=== PATIENT | female | born 1945 | race Caucasian/White ===

== ENCOUNTER 2018-04-08 14:01 | Emergency (ER) | payer OTHER ==
[~2018-04-08] VITALS: Ht 172.7 cm; Wt 54.4 kg
[~2018-04-08 14:01] MED LIST: ALBU90OI61 INH; ALEN70 PO; ALPR.25 PO; AMLO10 PO; AMLO5 PO; AMOCLA875 PO; ASPI81CH PO; AZIT500 PO; Aspirin EC81 MG PO; CALC1.25T PO; CHLO25B PO; CHOL10002; CHOL10002 PO; Cephalexin500 MG PO; FERR325 PO; FLUSAL2505 INH; GLUC500 PO; GUAI600T33 PO; HYDACE5 PO; IRON150C PO; LEVFLO250 PO; LEVFLO500 PO; LISI5 PO; METF500 PO; Micro-K10 MEQ PO; NEOPOLHYDS OT; OMEP20ER PO; OXYACE5T PO; Prilosec Otc20 MG PO; THEO100ERA PO; TIOT18 IH; TIOT18 INH
[2018-04-08] MEDS ORDERED: METF500C PO (14:29)
[2018-04-08 14:48] LABS: BASOPHILS ABSOLUTE AUTO 0.06 K/mm3 (0.00-0.23); BASOPHILS PERCENT AUTO 1 % (0-2); EOSINOPHILS ABSOLUTE AUTO 0.34 K/mm3 (0.00-0.68); EOSINOPHILS PERCENT AUTO 3 % (0-6); Hematocrit 33.2 % (33.0-51.0); Hemoglobin 11.2 g/dL (11.5-16.0); IMMATURE GRAN ABSOLUTE AUTO 0.06 K/mm3 (0.00-0.10); IMMATURE GRAN PERCENT AUTO 1 % (0-1); LYMPHOCYTES ABSOLUTE AUTO 3.43 K/mm3 (0.84-5.20); LYMPHOCYTES PERCENT AUTO 31 % (21-46); MONOCYTES PERCENT AUTO 6 % (4-13); Mean Corpuscular HGB 30.4 pg (26.0-34.0); Mean Corpuscular HGB Conc 33.7 g/dL (31.5-36.5); Mean Corpuscular Volume 90 fL (80-100); Mean Platelet Volume 8.8 fL (9.1-12.4); NEUTROPHILS ABSOLUTE AUTO 6.46 K/mm3 (1.96-9.15); NEUTROPHILS PERCENT AUTO 59 % (41-73); Platelet Count 325 K/mm3 (150-400); RDW Coefficient Variation 14.2 % (11.7-14.2); RDW Standard Deviation 46.8 fL (35.1-46.3); Red Blood Cell Count 3.68 M/mm3 (3.80-5.20); White Blood Cell Count 11.05 K/mm3 (4.00-11.30)
[2018-04-08 15:38] LABS: Alanine Aminotransfer (ALT/SGP 26 U/L (12-78); Albumin, Blood 3.5 g/dL (3.4-5.0); Albumin/Globulin Ratio 0.7 (0.8-1.8); Alk Phos 85 U/L (50-136); Anion Gap 8 mmol/L (6-16); Aspartate Aminotrans (AST/SGOT 19 U/L (12-37); Bilirubin, Total 0.6 mg/dL (0.1-1.0); Blood Urea Nitrogen 11 mg/dL (8-24); CO2, Blood 23 mmol/L (21-32); Calcium, Blood 8.8 mg/dL (8.5-10.1); Chloride, Blood 101 mmol/L (98-108); Creatinine, Blood 0.79 mg/dL (0.40-1.00); Globulin, Blood 4.7 g/dL (2.2-4.0); Glomerular Filtration Rate >60 (60-); Glucose, Blood 117 mg/dL (70-99); Potassium, Blood 4.1 mmol/L (3.5-5.5); Sodium, Blood 132 mmol/L (136-145); Total Protein, Blood 8.2 g/dL (6.4-8.2); Troponin I <0.015 ng/mL (0.000-0.040)
== END 2018-04-08 18:58 | disposition home or self-care (01) ==
LOC: ER 14:01
PROVIDERS: Emergency Medicine
DX: R55 Syncope and collapse (principal); R07.9 Chest pain, unspecified; Z79.84 Long term (current) use of oral hypoglycemic drugs; Z79.899 Other long term (current) drug therapy; I10 Essential (primary) hypertension; J44.9 Chronic obstructive pulmonary disease, unspecified; F17.210 Nicotine dependence, cigarettes, uncomplicated
CPT/HCPCS: 36415; 71046; 80053; 83735; 83880; 84443; 84484; 85025; 93005; 93010; 99285-25; J7120

== ENCOUNTER 2019-01-11 08:03 | Day surgery (SDC) | payer OTHER ==
[~2019-01-11] VITALS: Ht 152.4 cm; Wt 48.1 kg
[~2019-01-11 08:03] MED LIST changes: +METF500C PO; +SUCR1 PO
--- NOTE | 2019-01-11 08:26 | NUR ---
Ambulatory in Day SurgeryPatient states colon prep results clear. History, Chart, Medications and Allergies reviewed before start of procedure.Lungs clear T/O to Auscultation. Patient confirms NPO status and agrees with scheduled surgery. Patient States Post-Procedure ride home has been arranged.
--- NOTE | 2019-01-11 09:13 | NUR ---
01/11/19 0913 Jenny De Leon PATIENT DETERMINED TO BE ASA APPROPRIATE FOR PROPOFOL SEDATION PRIOR TO START OF PROCEDURE BY DR. RANGEL. 3-LEAD EKG REVIEWED WITH PHYSICIAN PRIOR TO START OF PROCEDURE. PATIENT CONFIRMS NPO STATUS AND AGREES WITH SCHEDULED PROCEDURE. History, Chart, Medications and Allergies reviewed before start of procedure. MONITOR INTACT WITH CONTINUOUS PULSE OXIMETRY AND INTERMITTENT BP. O2 VIA N/C INTACT THROUGHOUT SEDATION/PROCEDURE VIA POM MASK AT 10 L TO START. Bite Block Placed IMMEDIATELY POST HURRICAINE SPRAY TO OROPHARYX PREPROCEDURE.
--- NOTE | 2019-01-11 09:40 | NUR ---
PT TO STEP. DENIES PAIN OR NAUSEA. ADVISED TO PASS AIR IF FEELING CRAMPY AND ABLE.
--- NOTE | 2019-01-11 10:05 | NUR ---
WRITTEN AND VERBAL D/C INSTUCTIONS GIVEN TO PT AND SON WITH STATED UNDERSTANDING. TOLERATING PO.
== END 2019-01-11 22:53 | disposition home or self-care (01) ==
LOC: ORSCMMR 08:03 → ORD 09:00 → ORSCMMR 09:00
PROVIDERS: Internal Medicine Gastroenterology
PROC: 0DBL8ZX Excision of Transverse Colon, Via Natural or Artificial Opening Endoscopic, Diagnostic (ICD-10-PCS; principal; 2019-01-11 09:00)
PROC: 0DBP8ZX Excision of Rectum, Via Natural or Artificial Opening Endoscopic, Diagnostic (ICD-10-PCS; principal; 2019-01-11 09:00)
PROC: 0DB68ZX Excision of Stomach, Via Natural or Artificial Opening Endoscopic, Diagnostic (ICD-10-PCS; principal; 2019-01-11 09:00)
PROC: 0DB98ZX Excision of Duodenum, Via Natural or Artificial Opening Endoscopic, Diagnostic (ICD-10-PCS; principal; 2019-01-11 09:00)
PROC: 0DB48ZX Excision of Esophagogastric Junction, Via Natural or Artificial Opening Endoscopic, Diagnostic (ICD-10-PCS; principal; 2019-01-11 09:00)
PROC: 0DBK8ZX Excision of Ascending Colon, Via Natural or Artificial Opening Endoscopic, Diagnostic (ICD-10-PCS; principal; 2019-01-11 09:00)
DX: R10.13 Epigastric pain (principal); K44.9 Diaphragmatic hernia without obstruction or gangrene; Z12.11 Encounter for screening for malignant neoplasm of colon; D12.2 Benign neoplasm of ascending colon; D12.3 Benign neoplasm of transverse colon; K62.1 Rectal polyp; E11.9 Type 2 diabetes mellitus without complications; I10 Essential (primary) hypertension; J44.9 Chronic obstructive pulmonary disease, unspecified; Z79.899 Other long term (current) drug therapy; F17.210 Nicotine dependence, cigarettes, uncomplicated
CPT/HCPCS: 82947; 88305; 88342; J2704; J7120

== ENCOUNTER 2019-03-18 00:34 | Day surgery (SDC) | payer OTHER ==
[~2019-03-18 00:34] MED LIST changes: +FLUT1DIS5 INH
[2019-03-18 10:33] LABS: Performing Lab VERACYTE; Test Name FNA
== END 2019-03-18 23:10 | disposition home or self-care (01) ==
LOC: US 00:34
PROVIDERS: Internal Medicine Hematology & Oncology
DX: E04.1 Nontoxic single thyroid nodule (principal); C90.00 Multiple myeloma not having achieved remission
CPT/HCPCS: 10005

== ENCOUNTER 2019-05-04 16:00 | Inpatient (IN) | payer OTHER ==
[~2019-05-04] VITALS: Ht 160 cm; Wt 49.3 kg
[2019-05-04 16:43] LABS: BASOPHILS ABSOLUTE AUTO 0.01 K/mm3 (0.00-0.23); BASOPHILS PERCENT AUTO 0 % (0-2); EOSINOPHILS ABSOLUTE AUTO 0.04 K/mm3 (0.00-0.68); EOSINOPHILS PERCENT AUTO 0 % (0-6); Hematocrit 31.6 % (33.0-51.0); Hemoglobin 10.9 g/dL (11.5-16.0); IMMATURE GRAN ABSOLUTE AUTO 0.05 K/mm3 (0.00-0.10); IMMATURE GRAN PERCENT AUTO 0 % (0-1); LYMPHOCYTES ABSOLUTE AUTO 2.65 K/mm3 (0.84-5.20); LYMPHOCYTES PERCENT AUTO 22 % (21-46); MONOCYTES ABSOLUTE AUTO 1.04 K/mm3 (0.16-1.47); MONOCYTES PERCENT AUTO 9 % (4-13); Mean Corpuscular HGB 30.4 pg (26.0-34.0); Mean Corpuscular HGB Conc 34.5 g/dL (31.5-36.5); Mean Platelet Volume 11.8 fL (9.1-12.4); NEUTROPHILS ABSOLUTE AUTO 8.31 K/mm3 (1.96-9.15); NEUTROPHILS PERCENT AUTO 69 % (41-73); Platelet Count 181 K/mm3 (150-400); RDW Coefficient Variation 15.3 % (11.7-14.2); RDW Standard Deviation 49.1 fL (35.1-46.3); Red Blood Cell Count 3.59 M/mm3 (3.80-5.20)
[2019-05-04 17:01] LABS: Alanine Aminotransfer (ALT/SGP 25 U/L (12-78); Albumin, Blood 3.2 g/dL (3.4-5.0); Albumin/Globulin Ratio 1.1 (0.8-1.8); Alk Phos 73 U/L (50-136); Anion Gap 9 mmol/L (6-16); Aspartate Aminotrans (AST/SGOT 9 U/L (12-37); Bilirubin, Total 0.2 mg/dL (0.1-1.0); Blood Urea Nitrogen 17 mg/dL (8-24); CO2, Blood 23 mmol/L (21-32); Calcium, Blood 8.3 mg/dL (8.5-10.1); Chloride, Blood 102 mmol/L (98-108); Creatinine, Blood 0.71 mg/dL (0.40-1.00); Globulin, Blood 2.8 g/dL (2.2-4.0); Glomerular Filtration Rate >60 (60-); Glucose, Blood 117 mg/dL (70-99); Potassium, Blood 2.9 mmol/L (3.5-5.5); Sodium, Blood 134 mmol/L (136-145)
[2019-05-04 17:14] LABS: Mean Corpuscular Volume 88 fL (80-100)
[2019-05-04 17:33] LABS: Source, Urine Clean Catch
[2019-05-04 17:39] LABS: Bilirubin, Urine Neg (Neg); Blood, Urine 1+ (Neg); Glucose Qualitative, Urine Neg (Neg); Ketones, Urine Neg (Neg); Leukocyte Esterase, Urine 3+ (Neg); Nitrite, Urine Neg (Neg); Protein, Urine 2+ (Neg); Specific Gravity, Urine 1.015 (1.003-1.022); Urobilinogen, Urine NORM (Normal)
[2019-05-04 17:58] LABS: Appearance, Urine Hazy (Clear); Color, Urine Yellow (P-Yellow)
[2019-05-04 18:02] LABS: Bacteria Mod /hpf; Red Blood Cells, Urine Not Seen /hpf (0-2); Squamous Epithelial Cells Few /hpf (Few); Trichomonas Few /hpf
[2019-05-04 18:03] LABS: Calcium Oxalate Crystals Many /hpf
[2019-05-04] MEDS ORDERED: CHOL10002 PO (19:24)
[2019-05-04] MEDS ORDERED: CALCIUM 500 MG1 EACH PO (19:26)
[2019-05-04] MEDS ORDERED: FERSU300 PO (19:27)
[2019-05-04] MEDS ORDERED: Revlimid25 MG PO (19:28)
[2019-05-04] MEDS ORDERED: DEXA4 PO (19:28)
[2019-05-04] MEDS ORDERED: ACYC200 PO (19:29)
[2019-05-04] MEDS ORDERED: METF500 PO (22:53)
[2019-05-04] MEDS ORDERED: ONDA4 (22:54)
[2019-05-04] MEDS ORDERED: ALPR.25 (22:55)
[2019-05-04] MEDS ORDERED: Velcade3.5 MG (22:58)
[2019-05-05 02:57] LABS: Campylobacter Sp Not Detected (NOT DETECT); Enteroaggregative E. coli-EAEC Not Detected (NOT DETECT); Enteropathogenic E. coli-EPEC Detected (NOT DETECT); Enterotoxigenic E. coli-ETEC Not Detected (NOT DETECT); Plesiomonas Shigelloides Not Detected (NOT DETECT); Salmonella Sp Not Detected (NOT DETECT); Vibrio Cholerae Not Detected (NOT DETECT); Vibrio Sp Not Detected (NOT DETECT); Yersinia Enterocolitica Not Detected (NOT DETECT)
[2019-05-05 02:58] LABS: Adenovirus F 40/41 Not Detected (NOT DETECT); Astrovirus Not Detected (NOT DETECT); Cryptosporidium Not Detected (NOT DETECT); Cyclospora Cayetanensis Not Detected (NOT DETECT); E. Coli O157 Not Detected (NOT DETECT); Entamoeba Histolytica Not Detected (NOT DETECT); Giardia Lamblia Not Detected (NOT DETECT); Norovirus GI/GII Not Detected (NOT DETECT); Rotavirus A Not Detected (NOT DETECT); Sapovirus Not Detected (NOT DETECT); Shiga Toxin-prod E. coli-STEC Not Detected (NOT DETECT); Shigella/Enteroin E. coli-EIEC Not Detected (NOT DETECT)
[2019-05-05 04:11] LABS: BASOPHILS ABSOLUTE AUTO 0.02 K/mm3 (0.00-0.23); BASOPHILS PERCENT AUTO 0 % (0-2); EOSINOPHILS ABSOLUTE AUTO 0.04 K/mm3 (0.00-0.68); EOSINOPHILS PERCENT AUTO 0 % (0-6); Hematocrit 32.8 % (33.0-51.0); Hemoglobin 11.3 g/dL (11.5-16.0); IMMATURE GRAN ABSOLUTE AUTO 0.04 K/mm3 (0.00-0.10); IMMATURE GRAN PERCENT AUTO 0 % (0-1); LYMPHOCYTES ABSOLUTE AUTO 2.63 K/mm3 (0.84-5.20); LYMPHOCYTES PERCENT AUTO 23 % (21-46); MONOCYTES ABSOLUTE AUTO 0.93 K/mm3 (0.16-1.47); MONOCYTES PERCENT AUTO 8 % (4-13); Mean Corpuscular HGB Conc 34.5 g/dL (31.5-36.5); Mean Corpuscular Volume 90 fL (80-100); Mean Platelet Volume 11.5 fL (9.1-12.4); NEUTROPHILS ABSOLUTE AUTO 7.87 K/mm3 (1.96-9.15); NEUTROPHILS PERCENT AUTO 68 % (41-73); Platelet Count 188 K/mm3 (150-400); RDW Coefficient Variation 15.6 % (11.7-14.2); Red Blood Cell Count 3.64 M/mm3 (3.80-5.20); White Blood Cell Count 11.53 K/mm3 (4.00-11.30)
[2019-05-05 04:38] LABS: Anion Gap 5 mmol/L (6-16); Blood Urea Nitrogen 11 mg/dL (8-24); Bun/Creatinine Ratio 18.5 (12.0-20.0); CO2, Blood 23 mmol/L (21-32); Calcium, Blood 7.7 mg/dL (8.5-10.1); Chloride, Blood 110 mmol/L (98-108); Glomerular Filtration Rate >60 (60-); Glucose, Blood 86 mg/dL (70-99); Potassium, Blood 4.2 mmol/L (3.5-5.5); Sodium, Blood 138 mmol/L (136-145)
[2019-05-05 04:39] LABS: Prealbumin, Blood 17.2 mg/dL (20.0-40.0)
--- NOTE | 2019-05-05 04:39 | NUR ---
SHIFT SUMMARY PT ER ADMIT THIS SHIFT FOR COLITIS C/O DIARRHEA X 2 WEEKS WITH ABD PAIN, LOSS OF APPETITE AND N/V. HYPOKALEMIA R/T DIARRHEA. PRIOR TO ADMISSION PT RECEIVED FLUIDS AND IV ABX, AND SINCE HER ADMISSION SHE HAS BEEN REPLACED WITH A TOTAL OF 60 MEQ OF IV POTASSIUM PER ORDERS AND CONTINIOUS FLUIDS AT 100 ML/HR. PT ALSO RECEIVED FLAGYL. SHE HAS HAD A COUPLE LOOSE STOOLS, ONE INCONTINENT. GI PANEL SENT WHICH WAS POSITIVE FOR E COLI. PT DENIES N/V, AND HAS DECLINED ANYTHING FOR PAIN. PT INDEPENDENT IN THE ROOM. VITALS ARE STABLE. STAT POTASSIUM THIS MORNING CAME BACK WITHIN NORMAL LIMITS. ADMISSION COMPLETE. MED REC INCOMPLETE. WILL NOTIFY DAYSHIFT RN FOR FOLLOW UP. WILL CONTINUE TO MONITOR AND REPORT TO ONCOMING RN.
--- NOTE | 2019-05-05 16:17 | NUR ---
[facility] intial note: Mrs. Lim appears quite frail and weak. She was lying in bed. Her son was at bedside. He said nothing to me and did not look up from his phone. Jennifer lemusves she will get better. She does not know if her cancer treatments are palliative or curative. She is non-zoroastrianism, but was gracious about me visiting. She was too frail for lengthy conversation. I offered encouragement and assurance of excellent care and attention. She denied needs or concerns. I will remain available.
--- NOTE | 2019-05-05 17:58 | NUR ---
SHIFT SUMMARY PT RESTING IN BED MOST THE DAY. NAPPING ON & OFF. PT RECIEVED SHOWER THIS SHIFT. NO CHANGES IN ASSESSMENT AT THIS TIME. VSS. WILL CONTINUE TO MONITOR UNTIL TURNOVER IS COMPLETE.
--- NOTE | 2019-05-06 03:55 | NUR ---
SHIFT SUMMARY PATIENT HAD NO ACUTE CHANGES OBSERVED THIS SHIFT. AXO X3 AND INDEPENDENT IN THE ROOM. PIV REMAINS INTACT. NS INFUSING AT 100 mL/HR. IV ABX INFUSED. DENIES PAIN, SOB, AND N/V. TAKES MEDICATION WHOLE WITH WATER. COOPERATIVE WITH CARE. CALL LIGHT IN REACH. BED IN LOWEST POSITION. WILL CONTINUE TO MONITOR UNTIL DAY SHIFT NURSE ASSUMES CARE.
[2019-05-06 05:17] LABS: BASOPHILS ABSOLUTE AUTO 0.02 K/mm3 (0.00-0.23); BASOPHILS PERCENT AUTO 0 % (0-2); EOSINOPHILS ABSOLUTE AUTO 0.09 K/mm3 (0.00-0.68); EOSINOPHILS PERCENT AUTO 1 % (0-6); Hematocrit 32.4 % (33.0-51.0); Hemoglobin 10.9 g/dL (11.5-16.0); IMMATURE GRAN ABSOLUTE AUTO 0.04 K/mm3 (0.00-0.10); IMMATURE GRAN PERCENT AUTO 0 % (0-1); LYMPHOCYTES ABSOLUTE AUTO 2.82 K/mm3 (0.84-5.20); LYMPHOCYTES PERCENT AUTO 29 % (21-46); MONOCYTES ABSOLUTE AUTO 0.86 K/mm3 (0.16-1.47); MONOCYTES PERCENT AUTO 9 % (4-13); Mean Corpuscular HGB 29.9 pg (26.0-34.0); Mean Corpuscular HGB Conc 33.6 g/dL (31.5-36.5); Mean Corpuscular Volume 89 fL (80-100); Mean Platelet Volume 10.5 fL (9.1-12.4); NEUTROPHILS ABSOLUTE AUTO 5.89 K/mm3 (1.96-9.15); NEUTROPHILS PERCENT AUTO 61 % (41-73); Platelet Count 188 K/mm3 (150-400); RDW Coefficient Variation 15.7 % (11.7-14.2); Red Blood Cell Count 3.64 M/mm3 (3.80-5.20); White Blood Cell Count 9.72 K/mm3 (4.00-11.30)
[2019-05-06 05:38] LABS: Alanine Aminotransfer (ALT/SGP 20 U/L (12-78); Albumin, Blood 2.9 g/dL (3.4-5.0); Albumin/Globulin Ratio 1.1 (0.8-1.8); Alk Phos 67 U/L (50-136); Anion Gap 7 mmol/L (6-16); Aspartate Aminotrans (AST/SGOT 10 U/L (12-37); Bilirubin, Total 0.3 mg/dL (0.1-1.0); Blood Urea Nitrogen 6 mg/dL (8-24); Bun/Creatinine Ratio 9.3 (12.0-20.0); CO2, Blood 25 mmol/L (21-32); Calcium, Blood 7.6 mg/dL (8.5-10.1); Chloride, Blood 105 mmol/L (98-108); Creatinine, Blood 0.64 mg/dL (0.40-1.00); Globulin, Blood 2.6 g/dL (2.2-4.0); Glomerular Filtration Rate >60 (60-); Glucose, Blood 83 mg/dL (70-99); Magnesium, Blood 1.7 mg/dL (1.6-2.4); Potassium, Blood 3.2 mmol/L (3.5-5.5); Sodium, Blood 137 mmol/L (136-145); Total Protein, Blood 5.5 g/dL (6.4-8.2)
--- NOTE | 2019-05-06 16:28 | NUR ---
Upon receiving an admit referral, I visited patient and found her lying in bed and alert. Patient openly shared about her douglas with cancer, her family unit complications and her spiritual background. Patient shared about how tough she is but also about some of her fears. I listened empathically, normalized her experience, reinforced helpful attitudes and practices and provided spiritual guidance and prayer. Patient responded well and and displayed evidence of restored hannah.
--- NOTE | 2019-05-06 18:09 | NUR ---
PATIENT HAS RESTED MOST OF THE SHIFT. PATIENT ABLE TO AMBULATE SAFELY TO THE RESTROOM AND USES CALL LIGHT APPROPRIATLEY. SHE HAS HAD NO COMPLAINTS OF PAIN, SOB, NV. FAMILY AT BEDSIDE THROUGH OUT SHIFT. NO ACUTE CHANGES.
--- NOTE | 2019-05-07 03:55 | NUR ---
SHIFT SUMMARY PATIENT HAD NO ACUTE CHANGES OBSERVED THIS SHIFT. RT IN FOR BREATHING TX AT SHIFT CHANGE. AXOX 3 AND INDEPENDENT. PIV REMAINS INTACT. NS INFUSING AT 100 mL/HR. TAKES MEDICATION WHOLE WITH WATER. VSS/AFEBRILE. DENIES PAIN, SOB, AND N/V. IV ABX INFUSED. COOPERATIVE WITH CARE. CALL LIGHT IN REACH. BED IN LOWEST POSITION. WILL CONTINUE TO MONITOR UNTIL DAY SHIFT NURSE ASSUMES CARE.
--- NOTE | 2019-05-07 15:05 | NUR ---
Pt up in chair, Review of her needs and symptoms. She denies headaches, She states after her treatment the rusing and ringinin gin ears is so bad she can barely hear. She denies sores in her mouth or nose no tounge soreness. She has significant dry eye and a gritty feeling of a film over her eyes. She has saline and visine that keeps it reduced. She has minimal dyspnea, no GERD some mild nausea. Food is very difficult, today less cramping and bloating. She denies having difficulty voiding. She denies falls states she is moderately active. she has mild general pain and fatigue comes and goes. moderate sleep. She states that she has to wear gloves and when she talkes her meds and was advised to be careful with contact due to the medications. She states she still has her ovaries so they make her take a test before filling her meds. Review if this was maybe a different test and she states it is a pregnacy test. Pt is tearfull because she was told she is toxic from the medications so she isolates and stays in bed and will not let her family touch her. She is accepting of her care plan but unsure of some of the details. Asked for eye drops from physician. will see if I can get her some information on her potential exposure and give her some comfort and clarity on her care.
--- NOTE | 2019-05-07 15:38 | NUR ---
updated mulu iglesias on pt understanding of treatment. She will give pt some education and will follow up with staff at cancer center. Goal is to reduce patients fear and isolation. will follow up will advance care planning
--- NOTE | 2019-05-07 17:00 | NUR ---
PATIENT IS A/OX4 AND UP INDEPENDENTLY IN ROOM. TOLERATING REGULAR DIET, ENCOURAGING PO INTAKE. 20G IV TO L FA WNL, NS @ 100ML/HR INFUSING. PATIENT RECEIVING ROCEPHIN AND FLAGYL. CONTINENT OF BOWEL AND BLADDER. SKIN INTACT. DENIES ANY PAIN OR NAUSEA THIS SHIFT. VSS, ON RA. CALM AND COOPERATIVE WITH CARE, CALLS APPROPRIATELY FOR ASSISTANCE.
--- NOTE | 2019-05-08 05:02 | NUR ---
SHIFT SUMMARY PT PLEASANT AND COOPERATIVE. SLEPT WELL THROUGH MUCH OF THE NIGHT. DENIED ANY ABD PAIN/DISCOMFORT OR NAUSEA. CONTINUES TO HAVE SOME LOOSE STOOL BUT PT STATES, "MUCH BETTER THAN IT WAS". NEW IV PLACED TO RFA DUE TO LFA IV LEAKING. MILD ABD DISTENTION THAT PT STATES IS NORMAL. ABD IS SOFT AND NON TENDER. PT TOLERATING FOOD WELL, EAGER TO COMPLETE MEALS AND IMPROVE WEIGHT. VITAL SIGNS STABLE. NO ACUTE CHANGES THIS SHIFT.
[2019-05-08 05:25] LABS: BASOPHILS ABSOLUTE AUTO 0.03 K/mm3 (0.00-0.23); BASOPHILS PERCENT AUTO 0 % (0-2); EOSINOPHILS ABSOLUTE AUTO 0.21 K/mm3 (0.00-0.68); EOSINOPHILS PERCENT AUTO 2 % (0-6); Hematocrit 32.9 % (33.0-51.0); Hemoglobin 11.1 g/dL (11.5-16.0); IMMATURE GRAN ABSOLUTE AUTO 0.06 K/mm3 (0.00-0.10); IMMATURE GRAN PERCENT AUTO 1 % (0-1); LYMPHOCYTES ABSOLUTE AUTO 2.41 K/mm3 (0.84-5.20); LYMPHOCYTES PERCENT AUTO 21 % (21-46); MONOCYTES ABSOLUTE AUTO 0.94 K/mm3 (0.16-1.47); MONOCYTES PERCENT AUTO 8 % (4-13); Mean Corpuscular HGB 30.3 pg (26.0-34.0); Mean Corpuscular HGB Conc 33.7 g/dL (31.5-36.5); Mean Corpuscular Volume 90 fL (80-100); Mean Platelet Volume 10.2 fL (9.1-12.4); NEUTROPHILS ABSOLUTE AUTO 7.97 K/mm3 (1.96-9.15); NEUTROPHILS PERCENT AUTO 69 % (41-73); Platelet Count 258 K/mm3 (150-400); RDW Coefficient Variation 15.6 % (11.7-14.2); RDW Standard Deviation 51.5 fL (35.1-46.3); Red Blood Cell Count 3.66 M/mm3 (3.80-5.20); White Blood Cell Count 11.62 K/mm3 (4.00-11.30)
[2019-05-08 06:04] LABS: Anion Gap 7 mmol/L (6-16); Blood Urea Nitrogen 7 mg/dL (8-24); Bun/Creatinine Ratio 12.1 (12.0-20.0); CO2, Blood 25 mmol/L (21-32); Chloride, Blood 104 mmol/L (98-108); Creatinine, Blood 0.58 mg/dL (0.40-1.00); Glomerular Filtration Rate >60 (60-); Glucose, Blood 86 mg/dL (70-99); Magnesium, Blood 1.7 mg/dL (1.6-2.4); Potassium, Blood 3.6 mmol/L (3.5-5.5); Sodium, Blood 136 mmol/L (136-145)
[2019-05-08] MEDS ORDERED: ALPR.25 PO (10:00)
[2019-05-08] MEDS ORDERED: Amoxicillin500 M1 PO (10:02)
[2019-05-08] MEDS ORDERED: METR500 PO (10:03)
[2019-05-08] MEDS ORDERED: ONDA4 PO (10:09)
--- NOTE | 2019-05-08 11:30 | NUR ---
DISCHARGE PT STATE FEELING IMPROVED, DIARRHEA HAS SLOWED, NO LONGER WATERY. DR HAWK IN TO SEE HER STATE SHE MAY GO HOME TODAY, PT STATE FEELS READY. DR PROVIDE D/C HOME ORDERS. SCRIPTS FAXED TO [facility]/REQUEST. IV D/C INTACT. D/C INSTRUCT REVIEWED w PT & FAMILY. PT DECLINES W/C ESCORT FROM HOSP PREFERS TO AMBULATE. PLEASANT/APPRECIATIVE AFFECT.
== END 2019-05-08 11:30 | disposition home or self-care (01) | DRG 392 ==
LOC: ER 16:00 → MEDS 19:17
PROVIDERS: Emergency Medicine; Hospitalist; Internal Medicine; Nurse Practitioner Acute Care; ADMIT Internal Medicine
DX: K52.9 Noninfective gastroenteritis and colitis, unspecified (principal); C90.00 Multiple myeloma not having achieved remission; E44.0 Moderate protein-calorie malnutrition; Z68.1 Body mass index [BMI] 19.9 or less, adult; E87.6 Hypokalemia; D64.81 Anemia due to antineoplastic chemotherapy; I10 Essential (primary) hypertension; E11.9 Type 2 diabetes mellitus without complications; J44.9 Chronic obstructive pulmonary disease, unspecified; F17.210 Nicotine dependence, cigarettes, uncomplicated; Z92.21 Personal history of antineoplastic chemotherapy; Z79.51 Long term (current) use of inhaled steroids; Z79.899 Other long term (current) drug therapy
CPT/HCPCS: 0097U; 36415; 74177; 80048; 80053; 81001; 82784; 82947; 83690; 83735; 84132; 84134; 84165; 85025; 86334; 87086; 93005; 93010; 94640; 94760; 96361; 96365-59; 96367; 96375; 97161; 97530; 99285-25; A9270; J0696; J0744; J1650; J2405; J3475; J3480; J7030; Q9967

== ENCOUNTER → 2019-07-01 | Outpatient (CLI) | payer OTHER ==
[~2019-07-01] MED LIST changes: +ACYC200 PO; +ALPR.25; +Amoxicillin500 M1 PO; +CALCIUM 500 MG1 EACH PO; +DEXA4 PO; +FERSU300 PO; +METR500 PO; +ONDA4; +ONDA4 PO; +Revlimid25 MG PO; +Velcade3.5 MG
== END ==
LOC: LAB 14:00 → LAB SHORT 14:00 → LAB FUT 06-30 07:35
DX: C90.00 Multiple myeloma not having achieved remission (principal)
CPT/HCPCS: 81025

== ENCOUNTER 2019-11-10 16:44 | Inpatient (IN) | payer OTHER ==
[~2019-11-10] VITALS: Ht 160 cm; Wt 41.9 kg
[~2019-11-10 16:44] MED LIST changes: -ALPR1 PO; -CALCIUM GUMMIE1 EACH PO; -LEVO750 PO; -PRED20 PO; -PREG50 PO
[2019-11-10 17:43] LABS: BASOPHILS ABSOLUTE AUTO 0.03 K/mm3 (0.00-0.23); BASOPHILS PERCENT AUTO 0 % (0-2); EOSINOPHILS ABSOLUTE AUTO 0.05 K/mm3 (0.00-0.68); EOSINOPHILS PERCENT AUTO 0 % (0-6); Hemoglobin 10.1 g/dL (11.5-16.0); IMMATURE GRAN ABSOLUTE AUTO 0.13 K/mm3 (0.00-0.10); IMMATURE GRAN PERCENT AUTO 1 % (0-1); LYMPHOCYTES ABSOLUTE AUTO 1.22 K/mm3 (0.84-5.20); LYMPHOCYTES PERCENT AUTO 8 % (21-46); MONOCYTES ABSOLUTE AUTO 1.31 K/mm3 (0.16-1.47); MONOCYTES PERCENT AUTO 9 % (4-13); Mean Corpuscular HGB 30.1 pg (26.0-34.0); Mean Corpuscular HGB Conc 33.7 g/dL (31.5-36.5); Mean Corpuscular Volume 89 fL (80-100); Mean Platelet Volume 10.3 fL (9.1-12.4); NEUTROPHILS ABSOLUTE AUTO 12.08 K/mm3 (1.96-9.15); NEUTROPHILS PERCENT AUTO 82 % (41-73); Platelet Count 214 K/mm3 (150-400); RDW Coefficient Variation 14.2 % (11.7-14.2); RDW Standard Deviation 46.1 fL (35.1-46.3); Red Blood Cell Count 3.36 M/mm3 (3.80-5.20); White Blood Cell Count 14.82 K/mm3 (4.00-11.30)
[2019-11-10 18:11] LABS: Influenza A Negative (NEGATIVE); Influenza B Negative (NEGATIVE)
[2019-11-10 18:36] LABS: Alanine Aminotransfer (ALT/SGP 58 U/L (12-78); Albumin, Blood 2.8 g/dL (3.4-5.0); Albumin/Globulin Ratio 0.7 (0.8-1.8); Alk Phos 103 U/L (50-136); Anion Gap 5 mmol/L (6-16); Aspartate Aminotrans (AST/SGOT 18 U/L (12-37); Bilirubin, Total 0.4 mg/dL (0.1-1.0); Blood Urea Nitrogen 13 mg/dL (8-24); Bun/Creatinine Ratio 23.9 (12.0-20.0); CO2, Blood 24 mmol/L (21-32); Chloride, Blood 102 mmol/L (98-108); Creatinine, Blood 0.55 mg/dL (0.40-1.00); Globulin, Blood 4.3 g/dL (2.2-4.0); Glomerular Filtration Rate >60 (60-); Glucose, Blood 101 mg/dL (70-99); Potassium, Blood 2.9 mmol/L (3.5-5.5); Sodium, Blood 131 mmol/L (136-145); Total Protein, Blood 7.1 g/dL (6.4-8.2)
[2019-11-10] MEDS ORDERED: PREG50 PO (21:14)
[2019-11-10 21:16] LABS: Source, Urine Clean Catch
[2019-11-10 21:20] LABS: Bilirubin, Urine Neg (Neg); Blood, Urine 4+ (Neg); Glucose Qualitative, Urine Neg (Neg); Ketones, Urine Neg (Neg); Leukocyte Esterase, Urine Neg (Neg); Nitrite, Urine Neg (Neg); Protein, Urine 4+ (Neg); Specific Gravity, Urine 1.015 (1.003-1.022); Urobilinogen, Urine NORM (Normal)
[2019-11-10 21:26] LABS: Appearance, Urine Clear (Clear); Color, Urine Yellow (P-Yellow)
[2019-11-10 21:28] LABS: Bacteria Rare /hpf; Squamous Epithelial Cells Few /hpf (Few); White Blood Cells, Urine Not Seen /hpf (0-5)
--- NOTE | 2019-11-11 02:52 | NUR ---
2310: PT ARRIVED TO FLOOR. PT ABLE TO AMBULATE FROM STRETCHER TO BED WITH SBA. PER PATIENT SHE USES A CANE AT HOME OR WHEN SHE GOES OUT. SHE LIVS WITH HER DAUGHTER. SHE SAID HER DAUGHTER IS TO BRING THE MED LIST TOMORROW. (I WILL CALL HER IN THE AM TO VERIFY) PT IS AOX4 AND DENIES PAIN A THIS TIME. PT HAS A TEMP AND WAS GIVEN TYLENOL PER EMAR. RECEIVED NS @ 125ML/HR. MEDS GIVEN PER EMAR. PT RESTING QUIETLY. BED LOW AND LOCKED/ALARMED. CALL MORENO WITHIN REACH
[2019-11-11 05:25] LABS: BASOPHILS ABSOLUTE AUTO 0.02 K/mm3 (0.00-0.23); BASOPHILS PERCENT AUTO 0 % (0-2); EOSINOPHILS ABSOLUTE AUTO 0.02 K/mm3 (0.00-0.68); EOSINOPHILS PERCENT AUTO 0 % (0-6); Hematocrit 28.7 % (33.0-51.0); Hemoglobin 9.5 g/dL (11.5-16.0); IMMATURE GRAN PERCENT AUTO 2 % (0-1); LYMPHOCYTES ABSOLUTE AUTO 0.56 K/mm3 (0.84-5.20); LYMPHOCYTES PERCENT AUTO 4 % (21-46); MONOCYTES ABSOLUTE AUTO 0.33 K/mm3 (0.16-1.47); MONOCYTES PERCENT AUTO 3 % (4-13); Mean Corpuscular HGB 29.5 pg (26.0-34.0); Mean Corpuscular HGB Conc 33.1 g/dL (31.5-36.5); Mean Corpuscular Volume 89 fL (80-100); Mean Platelet Volume 10.1 fL (9.1-12.4); NEUTROPHILS ABSOLUTE AUTO 12.08 K/mm3 (1.96-9.15); NEUTROPHILS PERCENT AUTO 91 % (41-73); Platelet Count 203 K/mm3 (150-400); RDW Coefficient Variation 14.1 % (11.7-14.2); RDW Standard Deviation 45.7 fL (35.1-46.3); Red Blood Cell Count 3.22 M/mm3 (3.80-5.20); White Blood Cell Count 13.21 K/mm3 (4.00-11.30)
[2019-11-11 05:44] LABS: Alanine Aminotransfer (ALT/SGP 48 U/L (12-78); Albumin, Blood 2.3 g/dL (3.4-5.0); Albumin/Globulin Ratio 0.5 (0.8-1.8); Alk Phos 93 U/L (50-136); Anion Gap 7 mmol/L (6-16); Aspartate Aminotrans (AST/SGOT 20 U/L (12-37); Bilirubin, Total 0.4 mg/dL (0.1-1.0); Blood Urea Nitrogen 18 mg/dL (8-24); Bun/Creatinine Ratio 25.4 (12.0-20.0); CO2, Blood 24 mmol/L (21-32); Calcium, Blood 7.6 mg/dL (8.5-10.1); Chloride, Blood 104 mmol/L (98-108); Creatinine, Blood 0.71 mg/dL (0.40-1.00); Globulin, Blood 4.3 g/dL (2.2-4.0); Glomerular Filtration Rate >60 (60-); Glucose, Blood 118 mg/dL (70-99); Potassium, Blood 3.6 mmol/L (3.5-5.5); Sodium, Blood 135 mmol/L (136-145); Total Protein, Blood 6.6 g/dL (6.4-8.2)
[2019-11-11 06:11] LABS: Adenovirus Not Detected (NOT DETECT); Coronavirus 229E Not Detected (NOT DETECT); Coronavirus HKU1 Not Detected (NOT DETECT); Coronavirus NL63 Not Detected (NOT DETECT); Coronavirus OC43 Detected (NOT DETECT)
[2019-11-11 06:12] LABS: Bordetella pertussis Not Detected (NOT DETECT); Chlamydophila pneumoniae Not Detected (NOT DETECT); Human Metapneumovirus Not Detected (NOT DETECT); Human Rhinovirus/Enterovirus Not Detected (NOT DETECT); Influenza A Not Detected (NOT DETECT); Influenza A/2009-H1 Not Detected (NOT DETECT); Influenza A/H1 Not Detected (NOT DETECT); Influenza A/H3 Not Detected (NOT DETECT); Influenza B Not Detected (NOT DETECT); Mycoplasma pneumoniae Not Detected (NOT DETECT); Parainfluenza Virus 1 Not Detected (NOT DETECT); Parainfluenza Virus 2 Not Detected (NOT DETECT); Parainfluenza Virus 3 Not Detected (NOT DETECT); Parainfluenza Virus 4 Not Detected (NOT DETECT); Respiratory Syncytial Virus Not Detected (NOT DETECT)
--- NOTE | 2019-11-11 07:44 | NUR ---
END OF SHIFT: PATIENT RECEVED LEVAQUIN IVPB PER ORDER, AND 20 MEQ K-RIDERS (X2) DURING THE NIGHT.HER LUNG SOUNDS ARE COARSE THRU OUT AND SOME CRACKLES OVER THE BASES. NON PREODUCTIVE COUGH. SHE HAS BEED GETTING CHEMO FOR MULT. MYELOMA HER LAST TREATMENT WAS 10/28PASSED THIS TO DAY RN. [id number] TO BREING MED LIST TODAY
--- NOTE | 2019-11-11 12:06 | NUR ---
PER DR. DWYER, PATIENT MAY REMOVE TELE FOR SHOWER.
--- NOTE | 2019-11-11 16:27 | NUR ---
Received call from bedside RN Sirda and discussed case. Pt would like to be DNR and would benefit from further conversaiton about completing a POLST. Pt resting in bed and is A&Ox4. Pt denies pain, anxiety, and dyspnea. Engaged in therapeutic discussion regarding code status and competing POLST. Educated on life sustaining measures including risk factors and implications. Pt states she does not want CPR and does not want to be intubated. Assisted Pt in completing POLST with Pt's wishes being DNR with Limited Treatment. Listened as Pt discusses her cancer and plans to stop treatment in the near future. Discussed hospice as an option when she is ready to stop treatments. Pt expresses appreciation of visit and has no other concerns. Palliative Care will obtain copy of POLST for medical records upon hospitalist signature.
--- NOTE | 2019-11-11 18:12 | NUR ---
Shift Summary A/Ox3, pleasant and cooperative with care. SBA to bathroom, continent. Denies pain, c/o slight dyspnea on exertion. Patient on RA, saturations >94%. SO at bedside for most of the day. Pt c/o hx of spasms in throat. Dr. Lane notified, speech eval ordered. No signs of aspiration. No other concerns.
[2019-11-11] MEDS ORDERED: CALCIUM GUMMIE1 EACH PO (18:15)
[2019-11-11] MEDS ORDERED: ALPR1 PO (18:18)
--- NOTE | 2019-11-11 18:22 | NUR ---
Shift Summary A/Ox3. Pleasant and cooperative lady, afebrile during my shift. No c/o pain. Pt had shower today, on RA, saturations >90%. Palliative care nurse Cain consulted, POLST in room to be signed by , DNR band in place. SBA to bathroom d/t lines. Med rec completed by chargeback specialist. No other concerns.
--- NOTE | 2019-11-12 06:18 | NUR ---
SHIFT SUMMARY NO ACUTE CHANGES TO REPORT THIS SHIFT. PT HAS RESTED COMFORTABLY T/O THE NIGHT. PT STILL COMPLAINS OF SOB. IV SOLUMEDROL CONTINUED PER ORDERS. LUNGS DIMINISHED T/O. PT RESP APPEAR EVEN AND UNLABORED AT REST. PT A/OX4 AND CALLS APPROPRIATELY. ASSESSMENT UNCHANGED. IVF INFUSING ORDERED. BED IN LOWEST POSITION, CALL LIGHT WITHIN REACH. WILL CONTINUE TO MONITOR AND REPORT TO ONCOMING RN.
--- NOTE | 2019-11-12 13:41 | NUR ---
Spiritual care visit conducted. Patient is lsitting up in bed and alert. Patient shares about her life, family and medical history. Patient talks about her family unit complications and her concerns about her cancer and how things will go for her down the road. I listen empathically and provide a calming presence and grief support. Patient responds well and shows signs of being comforted and encouraged. I will continue to remain available to patient and family.
--- NOTE | 2019-11-12 17:33 | NUR ---
PATIENT A/OX4, UP INDEPENDENTLY IN ROOM. VSS, ON RA TODAY. 20G IV TO R FA, NS @ 100ML/HR INFUSING. ADA DIET, ACHS BLOOD SUGARS. PATIENT DENIES ANY PAIN OR DISCOMFORT. SKIN INTACT. PATIENT HOPES TO DC HOME TOMORROW.
--- NOTE | 2019-11-13 04:44 | NUR ---
SUMMARY PT HAD NO ISSUES OR COMPLAINTS. PT IS EAGER TO GO HOME. PT FAMILY VISITED. PT HAS SLEPT SINCE FAMILY LEFT FOR THE NIGHT. PT CURRENTLY SLEEPING AND BREATHING EASY. CALL LIGHT IN REACH.
[2019-11-13] MEDS ORDERED: GUAI600T33 PO (11:41)
[2019-11-13] MEDS ORDERED: PRED20 PO (11:42)
[2019-11-13] MEDS ORDERED: LEVO750 PO (11:43)
--- NOTE | 2019-11-13 12:55 | NUR ---
PT DISCHARGED. PT DISCHARGED AT 1255. PT IN STABLE CONDTION WITH VSS. PT EDUCATED ON DC INSTRUCTIONS. MEDS CALLED TO [facility]. PT DENIES QUESTIONS AT THIS TIME. PT ESCORTED OUT BY AIDE. TO BE DRIVEN HOME BY SON.
== END 2019-11-13 12:55 | disposition home health service (06) | DRG 871 ==
LOC: ER 16:44 → MEDS 23:11
PROVIDERS: Physician Assistant; ADMIT Internal Medicine
DX: A41.9 Sepsis, unspecified organism (principal); J96.01 Acute respiratory failure with hypoxia; J18.9 Pneumonia, unspecified organism; J44.0 Chronic obstructive pulmonary disease with (acute) lower respiratory infection; E46 Unspecified protein-calorie malnutrition; C90.00 Multiple myeloma not having achieved remission; J91.8 Pleural effusion in other conditions classified elsewhere; Z68.1 Body mass index [BMI] 19.9 or less, adult; E11.9 Type 2 diabetes mellitus without complications; I10 Essential (primary) hypertension; E87.6 Hypokalemia; D63.8 Anemia in other chronic diseases classified elsewhere; E83.42 Hypomagnesemia; R26.89 Other abnormalities of gait and mobility; Z66 Do not resuscitate; F17.210 Nicotine dependence, cigarettes, uncomplicated; D89.9 Disorder involving the immune mechanism, unspecified; K25.9 Gastric ulcer, unspecified as acute or chronic, without hemorrhage or perforation
CPT/HCPCS: 0099U; 36415; 71046; 80053; 81001; 82947; 83605; 83735; 85025; 87040; 87804; 94640; 94760; 96365; 96375; 97110; 97116; 97161; 97165; 99285-25; A9270; A9270-GY; J0456; J0713; J1650; J1956; J2405; J2543; J2930; J3010; J3370; J3480; J7030; J7050; J7512

== ENCOUNTER → 2019-11-10 | Outpatient (CLI) | payer OTHER ==
[~2019-11-10] MED LIST changes: +ALPR1 PO; +CALCIUM GUMMIE1 EACH PO; +LEVO750 PO; +PRED20 PO; +PREG50 PO
[2019-11-10 16:17] LABS: BASOPHILS ABSOLUTE AUTO 0.03 K/mm3 (0.00-0.23); BASOPHILS PERCENT AUTO 0 % (0-2); EOSINOPHILS ABSOLUTE AUTO 0.08 K/mm3 (0.00-0.68); EOSINOPHILS PERCENT AUTO 1 % (0-6); Hematocrit 30.6 % (33.0-51.0); Hemoglobin 10.3 g/dL (11.5-16.0); IMMATURE GRAN PERCENT AUTO 1 % (0-1); LYMPHOCYTES ABSOLUTE AUTO 1.42 K/mm3 (0.84-5.20); LYMPHOCYTES PERCENT AUTO 10 % (21-46); MONOCYTES ABSOLUTE AUTO 1.54 K/mm3 (0.16-1.47); MONOCYTES PERCENT AUTO 10 % (4-13); Mean Corpuscular HGB 30.1 pg (26.0-34.0); Mean Corpuscular HGB Conc 33.7 g/dL (31.5-36.5); Mean Corpuscular Volume 90 fL (80-100); Mean Platelet Volume 10.3 fL (9.1-12.4); NEUTROPHILS ABSOLUTE AUTO 11.79 K/mm3 (1.96-9.15); NEUTROPHILS PERCENT AUTO 79 % (41-73); Platelet Count 205 K/mm3 (150-400); RDW Coefficient Variation 14.2 % (11.7-14.2); RDW Standard Deviation 45.9 fL (35.1-46.3); Red Blood Cell Count 3.42 M/mm3 (3.80-5.20); White Blood Cell Count 14.96 K/mm3 (4.00-11.30)
[2019-11-10 16:50] LABS: Alanine Aminotransfer (ALT/SGP 62 U/L (12-78); Albumin/Globulin Ratio 0.7 (0.8-1.8); Alk Phos 106 U/L (50-136); Anion Gap 5 mmol/L (6-16); Aspartate Aminotrans (AST/SGOT 21 U/L (12-37); Bilirubin, Total 0.3 mg/dL (0.1-1.0); Blood Urea Nitrogen 15 mg/dL (8-24); Bun/Creatinine Ratio 26.1 (12.0-20.0); CO2, Blood 27 mmol/L (21-32); Calcium, Blood 8.3 mg/dL (8.5-10.1); Chloride, Blood 99 mmol/L (98-108); Creatinine, Blood 0.58 mg/dL (0.40-1.00); Globulin, Blood 4.5 g/dL (2.2-4.0); Glomerular Filtration Rate >60 (60-); Glucose, Blood 107 mg/dL (70-99); Potassium, Blood 3.1 mmol/L (3.5-5.5); Sodium, Blood 131 mmol/L (136-145); Total Protein, Blood 7.5 g/dL (6.4-8.2)
== END | disposition home or self-care (01) ==
LOC: LAB SHORT 15:50 → LAB 15:50
PROVIDERS: Registered Nurse Oncology
DX: C90.00 Multiple myeloma not having achieved remission (principal); R07.0 Pain in throat
CPT/HCPCS: 80053; 85025; 87081; 87430

== ENCOUNTER → 2020-01-05 | Outpatient (CLI) | payer OTHER ==
[~2020-01-05] MED LIST changes: -ACYC200 PO; +ACYC400 PO; +ALPR1 PO; +CALCIUM GUMMIE1 EACH PO; +Duoneb 2.5-0.5 M3 ML NEB; +FURO40 PO; +Florastor250 MG PO; +LEVO750 PO; +POTA10T PO; +PRED20 PO; +PREG50 PO; +VITAMIN D3125 MCG PO
== END | disposition home or self-care (01) ==
LOC: PLD 08:43 → LAB SHORT 08:43
DX: L72.0 Epidermal cyst (principal)
CPT/HCPCS: 88304

== ENCOUNTER 2020-01-06 19:57 | Inpatient (IN) | payer OTHER ==
[~2020-01-06] VITALS: Ht 157.5 cm; Wt 42.2 kg
[~2020-01-06 19:57] MED LIST changes: -ACYC400 PO; -ALPR1 PO; -AMLO10 PO; -CALCIUM GUMMIE1 EACH PO; -Duoneb 2.5-0.5 M3 ML NEB; -FERSU300 PO; -FLUT1DIS5 INH; -FURO40 PO; -Florastor250 MG PO; -POTA10T PO; -PREG50 PO; -SUCR1 PO; -TIOT18 INH; -VITAMIN D3125 MCG PO
[2020-01-06] MEDS ORDERED: FLUT1DIS5 INH (20:28)
[2020-01-06] MEDS ORDERED: TIOT18 INH (20:28)
[2020-01-06] MEDS ORDERED: AMLO10 PO (20:29)
[2020-01-06] MEDS ORDERED: ALBU90OI61 INH (20:29)
[2020-01-06] MEDS ORDERED: SUCR1 PO (20:30)
[2020-01-06 20:31] LABS: Hematocrit 31.3 % (33.0-51.0); Hemoglobin 9.8 g/dL (11.5-16.0); Mean Corpuscular HGB 31.5 pg (26.0-34.0); Mean Corpuscular HGB Conc 31.3 g/dL (31.5-36.5); Mean Corpuscular Volume 101 fL (80-100); NRBC ABSOLUTE 0.08 K/mm3 (0.00-0.02); NRBC Auto 0.4 /100 WBC (0.0-0.2); Platelet Count 255 K/mm3 (150-400); RDW Coefficient Variation 15.4 % (11.7-14.2); RDW Standard Deviation 56.9 fL (35.1-46.3); Red Blood Cell Count 3.11 M/mm3 (3.80-5.20); White Blood Cell Count 18.04 K/mm3 (4.00-11.30)
[2020-01-06] MEDS ORDERED: VITAMIN D3125 MCG PO (20:31)
[2020-01-06] MEDS ORDERED: FERSU300 PO (20:32)
[2020-01-06] MEDS ORDERED: ACYC400 PO (20:32)
[2020-01-06] MEDS ORDERED: METF500 PO (20:33)
[2020-01-06] MEDS ORDERED: PREG50 PO (20:34)
[2020-01-06] MEDS ORDERED: ALPR1 PO (20:35)
[2020-01-06] MEDS ORDERED: CALCIUM GUMMIE1 EACH PO (20:36)
[2020-01-06] MEDS ORDERED: FURO40 PO (20:37)
[2020-01-06] MEDS ORDERED: POTA10T PO (20:37)
[2020-01-06] MEDS ORDERED: Duoneb 2.5-0.5 M3 ML NEB (20:39)
[2020-01-06 20:50] LABS: Alanine Aminotransfer (ALT/SGP 136 U/L (12-78); Albumin, Blood 2.6 g/dL (3.4-5.0); Albumin/Globulin Ratio 0.6 (0.8-1.8); Alk Phos 87 U/L (50-136); Anion Gap 5 mmol/L (6-16); Aspartate Aminotrans (AST/SGOT 78 U/L (12-37); Bilirubin, Total 0.2 mg/dL (0.1-1.0); Blood Urea Nitrogen 19 mg/dL (8-24); Bun/Creatinine Ratio 21.1 (12.0-20.0); CO2, Blood 21 mmol/L (21-32); Calcium, Blood 7.9 mg/dL (8.5-10.1); Chloride, Blood 107 mmol/L (98-108); Globulin, Blood 4.1 g/dL (2.2-4.0); Glomerular Filtration Rate >60 (60-); Glucose, Blood 127 mg/dL (70-99); Potassium, Blood 4.5 mmol/L (3.5-5.5); Sodium, Blood 133 mmol/L (136-145); Total Protein, Blood 6.7 g/dL (6.4-8.2); Troponin I <0.015 ng/mL (0.000-0.040)
[2020-01-06 20:51] LABS: BAND PERCENT MAN 2 % (0-8); BASOPHILS PERCENT MAN 0 % (0-2); EOSINOPHILS ABSOLUTE MAN 0.18 K/mm3 (0.00-0.68); EOSINOPHILS PERCENT MAN 1 % (0-6); LYMPHOCYTES ABSOLUTE MAN 1.44 K/mm3 (0.84-5.20); LYMPHOCYTES PERCENT MAN 8 % (21-46); METAMYELOCYTE ABSOLUTE MAN 0.54 K/mm3 (0.00-0.00); METAMYELOCYTE PERCENT MAN 3 % (0-0); MONOCYTES ABSOLUTE MAN 1.44 K/mm3 (0.16-1.47); MONOCYTES PERCENT MAN 8 % (4-13); MYELOCYTE ABSOLUTE MAN 0.36 K/mm3 (0.00-0.00); MYELOCYTE PERCENT MAN 2 % (0-0); NEUTROPHILS ABSOLUTE MAN 14.07 K/mm3 (1.96-9.15); SEG NEUTROPHILS PERCENT MAN 76 % (41-73); TOTAL CELLS COUNTED 100
[2020-01-07 04:16] LABS: Hematocrit 28.6 % (33.0-51.0); Hemoglobin 8.8 g/dL (11.5-16.0); Mean Corpuscular HGB 30.3 pg (26.0-34.0); Mean Corpuscular HGB Conc 30.8 g/dL (31.5-36.5); Mean Corpuscular Volume 99 fL (80-100); Mean Platelet Volume 10.3 fL (9.1-12.4); NRBC ABSOLUTE 0.05 K/mm3 (0.00-0.02); NRBC Auto 0.4 /100 WBC (0.0-0.2); Platelet Count 237 K/mm3 (150-400); RDW Coefficient Variation 15.1 % (11.7-14.2); White Blood Cell Count 12.76 K/mm3 (4.00-11.30)
[2020-01-07 04:41] LABS: Anion Gap 6 mmol/L (6-16); Blood Urea Nitrogen 20 mg/dL (8-24); Bun/Creatinine Ratio 21.8 (12.0-20.0); CO2, Blood 22 mmol/L (21-32); Calcium, Blood 7.8 mg/dL (8.5-10.1); Chloride, Blood 106 mmol/L (98-108); Creatinine, Blood 0.92 mg/dL (0.40-1.00); Glomerular Filtration Rate >60 (60-); Glucose, Blood 85 mg/dL (70-99); Potassium, Blood 4.3 mmol/L (3.5-5.5); Sodium, Blood 134 mmol/L (136-145)
[2020-01-07 12:34] LABS: Percent Saturation 19.6 % (15.0-50.0)
[2020-01-07 13:30] LABS: Adenovirus Not Detected (NOT DETECT); Bordetella pertussis Not Detected (NOT DETECT); Chlamydophila pneumoniae Not Detected (NOT DETECT); Coronavirus 229E Not Detected (NOT DETECT); Coronavirus HKU1 Not Detected (NOT DETECT); Coronavirus NL63 Not Detected (NOT DETECT); Coronavirus OC43 Not Detected (NOT DETECT); Human Metapneumovirus Not Detected (NOT DETECT); Human Rhinovirus/Enterovirus Not Detected (NOT DETECT); Influenza A/2009-H1 Not Detected (NOT DETECT); Influenza A/H1 Not Detected (NOT DETECT); Influenza A/H3 Not Detected (NOT DETECT); Influenza B Not Detected (NOT DETECT); Mycoplasma pneumoniae Not Detected (NOT DETECT); Parainfluenza Virus 1 Not Detected (NOT DETECT); Parainfluenza Virus 2 Not Detected (NOT DETECT); Parainfluenza Virus 3 Not Detected (NOT DETECT); Parainfluenza Virus 4 Not Detected (NOT DETECT); Respiratory Syncytial Virus Not Detected (NOT DETECT)
[2020-01-08 04:09] LABS: BASOPHILS ABSOLUTE AUTO 0.04 K/mm3 (0.00-0.23); BASOPHILS PERCENT AUTO 0 % (0-2); EOSINOPHILS PERCENT AUTO 4 % (0-6); Hematocrit 28.2 % (33.0-51.0); Hemoglobin 9.2 g/dL (11.5-16.0); IMMATURE GRAN ABSOLUTE AUTO 0.49 K/mm3 (0.00-0.10); IMMATURE GRAN PERCENT AUTO 4 % (0-1); LYMPHOCYTES ABSOLUTE AUTO 2.23 K/mm3 (0.84-5.20); LYMPHOCYTES PERCENT AUTO 16 % (21-46); MONOCYTES ABSOLUTE AUTO 1.42 K/mm3 (0.16-1.47); MONOCYTES PERCENT AUTO 10 % (4-13); Mean Corpuscular HGB 31.5 pg (26.0-34.0); Mean Corpuscular HGB Conc 32.6 g/dL (31.5-36.5); Mean Corpuscular Volume 97 fL (80-100); Mean Platelet Volume 10.5 fL (9.1-12.4); NEUTROPHILS PERCENT AUTO 67 % (41-73); NRBC ABSOLUTE 0.07 K/mm3 (0.00-0.02); NRBC Auto 0.5 /100 WBC (0.0-0.2); Platelet Count 220 K/mm3 (150-400); RDW Coefficient Variation 14.8 % (11.7-14.2); RDW Standard Deviation 51.8 fL (35.1-46.3); Red Blood Cell Count 2.92 M/mm3 (3.80-5.20); White Blood Cell Count 14.18 K/mm3 (4.00-11.30)
[2020-01-08 04:38] LABS: Alanine Aminotransfer (ALT/SGP 83 U/L (12-78); Albumin, Blood 2.3 g/dL (3.4-5.0); Albumin/Globulin Ratio 0.7 (0.8-1.8); Alk Phos 75 U/L (50-136); Anion Gap 8 mmol/L (6-16); Aspartate Aminotrans (AST/SGOT 24 U/L (12-37); Bilirubin, Total 0.4 mg/dL (0.1-1.0); Blood Urea Nitrogen 28 mg/dL (8-24); Bun/Creatinine Ratio 30.9 (12.0-20.0); CO2, Blood 22 mmol/L (21-32); Calcium, Blood 7.6 mg/dL (8.5-10.1); Chloride, Blood 103 mmol/L (98-108); Creatinine, Blood 0.91 mg/dL (0.40-1.00); Globulin, Blood 3.4 g/dL (2.2-4.0); Glomerular Filtration Rate >60 (60-); Glucose, Blood 87 mg/dL (70-99); Potassium, Blood 3.9 mmol/L (3.5-5.5); Sodium, Blood 133 mmol/L (136-145); Total Protein, Blood 5.7 g/dL (6.4-8.2)
[2020-01-08] MEDS ORDERED: Florastor250 MG PO (10:42)
[2020-01-08] MEDS ORDERED: LEVO750 PO (10:42)
== END 2020-01-08 12:17 | disposition home or self-care (01) | DRG 291 ==
LOC: ER 19:57 → PCU 22:21
PROVIDERS: Emergency Medicine; Family Medicine; ADMIT Internal Medicine
PROC: 5A09357 Assistance with Respiratory Ventilation, Less than 24 Consecutive Hours, Continuous Positive Airway Pressure (ICD-10-PCS; principal; 2020-01-06)
PROC: 8E0ZXY6 Isolation (ICD-10-PCS; 2020-01-06)
DX: I11.0 Hypertensive heart disease with heart failure (principal); J96.21 Acute and chronic respiratory failure with hypoxia; Z68.1 Body mass index [BMI] 19.9 or less, adult; C90.00 Multiple myeloma not having achieved remission; E87.1 Hypo-osmolality and hyponatremia; J44.1 Chronic obstructive pulmonary disease with (acute) exacerbation; R65.10 Systemic inflammatory response syndrome (SIRS) of non-infectious origin without acute organ dysfunction; E46 Unspecified protein-calorie malnutrition; E11.9 Type 2 diabetes mellitus without complications; I50.33 Acute on chronic diastolic (congestive) heart failure; Z79.84 Long term (current) use of oral hypoglycemic drugs; F17.210 Nicotine dependence, cigarettes, uncomplicated; Z66 Do not resuscitate; D64.9 Anemia, unspecified
CPT/HCPCS: 0099U; 36415; 71045; 80048; 80053; 82607; 82728; 82746; 82947; 83540; 83550; 83605; 83880; 84145; 84484; 85025; 85027; 87040; 93005; 93010; 93308; 94640; 94660; 94762; 96374; 97110; 97161; 99285-25; A9270-GY; J1650; J1940; J1956; J7050; U0002

== ENCOUNTER 2020-06-01 21:13 | Emergency (ER) | payer OTHER ==
[~2020-06-01] VITALS: Ht 157.5 cm; Wt 35.8 kg
[~2020-06-01 21:13] MED LIST changes: +ACYC400 PO; +ALPR1 PO; +AMLO10 PO; +CALCIUM GUMMIE1 EACH PO; +Duoneb 2.5-0.5 M3 ML NEB; +FERSU300 PO; +FLUT1DIS5 INH; +FURO40 PO; +Florastor250 MG PO; +POTA10T PO; +PREG50 PO; +SUCR1 PO; +TIOT18 INH; +VITAMIN D3125 MCG PO
[2020-06-01 22:29] LABS: BASOPHILS ABSOLUTE AUTO 0.02 K/mm3 (0.00-0.23); BASOPHILS PERCENT AUTO 0 % (0-2); EOSINOPHILS ABSOLUTE AUTO 0.05 K/mm3 (0.00-0.68); EOSINOPHILS PERCENT AUTO 0 % (0-6); Hematocrit 30.1 % (33.0-51.0); Hemoglobin 10.1 g/dL (11.5-16.0); IMMATURE GRAN ABSOLUTE AUTO 0.11 K/mm3 (0.00-0.10); IMMATURE GRAN PERCENT AUTO 1 % (0-1); LYMPHOCYTES ABSOLUTE AUTO 0.89 K/mm3 (0.84-5.20); LYMPHOCYTES PERCENT AUTO 5 % (21-46); MONOCYTES ABSOLUTE AUTO 0.55 K/mm3 (0.16-1.47); MONOCYTES PERCENT AUTO 3 % (4-13); Mean Corpuscular HGB 31.8 pg (26.0-34.0); Mean Corpuscular HGB Conc 33.6 g/dL (31.5-36.5); Mean Corpuscular Volume 95 fL (80-100); Mean Platelet Volume 10.8 fL (9.1-12.4); NEUTROPHILS PERCENT AUTO 92 % (41-73); Platelet Count 167 K/mm3 (150-400); RDW Coefficient Variation 12.6 % (11.7-14.2); Red Blood Cell Count 3.18 M/mm3 (3.80-5.20); White Blood Cell Count 19.42 K/mm3 (4.00-11.30)
[2020-06-01 22:42] LABS: Albumin, Blood 2.8 g/dL (3.4-5.0); Albumin/Globulin Ratio 0.8 (0.8-1.8); Bilirubin, Total 0.3 mg/dL (0.1-1.0); Calcium, Blood 7.8 mg/dL (8.5-10.1); Creatinine, Blood 1.71 mg/dL (0.40-1.00); Globulin, Blood 3.6 g/dL (2.2-4.0); Total Protein, Blood 6.4 g/dL (6.4-8.2)
[2020-06-01] MEDS ORDERED: PREG50 (23:17)
[2020-06-01] MEDS ORDERED: PANT40 PO (23:18)
[2020-06-01] MEDS ORDERED: ONDA4 PO (23:18)
[2020-06-02 00:15] LABS: Source, Urine Clean Catch
[2020-06-02 00:20] LABS: Bilirubin, Urine Neg (Neg); Blood, Urine 2+ (Neg); Glucose Qualitative, Urine Neg (Neg); Ketones, Urine Neg (Neg); Leukocyte Esterase, Urine 2+ (Neg); Nitrite, Urine Pos (Neg); Protein, Urine 3+ (Neg); Specific Gravity, Urine 1.015 (1.003-1.022); Urobilinogen, Urine NORM (Normal)
[2020-06-02 00:24] LABS: Appearance, Urine Hazy (Clear); Color, Urine Yellow (P-Yellow)
[2020-06-02 00:29] LABS: Bacteria Many /hpf; Red Blood Cells, Urine Not Seen /hpf (0-2); Squamous Epithelial Cells Few /hpf (Few); White Blood Cells, Urine TNTC /hpf (0-5)
[2020-06-02] MEDS ORDERED: CEPH500 PO (00:52)
== END 2020-06-02 01:09 | disposition home or self-care (01) ==
LOC: ER 21:13
PROVIDERS: Student in an Organized Health Care Education/Training Program
DX: N39.0 Urinary tract infection, site not specified (principal); E86.0 Dehydration; N28.9 Disorder of kidney and ureter, unspecified; C90.00 Multiple myeloma not having achieved remission; J44.9 Chronic obstructive pulmonary disease, unspecified; E11.9 Type 2 diabetes mellitus without complications; I11.0 Hypertensive heart disease with heart failure; I50.9 Heart failure, unspecified; F17.210 Nicotine dependence, cigarettes, uncomplicated; Z88.8 Allergy status to other drugs, medicaments and biological substances; Z79.84 Long term (current) use of oral hypoglycemic drugs; Z79.899 Other long term (current) drug therapy
CPT/HCPCS: 80053; 81001; 85025; 87077; 87086; 87186; 93005; 93010; 96360; 99284-25; A9270; A9270-GY; J7030

== ENCOUNTER 2020-08-04 16:20 | Inpatient (IN) | payer OTHER ==
[~2020-08-04] VITALS: Ht 160 cm; Wt 46.0 kg
[~2020-08-04 16:20] MED LIST changes: +CEPH500 PO; +PANT40 PO; +PREG50
[2020-08-04] MEDS ORDERED: FURO40 PO (16:59)
[2020-08-04 17:33] LABS: Hematocrit 20.6 % (33.0-51.0); Hemoglobin 6.2 g/dL (11.5-16.0); Mean Corpuscular HGB 27.9 pg (26.0-34.0); Mean Corpuscular HGB Conc 30.1 g/dL (31.5-36.5); Mean Corpuscular Volume 93 fL (80-100); NRBC ABSOLUTE 0.11 K/mm3 (0.00-0.02); NRBC Auto 0.6 /100 WBC (0.0-0.2); Platelet Count 186 K/mm3 (150-400); RDW Coefficient Variation 18.9 % (11.7-14.2); Red Blood Cell Count 2.22 M/mm3 (3.80-5.20)
[2020-08-04 17:50] LABS: Troponin I 0.032 ng/mL (0.000-0.040)
[2020-08-04 17:52] LABS: Bun/Creatinine Ratio 14.3 (12.0-20.0); Calcium, Blood 7.2 mg/dL (8.5-10.1); Creatinine, Blood 5.51 mg/dL (0.40-1.00); Potassium, Blood 4.5 mmol/L (3.5-5.5)
[2020-08-04 18:13] LABS: BAND PERCENT MAN 4 % (0-8); BASOPHILS PERCENT MAN 0 % (0-2); EOSINOPHILS PERCENT MAN 0 % (0-6); LYMPHOCYTES % ATYPICAL MANUAL 1 % (0-0); LYMPHOCYTES ABSOLUTE MAN 1.49 K/mm3 (0.84-5.20); LYMPHOCYTES PERCENT MAN 7 % (21-46); METAMYELOCYTE ABSOLUTE MAN 0.56 K/mm3 (0.00-0.00); METAMYELOCYTE PERCENT MAN 3 % (0-0); MONOCYTES ABSOLUTE MAN 0.18 K/mm3 (0.16-1.47); MONOCYTES PERCENT MAN 1 % (4-13); MYELOCYTE ABSOLUTE MAN 0.18 K/mm3 (0.00-0.00); MYELOCYTE PERCENT MAN 1 % (0-0); NEUTROPHILS ABSOLUTE MAN 16.26 K/mm3 (1.96-9.15); SEG NEUTROPHILS PERCENT MAN 83 % (41-73); TOTAL CELLS COUNTED 100
[2020-08-04 18:39] LABS: Base Excess Venous -25.2 mmol/L; Bicarbonate Venous 7.3 mmol/L (24.0-30.0); PCO2 Venous 18.9 mmHg (38-42); PO2 Venous 182 mmHg (38-42); pH Blood Venous 7.05 (7.34-7.37)
[2020-08-04 18:57] LABS: Creatine Kinase MB 15.5 ng/mL (0.0-3.6); Creatine Kinase MB Index 9.9 (0.0-4.0)
[2020-08-04 19:02] LABS: Magnesium, Blood 1.6 mg/dL (1.6-2.4)
[2020-08-04 19:08] LABS: International Normalized Ratio 1.16; Prothrombin Time Results 12.3 Sec (9.7-11.5)
[2020-08-04 19:22] LABS: Phosphorus, Blood 8.6 mg/dL (2.5-4.9)
[2020-08-04] MEDS ORDERED: OXYB5 PO (20:12)
[2020-08-04] MEDS ORDERED: IPRAT-ALBUT 0.5-3 ML INH (20:13)
[2020-08-04 21:05] LABS: Source, Urine Catheter
[2020-08-04 21:13] LABS: Appearance, Urine Cloudy (Clear); Bilirubin, Urine Neg (Neg); Blood, Urine 5+ (Neg); Color, Urine Yellow (P-Yellow); Glucose Qualitative, Urine Neg (Neg); Ketones, Urine Neg (Neg); Leukocyte Esterase, Urine 1+ (Neg); Nitrite, Urine Neg (Neg); Protein, Urine 3+ (Neg); Specific Gravity, Urine 1.015 (1.003-1.022); Urobilinogen, Urine NORM (Normal)
[2020-08-04 21:30] LABS: Amorphous Heavy (0-Heavy); Bacteria Few /hpf; Mucus Light (0-Heavy); Red Blood Cells, Urine TNTC /hpf (0-2); Renal Epithelial Rare /hpf (0-Rare); Squamous Epithelial Cells Rare /hpf (Few); Transitional Epithelial Cells Rare /hpf (0-Rare)
[2020-08-04 23:34] LABS: Albumin, Blood 2.9 g/dL (3.4-5.0); Albumin/Globulin Ratio 0.7 (0.8-1.8); Bilirubin, Total 0.3 mg/dL (0.1-1.0); Bun/Creatinine Ratio 14.9 (12.0-20.0); Creatinine, Blood 5.31 mg/dL (0.40-1.00); Globulin, Blood 4.3 g/dL (2.2-4.0); Potassium, Blood 3.8 mmol/L (3.5-5.5); Total Protein, Blood 7.2 g/dL (6.4-8.2)
[2020-08-04 23:36] LABS: Creatine Kinase MB 13.4 ng/mL (0.0-3.6); Creatine Kinase MB Index 9.9 (0.0-4.0)
[2020-08-05 05:25] LABS: Hematocrit 22.2 % (33.0-51.0); Hemoglobin 7.1 g/dL (11.5-16.0)
[2020-08-05] MEDS ORDERED: Keflex250 MG PO (06:10)
[2020-08-05 06:16] LABS: Alanine Aminotransfer (ALT/SGP 23 U/L (12-78); Albumin, Blood 2.9 g/dL (3.4-5.0); Albumin/Globulin Ratio 0.7 (0.8-1.8); Alk Phos 99 U/L (50-136); Anion Gap 15 mmol/L (6-16); Aspartate Aminotrans (AST/SGOT 32 U/L (12-37); Bilirubin, Direct 0.1 mg/dL (0.0-0.3); Bilirubin, Indirect 0.2 mg/dL (0.1-0.7); Bilirubin, Total 0.3 mg/dL (0.1-1.0); Blood Urea Nitrogen 77 mg/dL (8-24); Bun/Creatinine Ratio 14.8 (12.0-20.0); CO2, Blood 12 mmol/L (21-32); CPK Creatine Kinase 123 U/L (26-193); Chloride, Blood 116 mmol/L (98-108); Globulin, Blood 4.1 g/dL (2.2-4.0); Glomerular Filtration Rate 9 (60-); Glucose, Blood 93 mg/dL (70-99); Magnesium, Blood 1.6 mg/dL (1.6-2.4); Potassium, Blood 3.3 mmol/L (3.5-5.5); Sodium, Blood 143 mmol/L (136-145); Uric Acid, Blood 7.9 mg/dL (2.6-6.0)
[2020-08-05 06:25] LABS: Phosphorus, Blood 8.3 mg/dL (2.5-4.9)
--- NOTE | 2020-08-05 07:32 | NUR ---
ADMIT NOTE/SHIFT SUMMARY PATIENT ADMITTED EARLIER THIS SHIFT FROM THE ER. PATIENT SLID OVER VIA SLIDER SHEET. PATIENT APPEARED TO BE ABLE TO MOVE SELF ABOUT IN BED. PATIENT PLEASENT AND COOPERATIVE THROUGHOUT THE NIGHT. PATIENT VERY SOFT SPOKEN. PATIENT SETTLED IN AND ORIENTED TO THE ROOM, UNIT, AND CALL LIGHT. PATIENT APPEARED TO SLEEP WELL THROUGHOUT THE REST OF THE NIGHT. IV FLUIDS RUNNING PER ORDERS. VITAL SIGNS CHARTED. REPORT GIVEN TO ONCOMING RN.
--- NOTE | 2020-08-05 18:46 | NUR ---
SHIFT NOTE PT HAS BEEN RESTING WELL IN BED T/O THE DAY. PT IS SLEEPY, BUT DOES ANSWER QUESTIONS APPROPRIATELY. JAMES DRAINING TO GRAVITY. NA BICARB INFUSING AT 75ML/HR. PT DNEIES PAIN. REPOSISITIONED OFTEN FOR COMFORT. 24 HOUR URINE WILL COMPLETE AT 2350 TONOC.
[2020-08-06 04:23] LABS: Hemoglobin 6.9 g/dL (11.5-16.0)
[2020-08-06 04:40] LABS: Albumin, Blood 2.4 g/dL (3.4-5.0); Anion Gap 13 mmol/L (6-16); Blood Urea Nitrogen 69 mg/dL (8-24); Bun/Creatinine Ratio 14.1 (12.0-20.0); CO2, Blood 15 mmol/L (21-32); Calcium, Blood 6.2 mg/dL (8.5-10.1); Chloride, Blood 111 mmol/L (98-108); Creatinine, Blood 4.91 mg/dL (0.40-1.00); Glomerular Filtration Rate 9 (60-); Glucose, Blood 91 mg/dL (70-99); Magnesium, Blood 1.4 mg/dL (1.6-2.4); Phosphorus, Blood 6.4 mg/dL (2.5-4.9); Potassium, Blood 2.5 mmol/L (3.5-5.5); Sodium, Blood 139 mmol/L (136-145)
--- NOTE | 2020-08-06 06:40 | NUR ---
SHIFT SUMMARY PATIENT PLEASENT AND COOPERATIVE THROUGHOUT THE NIGHT. PATIENT APPEARED TO BE ABLE TO MOVE SELF ABOUT IN BED AND WAS ASSISTED NEEDED. PATIENT VERY SOFT SPOKEN. IV FLUIDS RUNNING PER ORDERS. DR BLANCO NOTIFIED OF PATIENT'S POTASSIUM LEVEL THIS AM. ORDERS RECEIVED. PATIENT CURRENTLY RESTING IN BED AND DENIES ANY NEEDS THIS MORNING. WILL CONTINUE TO MONITOR PATIENT AND REPORT TO ONCOMING RN.
--- NOTE | 2020-08-06 07:35 | NUR ---
ASSUMED CARE: PT RESTING QUIETLY AT THIS TIME. 1L NC IN PLACE. CALL FROM DR BACK TO DC POTASSIUM HE ORDERED DUE TO POTASSIUM ALREADY BEING ORDERED BY HOSPITALIST AND TO CONTINUE HIS ORDER FOR MAGNESIUM WITH STAT POTASSIUM LAB TO BE DONE 1 HOUR AFTER REPLETE IS COMPLETED. PT HAS NO ACUTE NEEDS OR CONCERNS AT THIS TIME.
--- NOTE | 2020-08-06 11:21 | NUR ---
CONTACTED DR MATA TO TOUCH BASE ON PT. SHE STATES THAT PLAN IS ACCORDING TO DR BACK. DRS ARE AWARE OF PT'S H AND H BUT IS CONSISTENT WITH PT'S HISTORY LAST FEW DAYS. ELECTROLYTES ARE BEING REPLETED. PLAN FOR DIALYSIS IS PER DR BACK AND DR BACK IS WATCHING PT'S FUNCTION FOR THE NEXT FEW DAYS. FAMILY CALLED AND SAID THEY WILL BE IN TO SEE PT LATER AND DR MATA AWARE AND WANTS TO BE NOTIFIED WHEN THEY GET HERE. MADE DR MATA AWARE OF POLST AND CODE STATUS INCONSISTENCY AND DR MATA STATES SHE WILL REVIEW.
--- NOTE | 2020-08-06 18:05 | NUR ---
SHIFT SUMMARY: PT HAS BEEN RECIEVING K RIDERS AND MAG RIDERS THROUGHOUT SHIFT. RESTING IN BED, TOLD PHYSICAL THERAPIST SHE WAS DIZZY WITH ACTIVITY. HAS BEEN HELPFUL WITH BE MOBILITY BUT TIRED. DR MATA AWARE OF DIARRHEA STOOL AND ORDERED LOMOTIL, DOES NOT WISH FOR GI PANEL AT THIS TIME. FURTHER PLANS FOR PERMACATH PER DR BACK.
[2020-08-07 04:54] LABS: Hematocrit 22.3 % (33.0-51.0); Hemoglobin 7.4 g/dL (11.5-16.0)
[2020-08-07 05:21] LABS: Albumin, Blood 2.3 g/dL (3.4-5.0); Anion Gap 12 mmol/L (6-16); Blood Urea Nitrogen 60 mg/dL (8-24); Bun/Creatinine Ratio 13.2 (12.0-20.0); CO2, Blood 18 mmol/L (21-32); Calcium, Blood 6.1 mg/dL (8.5-10.1); Chloride, Blood 106 mmol/L (98-108); Creatinine, Blood 4.53 mg/dL (0.40-1.00); Glomerular Filtration Rate 10 (60-); Glucose, Blood 121 mg/dL (70-99); Magnesium, Blood 1.6 mg/dL (1.6-2.4); Potassium, Blood 3.2 mmol/L (3.5-5.5); Sodium, Blood 136 mmol/L (136-145)
--- NOTE | 2020-08-07 07:44 | NUR ---
SHIFT SUMMARY PT STATED BEING COMFORTABLE T/O THE NIGHT, STATED HAVING SOME NAUSEA IN AM. VITALS STABLE WITH BP 120-140 SYSTOLIC, HR 60-70'S, AND O2 SATS IN THE 90'S ON 1LPM NC. PT WAS PLEASENT AND COOPERATIVE WITH CARE, ABLE TO TURN AND SELF POSITION IN BED. PT HAD SEVERAL BOWEL MOVEMENTS, AROUND 0200 PT HAD A BM AND WHEN CLEANING THE PT THIS NURSE NOTICED WHAT APPEARED TO BE A PROLAPSED RECTUM PROTRUDING ABOUT 3CM, AFTER THE NEXT BM THE PROLAPSE WAS NO LONGER VISABLE, THIS PATTERN CONTINUED FOR THE NEXT TWO BM'S, CURRENTLY NOT VISABLE. PT AWAKE WATCHING TV, WILL CONTINUE TO MONITOR UNTIL SHIFT CHANGE.
--- NOTE | 2020-08-07 08:00 | NUR ---
pt laying in bed, somewhat confused, alert, asking to be changed, follows commands, lungs are course t/o, with exp wheezing t/o, currently on 2 liters 02 via n/c, no cough noted, hrr, tele in place running sr per monitor, see strip, no edema noted, iv sites are clear and patent, btx4, abd flat soft nontender, incont of urine, bal cath draining clear yellow urine, skin frail, scattered bruisings, rectal prolaps noted by night rnkeli, general weakness, joce, call light in reach.
--- NOTE | 2020-08-07 18:27 | NUR ---
PT DAUGHTER IN LAW IN TO SEE HER, DR. BABIN PA IN TO SEE HER WELL, SPOKE TO HER ABOUT A PROCEDURE IN THE AM TO PLACE DRAIN TUBE IN KIDNEY. WILL BE NPO AFTER MIDNIGHT, CALL LIGHT IN REACH.
[2020-08-08 04:28] LABS: Hematocrit 22.7 % (33.0-51.0); Hemoglobin 7.4 g/dL (11.5-16.0)
[2020-08-08 04:50] LABS: Albumin, Blood 2.3 g/dL (3.4-5.0); Anion Gap 10 mmol/L (6-16); Blood Urea Nitrogen 55 mg/dL (8-24); Bun/Creatinine Ratio 12.3 (12.0-20.0); CO2, Blood 23 mmol/L (21-32); Calcium, Blood 6.2 mg/dL (8.5-10.1); Chloride, Blood 104 mmol/L (98-108); Creatinine, Blood 4.46 mg/dL (0.40-1.00); Glomerular Filtration Rate 10 (60-); Glucose, Blood 98 mg/dL (70-99); Magnesium, Blood 1.6 mg/dL (1.6-2.4); Phosphorus, Blood 4.8 mg/dL (2.5-4.9); Potassium, Blood 3.3 mmol/L (3.5-5.5); Sodium, Blood 137 mmol/L (136-145)
--- NOTE | 2020-08-08 06:51 | NUR ---
SHIFT SUMMARY PT WAS PLEASENT AND COOPERATIVE WITH CARE, WITH STABLE VITALS. BP 120-130'S SYSTOLIC, HR IN THE 60'S. PT WAS ON 1LPM VIA NC WITH O2 SATS IN THE 90'S, PT DENIED ANY SOB BUT DID HAVE AN OCCASIONAL NON PRODUCTIVE COUGH. PT STATED HAVING RIGHT FLANK PAIN AT 4 OF 10 THAT SHE STATED SHE "COULD LIVE WITH". PT HAD SEVERAL LOOSE STOOLS T/O THE NIGHT AND STATED SHE WANTED IMODIUM. ORDERED IMODIUM WAS GIVEN. PT HAS BEEN NPO SINCE MIDNIGHT, WILL CONTINUE TO MONITOR UNTIL SHIFT CHANGE.
[2020-08-08 13:13] LABS: ANA DIRECT Negative (Negative); ANTIMYELOPEROXIDASE (MPO) ABS <9.0 U/mL (0.0-9.0); ANTIPROTEINASE 3 (PR-3) ABS <3.5 U/mL (0.0-3.5); ATYPICAL PANCA <1:20 titer (Neg:<1:20); CYTOPLASMIC (C-ANCA) <1:20 titer (Neg:<1:20); PERINUCLEAR (P-ANCA) <1:20 titer (Neg:<1:20)
--- NOTE | 2020-08-08 13:25 | NUR ---
PT WAS TAKEN TO PHOTOFINISHING LABORATORY WORKER AT AROUND 1200, PT CAME BACK IN THE ROOM AFTER 45 MINS, PROCEDURE WAS UNSUCCESSFUL PER ABBE RN WILL RE-ATTEMPT AGAIN AT 2;30P FOR NEPHROSTOMY PLACEMENT. PT'S VITALS STABLE. ACCESS SITE ON RIGHT SIDE FLANK DRESSING CDI. PT WITH NO COMPLAINS AT THIS TIME, PT REMAINS NPO, PT CURRENTLY RESTING CALL LIGHTS IN REACH, WILL MONITOR
[2020-08-08 14:07] LABS: ALBUMIN 3.1 g/dL (2.9-4.4); ALPHA-1-GLOBULIN 0.2 g/dL (0.0-0.4); ALPHA-2-GLOBULIN 0.7 g/dL (0.4-1.0); BETA GLOBULIN 0.9 g/dL (0.7-1.3); GAMMA GLOBULIN 1.6 g/dL (0.4-1.8); GLOBULIN, TOTAL 3.4 g/dL (2.2-3.9); IMMUNOGLOBULIN A, QN, SERUM 20 mg/dL (64-422); IMMUNOGLOBULIN G, QN, SERUM 1848 mg/dL (586-1602); IMMUNOGLOBULIN M, QN, SERUM 7 mg/dL (26-217); M-SPIKE 1.5 g/dL (Not Observed); PROTEIN, TOTAL, SERUM 6.5 g/dL (6.0-8.5)
--- NOTE | 2020-08-08 17:37 | NUR ---
PT SUMMARY: SECOND ATTEMPT OF NEPHROSTOMY PLACEMENT WAS SUCCESSFUL, RIGHT NEPHROSTOMY TUBE IN PLACE WITH DRESSING CDI, DRAINING PATENT VIA GRAVITY, IRRIGATED WITH 10CC NS X1, SEROUSANGUINEOUS DRAINAGE. PT C/O MILD PAIN POST PROCEDURE PT WAS REPOSTIONED IN BED AND FELT MUCH BETTER. VITALS HRR SINUS PAC'S 70-80'S, BP SYSTOLIC 130-150'S, SATS ABOVE 90% ON 2L OF O2, AFEBRILE. PT CURRENTLY EATING DINNER AT THIS TIME NABICARB AT 75MLS/HR RUNNING. PT ABLE TO MAKE NEEDS KNOWN CALL LIGHTS IN REACH WILL MONITOR UNTIL END OF SHIFT
--- NOTE | 2020-08-08 20:45 | NUR ---
IRRIGATED NEPHROSTOMY IRRIGATED NEPRHOSTOMY TUBING WITH 10ML. PT TOLERATED WELL.
[2020-08-09 03:48] LABS: Hematocrit 23.9 % (33.0-51.0); Hemoglobin 7.7 g/dL (11.5-16.0)
[2020-08-09 04:04] LABS: Albumin, Blood 2.4 g/dL (3.4-5.0); Anion Gap 8 mmol/L (6-16); Blood Urea Nitrogen 52 mg/dL (8-24); Bun/Creatinine Ratio 11.9 (12.0-20.0); CO2, Blood 26 mmol/L (21-32); Calcium, Blood 6.7 mg/dL (8.5-10.1); Chloride, Blood 102 mmol/L (98-108); Creatinine, Blood 4.37 mg/dL (0.40-1.00); Glomerular Filtration Rate 10 (60-); Glucose, Blood 125 mg/dL (70-99); Magnesium, Blood 1.4 mg/dL (1.6-2.4); Phosphorus, Blood 5.4 mg/dL (2.5-4.9); Potassium, Blood 3.6 mmol/L (3.5-5.5); Sodium, Blood 136 mmol/L (136-145)
--- NOTE | 2020-08-09 06:43 | NUR ---
SHIFT SUMMARY PT SLEPT T/O SHIFT. PT NAUSEATED. MEDICATIONS GIVEN PER EMAR. NO IMPROVEMENT. PHYSICIAN NOTIFIED. MEDICATIONS ORDERED AND GIVEN PER PHYSICIAN/EMAR. PT ALERT AND ORIENTED. BP STABLE. HR STABLE. PT REPORTS NO CP OR PRESSURE. PT'S IV LEAKING. 3 ATTEMPS TO INSERT NEW IV. CHARGE NURSE NOTIFIED AND REQUESTING POWERGLIDE TO BE INSERTED. PHYSICIAN NOTIFIED OF MAGNESIUM OF 1.4. PHYSICIAN ORDERED 1 GM OF MAG/SULFATE. NEPHROSTOMY DRAIN SITE WNL. DRESSING C/D/I. DRAINAGE COLOR CHANGED FROM SEROUS TO CLEAR/YELLOW T/O SHIFT. WILL CONTINUE TO MONITOR UNTIL REPORT GIVEN TO YUE MUSE.
[2020-08-09 10:11] LABS: ANTIGLOMERULAR BM AB 2 units (0-20)
--- NOTE | 2020-08-09 17:06 | NUR ---
PT STATUS CHANGED TO MEDICAL WITH NO TELE, PT TRANSFERRED TO ROOM 302, REPORT GIVEN TO HETAL MUSE. VITALS HAS BEEN STABLE FOR THE SHIFT, RIGHT NEPHROSTOMY DRAINING PATENT VIA GRAVITY DRAINED 200MLS OUT FOR THE SHIFT IRRIGATED X1 WITH 10CC NS, DRAINAGE SLIGHT PINK IN COLOR. PT PLAN TO DISCHARGE IN A DAY OR TWO PT TO CONTINUE ON PT/OT. PT WAS UP IN THE CHAIR TODAY FOR LUNCH, 1PA FOR TRANSFERS. MILD PAIN ON RIGHT FLANK RESOLVED WITH REPOSITIONING, PT CAN MOVE INDEPENDENTLY IN BED. NS RUNNING AT 50MLS/HR, POWERGLIDE PLACEDIN TAL. PT ACCOMPANIED VIA WHEELCHAIR BY PCT FOR TRANSFER.
--- NOTE | 2020-08-09 18:20 | NUR ---
RECEIVED PT FROM U 2 AND REPORT FROM AMADEO. PT IV SITE WNL AND RUNNING, AMBULATES WITH MAX ASSIST, RESTING IN BED AND COOPERATIVE WITH CARE.
--- NOTE | 2020-08-10 04:43 | NUR ---
LYFT DRIVER SUMMARY ALERT AND ORIENTED 2-3. APPEARED TO SLEEP T/O SHIFT. JAMES PATENT TO GRAVITY DRAIN, NEPHROSTOMY TUBE PRESENT TO R. FLANK PT REFUSES FLUSH THIS SHIFT. DENIES PAIN AND SOB. NO ACUTE CHANGES AT THIS TIME. BED IN LOWEST POSITION WITH CALL LIGHT IN REACH. WILL CONTINUE TO MONITOR AND REPORT TO ONCOMING RN.
[2020-08-10 09:06] LABS: Albumin, Blood 2.2 g/dL (3.4-5.0); Anion Gap 8 mmol/L (6-16); Blood Urea Nitrogen 45 mg/dL (8-24); Bun/Creatinine Ratio 10.6 (12.0-20.0); CO2, Blood 25 mmol/L (21-32); Calcium, Blood 6.8 mg/dL (8.5-10.1); Chloride, Blood 104 mmol/L (98-108); Creatinine, Blood 4.26 mg/dL (0.40-1.00); Glomerular Filtration Rate 11 (60-); Glucose, Blood 83 mg/dL (70-99); Magnesium, Blood 1.7 mg/dL (1.6-2.4); Phosphorus, Blood 6.2 mg/dL (2.5-4.9); Potassium, Blood 3.7 mmol/L (3.5-5.5); Sodium, Blood 137 mmol/L (136-145)
[2020-08-10 13:12] LABS: M-SPIKE, % Comment: % (Not Observed); PROTEIN,TOTAL,URINE 87.6 mg/dL (Not Estab.)
--- NOTE | 2020-08-10 19:11 | NUR ---
PT ALERT AND ORIENTED X4, MAKES NO COMPLAINTS OF PAIN OR DISCOMFORT, ATE ALL THREE MEALS, WAS MED COMPLIANT, TOLERATED 10ML NEPHROSTOMY TUBE FLUSH, TUBE AND CATH WNL. PT WAITING FOR DC TO [facility]. STAFF WILL CONT. TO MONITOR FOR CHANGES.
[2020-08-11 04:30] LABS: Hematocrit 22.7 % (33.0-51.0); Hemoglobin 7.2 g/dL (11.5-16.0)
--- NOTE | 2020-08-11 04:32 | NUR ---
EXCELLENCE CONSULTANT SUMMARY ALERT AND ORIENTED. APPEARED TO SLEEP T/O NIGHT. DENIES PAIN OR SOB. CURRENTLY ON 2L VIA NC. NEPHROSTOMY FLUSHED THIS SHIFT. JAMES TO GRAVITY DRAIN. NO ACUTE CHANGES AT THIS TIME. BED IN LOWEST POSITION WITH CALL LIGHT IN REACH.
[2020-08-11 04:57] LABS: Albumin, Blood 2.1 g/dL (3.4-5.0); Anion Gap 9 mmol/L (6-16); Blood Urea Nitrogen 43 mg/dL (8-24); Bun/Creatinine Ratio 10.4 (12.0-20.0); CO2, Blood 22 mmol/L (21-32); Calcium, Blood 6.9 mg/dL (8.5-10.1); Chloride, Blood 106 mmol/L (98-108); Creatinine, Blood 4.13 mg/dL (0.40-1.00); Glomerular Filtration Rate 11 (60-); Glucose, Blood 77 mg/dL (70-99); Magnesium, Blood 1.6 mg/dL (1.6-2.4); Phosphorus, Blood 6.2 mg/dL (2.5-4.9); Potassium, Blood 3.9 mmol/L (3.5-5.5); Sodium, Blood 137 mmol/L (136-145)
--- NOTE | 2020-08-11 14:50 | NUR ---
DISCHARGE REPORT CALLED TO AYANNA MUSE AT [facility]. QUESTIONS/CONCERNS ANSWERED. W/C [facility]ER ARRIVED TO TRANSPORT PT.
== END 2020-08-11 15:04 | DRG 698 ==
LOC: ER 16:20 → PCU 16:26 → MEDS 08-09 16:45
PROVIDERS: Emergency Medicine; Internal Medicine Nephrology; Physician Assistant; ADMIT Internal Medicine
PROC: 30233N1 Transfusion of Nonautologous Red Blood Cells into Peripheral Vein, Percutaneous Approach (ICD-10-PCS; 2020-08-04)
PROC: 0T903ZZ Drainage of Right Kidney, Percutaneous Approach (ICD-10-PCS; principal; 2020-08-08)
DX: T83.518A Infection and inflammatory reaction due to other urinary catheter, initial encounter (principal); J96.01 Acute respiratory failure with hypoxia; I50.33 Acute on chronic diastolic (congestive) heart failure; R65.21 Severe sepsis with septic shock; A41.51 Sepsis due to Escherichia coli [E. coli]; N17.9 Acute kidney failure, unspecified; I13.0 Hypertensive heart and chronic kidney disease with heart failure and stage 1 through stage 4 chronic kidney disease, or unspecified chronic kidney disease; E87.2 Acidosis; E46 Unspecified protein-calorie malnutrition; N13.6 Pyonephrosis; C90.00 Multiple myeloma not having achieved remission; N25.81 Secondary hyperparathyroidism of renal origin; Z68.1 Body mass index [BMI] 19.9 or less, adult; J44.9 Chronic obstructive pulmonary disease, unspecified; E11.22 Type 2 diabetes mellitus with diabetic chronic kidney disease; N18.9 Chronic kidney disease, unspecified; N13.9 Obstructive and reflux uropathy, unspecified; D63.1 Anemia in chronic kidney disease; E83.39 Other disorders of phosphorus metabolism; E83.42 Hypomagnesemia; F17.210 Nicotine dependence, cigarettes, uncomplicated
CPT/HCPCS: 36415; 36430; 50432; 51702; 71045; 73502; 74150; 76770; 80048; 80053; 80069; 81001; 81050; 82248; 82550; 82553; 82784; 82803; 83516; 83520; 83605; 83735; 84100; 84132; 84156; 84165; 84166; 84484; 84550; 85014; 85018; 85025; 85610; 85730; 86038; 86256; 86334; 86335; 86850; 86900; 86901; 86923; 87040; 87077; 87086; 87186; 93005; 93010; 94640; 94760; 96365; 96366; 96367; 96375; 96376; 97110; 97116; 97162; 97530; 99152; 99153; 99285-25; A9270; A9270-GY; C1729; C1751; C1769; C1894; J0456; J0696; J0881; J2250; J2405; J3010; J3475; J3480; J7030; J7040; J7050; J7070; P9016; Q0163; Q9967; U0004

== ENCOUNTER 2020-11-07 17:03 | Emergency (ER) | payer OTHER ==
[~2020-11-07] VITALS: Ht 160 cm; Wt 52.2 kg
[~2020-11-07 17:03] MED LIST changes: -CALCIUM GUMMIE1 EACH PO; +CALCIUM PHOSPHATE PO; +Diflucan100 MG PO; +IPRAT-ALBUT 0.5-3 ML INH; +Keflex250 MG PO; +MEGE40T PO; +OXYB5 PO; +SODBIC650 PO; -VITAMIN D3125 MCG PO; +VITAMIN D5000 UNIT PO
[2020-11-07 17:39] LABS: BASOPHILS ABSOLUTE AUTO 0.06 K/mm3 (0.00-0.23); BASOPHILS PERCENT AUTO 0 % (0-2); EOSINOPHILS ABSOLUTE AUTO 0.08 K/mm3 (0.00-0.68); EOSINOPHILS PERCENT AUTO 0 % (0-6); Hemoglobin 10.5 g/dL (11.5-16.0); IMMATURE GRAN ABSOLUTE AUTO 0.15 K/mm3 (0.00-0.10); IMMATURE GRAN PERCENT AUTO 1 % (0-1); LYMPHOCYTES ABSOLUTE AUTO 1.62 K/mm3 (0.84-5.20); LYMPHOCYTES PERCENT AUTO 9 % (21-46); MONOCYTES PERCENT AUTO 5 % (4-13); Mean Corpuscular HGB 29.6 pg (26.0-34.0); Mean Corpuscular HGB Conc 33.9 g/dL (31.5-36.5); Mean Corpuscular Volume 87 fL (80-100); Mean Platelet Volume 9.3 fL (9.1-12.4); NEUTROPHILS ABSOLUTE AUTO 16.01 K/mm3 (1.96-9.15); NEUTROPHILS PERCENT AUTO 85 % (41-73); Platelet Count 309 K/mm3 (150-400); RDW Coefficient Variation 17.6 % (11.7-14.2); RDW Standard Deviation 56.8 fL (35.1-46.3); Red Blood Cell Count 3.55 M/mm3 (3.80-5.20); White Blood Cell Count 18.92 K/mm3 (4.00-11.30)
[2020-11-07 17:59] LABS: Albumin, Blood 2.7 g/dL (3.4-5.0); Albumin/Globulin Ratio 0.6 (0.8-1.8); Bilirubin, Total 0.4 mg/dL (0.1-1.0); Bun/Creatinine Ratio 10.9 (12.0-20.0); Calcium, Blood 8.1 mg/dL (8.5-10.1); Creatinine, Blood 1.29 mg/dL (0.40-1.00); Globulin, Blood 4.9 g/dL (2.2-4.0); Potassium, Blood 3.7 mmol/L (3.5-5.5); Total Protein, Blood 7.6 g/dL (6.4-8.2)
[2020-11-07 19:27] LABS: Source, Urine Clean Catch
[2020-11-07 19:29] LABS: Appearance, Urine Hazy (Clear); Bilirubin, Urine Neg (Neg); Blood, Urine 5+ (Neg); Color, Urine Yellow (P-Yellow); Glucose Qualitative, Urine Neg (Neg); Ketones, Urine Neg (Neg); Leukocyte Esterase, Urine 3+ (Neg); Nitrite, Urine Neg (Neg); Protein, Urine 3+ (Neg); Specific Gravity, Urine 1.015 (1.003-1.022); Urobilinogen, Urine NORM (Normal)
[2020-11-07 19:34] LABS: Bacteria Mod /hpf; Red Blood Cells, Urine TNTC /hpf (0-2); Squamous Epithelial Cells Few /hpf (Few); White Blood Cells, Urine TNTC /hpf (0-5)
[2020-11-07] MEDS ORDERED: CEPH500 PO (20:56)
[2020-11-07] MEDS ORDERED: ONDA4ODT MM (20:56)
[2021-03-23] MEDS ORDERED: METO25ER PO (15:32)
[2021-03-23] MEDS ORDERED: Sanctura20 MG PO (15:33)
[2021-03-23] MEDS ORDERED: CALCIUM ACETAT667 M1 PO (15:35)
[2021-03-23] MEDS ORDERED: BUME2 PO (15:40)
[2021-03-23] MEDS ORDERED: IPRAT-ALBUT 0.5-3 ML INH (15:43)
[2021-03-23] MEDS ORDERED: CEFP200 PO (20:52)
[2021-03-23] MEDS ORDERED: AZIT250 PO (20:53)
[2021-03-24] MEDS ORDERED: Prednisone10 MG PO (14:30)
[2021-03-24] MEDS ORDERED: ENTRESTO 24 MG1 EACH PO (14:31)
[2021-03-24] MEDS ORDERED: METO50 PO (14:32)
== END 2020-11-07 21:15 | disposition home or self-care (01) ==
LOC: ER 17:03
PROVIDERS: Physician Assistant
DX: N39.0 Urinary tract infection, site not specified (principal); K52.9 Noninfective gastroenteritis and colitis, unspecified; I13.0 Hypertensive heart and chronic kidney disease with heart failure and stage 1 through stage 4 chronic kidney disease, or unspecified chronic kidney disease; N18.6 End stage renal disease; I50.9 Heart failure, unspecified; J44.9 Chronic obstructive pulmonary disease, unspecified; Z88.8 Allergy status to other drugs, medicaments and biological substances; Z79.899 Other long term (current) drug therapy
CPT/HCPCS: 74176; 80053; 81001; 83690; 85025; 87086; 93005; 93010; 96365; 96375; 99284-25; J0696; J2270; J2405

== ENCOUNTER 2020-11-14 14:43 | Day surgery (SDC) | payer OTHER ==
[~2020-11-14] VITALS: Ht 160 cm; Wt 40.9 kg
[~2020-11-14 14:43] MED LIST changes: +ONDA4ODT MM
--- NOTE | 2020-11-14 16:00 | NUR ---
PT MEDICATED WITH FENTANYL 50 MCG IVP FOR 8/10 RIGHT FLANK PAIN. REPORTS DECREASED PAIN AT 4/10. VSS. PT AWAITING PROCEDURE. CALL LIGHT IN REACH.
--- NOTE | 2020-11-14 19:08 | NUR ---
PATIENT AND [id number] VERBALIZED UNDERSTANDING OF DISCHARGE INSTRUCTIONS AND PRECAUTIONS. NEP TUBE TO DRAINAGE BAG SECURED IN PLACE TO RIGHT LEG WITH STRAP. DRESSING DRY AND INTACT. PATIENT DENIES ANY PAIN OR DISCOMFORT. DENIES NAUSEA. PATIENT TRANSFERRED TO WAITING CAR VIA WHEEL CHAIR. NO FURTHER QUESTIONS FROM PATIENT OR FAMILY.
[2021-03-23] MEDS ORDERED: METO25ER PO (15:32)
[2021-03-23] MEDS ORDERED: Sanctura20 MG PO (15:33)
[2021-03-23] MEDS ORDERED: CALCIUM ACETAT667 M1 PO (15:35)
[2021-03-23] MEDS ORDERED: BUME2 PO (15:40)
[2021-03-23] MEDS ORDERED: IPRAT-ALBUT 0.5-3 ML INH (15:43)
[2021-03-23] MEDS ORDERED: CEFP200 PO (20:52)
[2021-03-23] MEDS ORDERED: AZIT250 PO (20:53)
[2021-03-24] MEDS ORDERED: Prednisone10 MG PO (14:30)
[2021-03-24] MEDS ORDERED: ENTRESTO 24 MG1 EACH PO (14:31)
[2021-03-24] MEDS ORDERED: METO50 PO (14:32)
== END 2020-11-14 19:00 | disposition home or self-care (01) ==
LOC: MHTC 14:43
DX: N13.30 Unspecified hydronephrosis (principal); Q62.39 Other obstructive defects of renal pelvis and ureter; I12.0 Hypertensive chronic kidney disease with stage 5 chronic kidney disease or end stage renal disease; E11.22 Type 2 diabetes mellitus with diabetic chronic kidney disease; N18.6 End stage renal disease; J44.9 Chronic obstructive pulmonary disease, unspecified; D63.1 Anemia in chronic kidney disease; Z99.2 Dependence on renal dialysis; Z88.8 Allergy status to other drugs, medicaments and biological substances; Z93.6 Other artificial openings of urinary tract status; Z01.812 Encounter for preprocedural laboratory examination; Z20.822 Contact with and (suspected) exposure to COVID-19
CPT/HCPCS: 0241U; 50432; 76937; 99152; C1729; C1769; C1887; C1894; J2405; J3010; J7040; Q9967

== ENCOUNTER 2020-11-27 22:20 | Observation (INO) | payer OTHER ==
[~2020-11-27] VITALS: Ht 160 cm; Wt 44.6 kg
[2020-11-27 22:52] LABS: BASOPHILS ABSOLUTE AUTO 0.05 K/mm3 (0.00-0.23); BASOPHILS PERCENT AUTO 0 % (0-2); EOSINOPHILS ABSOLUTE AUTO 0.31 K/mm3 (0.00-0.68); EOSINOPHILS PERCENT AUTO 2 % (0-6); Hematocrit 29.4 % (33.0-51.0); Hemoglobin 9.2 g/dL (11.5-16.0); IMMATURE GRAN ABSOLUTE AUTO 0.11 K/mm3 (0.00-0.10); IMMATURE GRAN PERCENT AUTO 1 % (0-1); LYMPHOCYTES ABSOLUTE AUTO 3.43 K/mm3 (0.84-5.20); LYMPHOCYTES PERCENT AUTO 22 % (21-46); MONOCYTES ABSOLUTE AUTO 1.07 K/mm3 (0.16-1.47); MONOCYTES PERCENT AUTO 7 % (4-13); Mean Corpuscular HGB 30.4 pg (26.0-34.0); Mean Corpuscular HGB Conc 31.3 g/dL (31.5-36.5); Mean Corpuscular Volume 97 fL (80-100); Mean Platelet Volume 9.3 fL (9.1-12.4); NEUTROPHILS PERCENT AUTO 68 % (41-73); Platelet Count 264 K/mm3 (150-400); RDW Coefficient Variation 17.3 % (11.7-14.2); RDW Standard Deviation 61.6 fL (35.1-46.3); Red Blood Cell Count 3.03 M/mm3 (3.80-5.20); White Blood Cell Count 15.77 K/mm3 (4.00-11.30)
[2020-11-27 23:06] LABS: Bun/Creatinine Ratio 15.7 (12.0-20.0); Calcium, Blood 7.6 mg/dL (8.5-10.1); Creatinine, Blood 2.36 mg/dL (0.40-1.00); Potassium, Blood 5.2 mmol/L (3.5-5.5); Troponin I 0.144 ng/mL (0.000-0.040)
[2020-11-28 01:08] LABS: International Normalized Ratio 0.97; Prothrombin Time Results 10.4 Sec (9.7-11.5)
[2020-11-28 11:09] LABS: BASOPHILS ABSOLUTE AUTO 0.06 K/mm3 (0.00-0.23); BASOPHILS PERCENT AUTO 0 % (0-2); EOSINOPHILS ABSOLUTE AUTO 0.21 K/mm3 (0.00-0.68); EOSINOPHILS PERCENT AUTO 1 % (0-6); Hematocrit 30.8 % (33.0-51.0); Hemoglobin 9.9 g/dL (11.5-16.0); IMMATURE GRAN ABSOLUTE AUTO 0.13 K/mm3 (0.00-0.10); IMMATURE GRAN PERCENT AUTO 1 % (0-1); LYMPHOCYTES ABSOLUTE AUTO 2.03 K/mm3 (0.84-5.20); LYMPHOCYTES PERCENT AUTO 12 % (21-46); MONOCYTES ABSOLUTE AUTO 1.03 K/mm3 (0.16-1.47); MONOCYTES PERCENT AUTO 6 % (4-13); Mean Corpuscular HGB 30.9 pg (26.0-34.0); Mean Corpuscular HGB Conc 32.1 g/dL (31.5-36.5); Mean Corpuscular Volume 96 fL (80-100); Mean Platelet Volume 9.5 fL (9.1-12.4); NEUTROPHILS PERCENT AUTO 79 % (41-73); Platelet Count 250 K/mm3 (150-400); RDW Standard Deviation 59.9 fL (35.1-46.3); White Blood Cell Count 16.46 K/mm3 (4.00-11.30)
[2020-11-28 11:32] LABS: Albumin, Blood 2.5 g/dL (3.4-5.0); Albumin/Globulin Ratio 0.5 (0.8-1.8); Bilirubin, Total 0.7 mg/dL (0.1-1.0); Bun/Creatinine Ratio 15.5 (12.0-20.0); Calcium, Blood 7.8 mg/dL (8.5-10.1); Creatinine, Blood 2.33 mg/dL (0.40-1.00); Globulin, Blood 4.6 g/dL (2.2-4.0); Potassium, Blood 5.1 mmol/L (3.5-5.5); Total Protein, Blood 7.1 g/dL (6.4-8.2)
--- NOTE | 2020-11-28 14:04 | NUR ---
PT ARRIVED TO UNIT @ 1250 FROM ED. PT WAS ORIENED TO ROOM AND CALL SYSTEM. HEPARIN DRIP RUNNING @ TIME OF ARRIVAL AT 13 UNITS/HR. ADMISSION COMPLETED. PT IS CURRENTLY RESTING IN BED AND APPEARS TO BE IN NO DISRESS. ON RA AND HAS NO COMPLAINTS OF CP OR PRESSURE.
--- NOTE | 2020-11-28 14:09 | NUR ---
PT CBG ASSESSED AT TOA TO UNIT. CBG WAS 66. PT WAS GIVEN A CONTAINER OF ORANGE JUICE TO DRINK. PT CONSUMED THE OJ, CBG WAS REASSESSED 15 MINUTES LATER AND CBG WAS 85. PT SHOWED NO S/SX OF HYPOGLYCEMIA. DR CARDENAS INFORMED. WILL RECHECK CBG @ 1420 (ONE HOUR AFTER LAST) PER PROTOCOL TO ENSURE IT HAS NOT DROPPED AGAIN.
--- NOTE | 2020-11-28 15:52 | NUR ---
AFTERNOON VITALS WERE COMPLETED. PT BP WAS 172/96. CALLED DR CARDENAS DUE TO ME GIVING PRN HYDRALAZINE @ 1316. SHE STATED TO GO AHEAD AND GIVE 10MG IV HYDRALAZINE ONE TIME NOW. MEDICATION WAS ADMINISTERED. REASSESSED PT BP APPROX 15 MINUTES AFTER AND BP WAS 143/77 AND PULSE OF 91. PT HAD NO COMPLAINTS OF CP, PRESSURE, OR SOB DURING THIS TIME.
[2020-11-28 18:50] LABS: Creatinine, Blood 2.62 mg/dL (0.40-1.00)
--- NOTE | 2020-11-28 19:04 | NUR ---
SHIFT SUMMARY PT ARRIVED TO FLOOR FROM ED TODAY. PT A&Ox4, CALM AND COOPERATIVE WITH CARE. BP HAS BEEN UNSTABLE T/O SHIFT, IV HYDRALAZINE GIVEN X2. BP STABLE AFTER ADMINISTRATION, LAST BP 143/77. PT DID NOT COMPLAIN OF ANY CHEST PAIN/PRESSURE OR SOB T/O SHIFT. CBG WAS LOW AT ONE POINT TODAY, PT WAS TREATED PER HYPOGLYCEMIC PROTOCOL AND CBG HAS REMAINED STABLE SINCE. PROVIDER AWARE OF BP AND CBG. PT IS TO HAVE STRESS TEST TOMORROW DUE TO CONTINUED ELEVATING TROPONIN LEVELS. PT ALSO TO GET DIALYSIS TONIGHT PER WONG. PT IS INCONT OF STOOL AND URINE, NEPHROSTOMY TO R FLANK PATENT AND DRAINING. HEPARIN DRIP CONTINUES @ 15 UNITS/HR/KG, RATE OF 13.5 ML/HR. PT IS CURRENTLY LYING IN BED WITH CALL LIGHT WITHIN REACH. APPEARS TO BE IN NO DISTRESS.
--- NOTE | 2020-11-28 20:35 | NUR ---
HD 1:1 NON-ROUTINE HOURS DIALYSIS ORDERED BY DR BACK FOR PATIENT ADMITTED TO MED FLOOR VIA ER WITH C/O SOB AND CP. PT REPORTED MISSING ROUTINE OUTPATIENT DIALYSIS APPT YESTERDAY ( FRIDAY )
[2020-11-29 06:03] LABS: Albumin, Blood 2.2 g/dL (3.4-5.0); Albumin/Globulin Ratio 0.5 (0.8-1.8); BASOPHILS ABSOLUTE AUTO 0.02 K/mm3 (0.00-0.23); BASOPHILS PERCENT AUTO 0 % (0-2); Bilirubin, Total 0.3 mg/dL (0.1-1.0); Bun/Creatinine Ratio 12.9 (12.0-20.0); Calcium, Blood 7.8 mg/dL (8.5-10.1); Creatinine, Blood 1.86 mg/dL (0.40-1.00); EOSINOPHILS ABSOLUTE AUTO 0.01 K/mm3 (0.00-0.68); EOSINOPHILS PERCENT AUTO 0 % (0-6); Globulin, Blood 4.2 g/dL (2.2-4.0); Hematocrit 28.2 % (33.0-51.0); Hemoglobin 9.4 g/dL (11.5-16.0); IMMATURE GRAN ABSOLUTE AUTO 0.11 K/mm3 (0.00-0.10); IMMATURE GRAN PERCENT AUTO 1 % (0-1); LYMPHOCYTES ABSOLUTE AUTO 0.75 K/mm3 (0.84-5.20); LYMPHOCYTES PERCENT AUTO 7 % (21-46); MONOCYTES ABSOLUTE AUTO 0.13 K/mm3 (0.16-1.47); MONOCYTES PERCENT AUTO 1 % (4-13); Magnesium, Blood 1.8 mg/dL (1.6-2.4); Mean Corpuscular HGB 30.6 pg (26.0-34.0); Mean Corpuscular HGB Conc 33.3 g/dL (31.5-36.5); Mean Corpuscular Volume 92 fL (80-100); Mean Platelet Volume 9.7 fL (9.1-12.4); NEUTROPHILS ABSOLUTE AUTO 9.34 K/mm3 (1.96-9.15); NEUTROPHILS PERCENT AUTO 90 % (41-73); Platelet Count 274 K/mm3 (150-400); Potassium, Blood 4.8 mmol/L (3.5-5.5); RDW Coefficient Variation 16.8 % (11.7-14.2); RDW Standard Deviation 56.9 fL (35.1-46.3); Red Blood Cell Count 3.07 M/mm3 (3.80-5.20); Total Protein, Blood 6.4 g/dL (6.4-8.2); Troponin I 0.085 ng/mL (0.000-0.040); White Blood Cell Count 10.36 K/mm3 (4.00-11.30)
--- NOTE | 2020-11-29 07:26 | NUR ---
PROOF CLERK SUMMARY Patient slept through most of the night, although she did not feel well rested when she woke up. No complaints of pain or discomfort. Dialysis removed 1.8 liters of fluid yesterday evening after dinner afterwhich patient said she was feeling much better. Heparin gtt continued overnight at 15u/kg/hr, and patient tolerated it well.
--- NOTE | 2020-11-29 11:47 | NUR ---
Echocardiogram performed by Mckenzie Esparza under my supervision.
--- NOTE | 2020-11-29 18:14 | NUR ---
SHIFT SUMMARY PT IS A&O AND ABLE TO MAKE NEEDS KNOWN. PT USES CALL LIGHT AND IS SBA TO BATHROOM. PT HAS A RIGHT FLANK NEPHROSTOMY & RIGHT CHEST PERMCATH. IV IS IN RIGHT AC. PT HAD DIALYSIS THIS MORNING AND ECHOCARDIOGRAM. PT TOOK A SHOWER IN THE AFTERNOON AND DID HER OWN ADL. PT DENIES P/N/V. SHE IS CURENTLY IN ROOM FINISHING DINNER, CALL LIGHT W/IN REACH. CONSULT FOR [facility] WAS CALLED IN THIS AFTERNOON FOR THIS PATIENT, LEFT MESSAGE WITH ANSWERING SERVICE.
--- NOTE | 2020-11-30 04:13 | NUR ---
SHIFT SUMMARY A/O, ABLE TO MAKE NEEDS KNOWN. COOPERATIVE WITH CARE. CALLS AND ANSWERS QUESTIONS APPROPRIATELY. NO C/O PAIN/DISCOMFORT. R NEPHROSTOMY PATENT AND DRAINING TO GRAVITY WITH DRSG C/D/I. APPEARED TO REST MUCH OF THE NIGHT. NO ACUTE CHANGES NOTED OVERNIGHT. VSS/AFEBRILE; NOTED TO BE HYPERTENSIVE, BUT APPEARS ON TREND WITH PREVIOUS PRESSURES. BED REMAINED IN LOWEST POSITION. CALL LIGHT AND BELONGINGS WITHIN REACH. CONTINUE WITH CURRENT PLAN OF CARE. REPORT TO ONCOMING RN.
[2020-11-30 05:26] LABS: Hematocrit 28.5 % (33.0-51.0); Hemoglobin 9.6 g/dL (11.5-16.0)
[2020-11-30 05:54] LABS: Albumin, Blood 2.4 g/dL (3.4-5.0); Anion Gap 7 mmol/L (6-16); Blood Urea Nitrogen 28 mg/dL (8-24); Bun/Creatinine Ratio 12.7 (12.0-20.0); CO2, Blood 25 mmol/L (21-32); Calcium, Blood 7.6 mg/dL (8.5-10.1); Chloride, Blood 99 mmol/L (98-108); Creatinine, Blood 2.21 mg/dL (0.40-1.00); Glomerular Filtration Rate 23 (60-); Glucose, Blood 78 mg/dL (70-99); Magnesium, Blood 1.9 mg/dL (1.6-2.4); Phosphorus, Blood 5.1 mg/dL (2.5-4.9); Potassium, Blood 4.1 mmol/L (3.5-5.5); Sodium, Blood 131 mmol/L (136-145)
--- NOTE | 2020-11-30 17:19 | NUR ---
SHIFT SUMMARY PT IS A&O AND ABLE TO MAKE NEEDS KNOWN. SHE HAD DAILYSIS IN THE [facility] AND A CARDIOLGY CONSULT THIS AFTERNOON. PT IS SCHEDULED TO HAVE A NON-STRESS TEST TOMORROW AND HAS BEEN INSTRUSTRUCTED TO HAVE NO CAFFEEINE AFTER 1800 AND NPO AT 0400 ON 12/01. WORKED WTIH PATIENT THIS AFTERNOON AND CLEANED NEPHROSTOMY BAG. HER IV IS LEAKING SLIGHTLY, SPOKE WITH CHARGE NURSE AND DECIDED TO KEEP IT IN IT IS STILL USUABLE. PT DENIES P/N/V DURING SHIFT. CURENLTY IN ROOM WAITING FOR DINNER TRAYS. CALL LIGHT W/IN REACH.
--- NOTE | 2020-12-01 03:44 | NUR ---
SHIFT SUMMARY A/O, ABLE TO MAKE NEEDS KNOWN. COOPERATIVE WITH CARE. CALLS AND ANSWERS QUESTIONS APPROPRIATELY. NO C/O PAIN/DISCOMFORT. APPEARED TO REST MUCH OF THE NIGHT. INDEPENDENT WITH NEPHROSTOMY. HAS HAD NO CAFFIENE AFTER 1800 AND WILL BE NPO EXCEPT FOR MEDS AND ICE CHIPS AFTER 0400. VSS/AFEBRILE. REMAINS HYPERTENSIVE, HOWEVER APPEARS TO BE ON TREND WITH PREVIOUS PRESSURES. NO ACUTE ACUTE CHANGES NOTED OVERNIGHT. BED REMAINS IN LOWEST POSITION. CALL LIGHT AND BELONGINGS WITHIN REACH. CONTINUE WITH CURRENT PLAN OF CARE. REPORT TO ONCOMING RN.
--- NOTE | 2020-12-01 17:47 | NUR ---
Shift Summary A/Ox3, pleasant and cooperative. Able to make needs known. Denies pain, nausea, vomiting, diarrhea. Tele: ST 103. Nitro patch to RICKEY. Nephrostomy to R flank intact and draining yellow clear urine with some foul/sour odor. 1P SBA to bathroom. Updated Candace (daughter) when she visited. Stress test completed today, patient scheduled for angiogram tomorrow and will need to be NPO @ midnight. No interventions to L arm d/t fistula placement that is scheduled for 12/08. Patient anxious to go home. No acute changes, WCTM.
--- NOTE | 2020-12-02 04:05 | NUR ---
SHIFT SUMMARY A&O, COOPERATIVE W/CARE, 0315 HAD 7 BEAT RUN OF V TACH (STRIP IN CHART) PT WAS ASYMPTOMATIC, VSS, NO OTHER CHANGES, NO C/O ANY KIND, NPO @ MID FOR ANGIO TODAY, INDEP W/NEPH, SLEPT T/O THE NIGHT & SLEEPING AT THIS TIME, CALL LIGHT IN REACH, WILL CONT TO MONITOR UNTIL REPORT GIVEN TO DAY RN.
[2020-12-02 05:31] LABS: Hematocrit 28.3 % (33.0-51.0); Hemoglobin 9.5 g/dL (11.5-16.0)
[2020-12-02 05:57] LABS: Albumin, Blood 2.3 g/dL (3.4-5.0); Anion Gap 12 mmol/L (6-16); Blood Urea Nitrogen 55 mg/dL (8-24); Bun/Creatinine Ratio 22.6 (12.0-20.0); CO2, Blood 19 mmol/L (21-32); Calcium, Blood 7.5 mg/dL (8.5-10.1); Chloride, Blood 101 mmol/L (98-108); Creatinine, Blood 2.43 mg/dL (0.40-1.00); Glomerular Filtration Rate 21 (60-); Glucose, Blood 81 mg/dL (70-99); Magnesium, Blood 1.9 mg/dL (1.6-2.4); Phosphorus, Blood 5.9 mg/dL (2.5-4.9); Potassium, Blood 4.2 mmol/L (3.5-5.5); Sodium, Blood 132 mmol/L (136-145)
[2020-12-02] MEDS ORDERED: ONDA4ODT MM (10:30)
[2020-12-02] MEDS ORDERED: Aspirin EC81 MG PO (10:31)
[2020-12-02] MEDS ORDERED: NITR.4SL SL (10:31)
--- NOTE | 2020-12-02 11:13 | NUR ---
Discharge Summary A/Ox4, Cardiology decided patient will not be having angiogram today, instead, prescribed metoprolol. Also, patient will be needing dialysis today at [facility]. Called [facility] and spoke to Andrezj @ [phone]. Scheduled time for dialysis is 1355. Dr. Burnett informed and discharge orders placed. Patient had breakfast and a shower. During shower, patient bumped R hand on shower chair and sustained a skin tear to R post. hand d/t the fragility of her skin. Cleansed & steri-strips placed. Discharge to home. Reviewed discharge paperwork with patient, questions answered. Meds faxed and side effects reviewed with patient. Personal belongings sent home. IV removed, WNL. Escorted by this RN via w/c.
[2021-03-23] MEDS ORDERED: METO25ER PO (15:32)
[2021-03-23] MEDS ORDERED: Sanctura20 MG PO (15:33)
[2021-03-23] MEDS ORDERED: CALCIUM ACETAT667 M1 PO (15:35)
[2021-03-23] MEDS ORDERED: BUME2 PO (15:40)
[2021-03-23] MEDS ORDERED: IPRAT-ALBUT 0.5-3 ML INH (15:43)
[2021-03-23] MEDS ORDERED: CEFP200 PO (20:52)
[2021-03-23] MEDS ORDERED: AZIT250 PO (20:53)
[2021-03-24] MEDS ORDERED: Prednisone10 MG PO (14:30)
[2021-03-24] MEDS ORDERED: ENTRESTO 24 MG1 EACH PO (14:31)
[2021-03-24] MEDS ORDERED: METO50 PO (14:32)
== END 2020-12-02 10:34 | disposition home or self-care (01) ==
LOC: ER 22:20 → ERHOLD 22:21 → MEDS 22:21 → ERHOLD 22:21 → MEDS 11-28 12:47
PROVIDERS: Internal Medicine; Internal Medicine Nephrology; Student in an Organized Health Care Education/Training Program; ADMIT Internal Medicine
DX: I16.1 Hypertensive emergency (principal); R77.8 Other specified abnormalities of plasma proteins; J44.9 Chronic obstructive pulmonary disease, unspecified; I21.4 Non-ST elevation (NSTEMI) myocardial infarction; I13.2 Hypertensive heart and chronic kidney disease with heart failure and with stage 5 chronic kidney disease, or end stage renal disease; E11.22 Type 2 diabetes mellitus with diabetic chronic kidney disease; I50.33 Acute on chronic diastolic (congestive) heart failure; N17.9 Acute kidney failure, unspecified; N18.6 End stage renal disease; E87.5 Hyperkalemia; E87.2 Acidosis; R60.0 Localized edema; D63.1 Anemia in chronic kidney disease; C90.00 Multiple myeloma not having achieved remission; E46 Unspecified protein-calorie malnutrition; K52.9 Noninfective gastroenteritis and colitis, unspecified; J90 Pleural effusion, not elsewhere classified; I08.0 Rheumatic disorders of both mitral and aortic valves; I47.2 Ventricular tachycardia; F17.210 Nicotine dependence, cigarettes, uncomplicated; Z66 Do not resuscitate; Z88.8 Allergy status to other drugs, medicaments and biological substances; Z79.4 Long term (current) use of insulin; Z99.2 Dependence on renal dialysis
CPT/HCPCS: 36415; 71045; 78452; 80048; 80053; 80069; 82565; 82947; 83735; 84132; 84484; 85014; 85018; 85025; 85610; 85730; 93005; 93010; 93017; 93306; 96365; 96366; 96375; 96376; 99285-25; A9270; A9500; G0257; G0378; J0360; J0706; J0881; J1644; J2785; J2930

== ENCOUNTER 2020-12-23 17:19 | Inpatient (IN) | payer OTHER ==
[~2020-12-23] VITALS: Ht 160 cm; Wt 42.2 kg
[~2020-12-23 17:19] MED LIST changes: +BUME2 PO; +Lopressor 25 mg25 MG PO; +NITR.4SL SL
[2020-12-23 18:14] LABS: BASOPHILS ABSOLUTE AUTO 0.04 K/mm3 (0.00-0.23); BASOPHILS PERCENT AUTO 0 % (0-2); EOSINOPHILS ABSOLUTE AUTO 0.22 K/mm3 (0.00-0.68); EOSINOPHILS PERCENT AUTO 2 % (0-6); Hematocrit 28.6 % (33.0-51.0); Hemoglobin 9.5 g/dL (11.5-16.0); IMMATURE GRAN ABSOLUTE AUTO 0.11 K/mm3 (0.00-0.10); IMMATURE GRAN PERCENT AUTO 1 % (0-1); LYMPHOCYTES ABSOLUTE AUTO 2.71 K/mm3 (0.84-5.20); LYMPHOCYTES PERCENT AUTO 19 % (21-46); MONOCYTES ABSOLUTE AUTO 0.85 K/mm3 (0.16-1.47); MONOCYTES PERCENT AUTO 6 % (4-13); Mean Corpuscular HGB 31.3 pg (26.0-34.0); Mean Corpuscular HGB Conc 33.2 g/dL (31.5-36.5); Mean Corpuscular Volume 94 fL (80-100); Mean Platelet Volume 9.3 fL (9.1-12.4); NEUTROPHILS ABSOLUTE AUTO 10.31 K/mm3 (1.96-9.15); NEUTROPHILS PERCENT AUTO 72 % (41-73); Platelet Count 357 K/mm3 (150-400); RDW Coefficient Variation 14.3 % (11.7-14.2); RDW Standard Deviation 49.6 fL (35.1-46.3); Red Blood Cell Count 3.04 M/mm3 (3.80-5.20); White Blood Cell Count 14.24 K/mm3 (4.00-11.30)
[2020-12-23 18:39] LABS: Albumin, Blood 3.1 g/dL (3.4-5.0); Albumin/Globulin Ratio 0.7 (0.8-1.8); Bilirubin, Total 0.4 mg/dL (0.1-1.0); Bun/Creatinine Ratio 12.6 (12.0-20.0); Calcium, Blood 8.1 mg/dL (8.5-10.1); Creatinine, Blood 1.11 mg/dL (0.40-1.00); Globulin, Blood 4.7 g/dL (2.2-4.0); Magnesium, Blood 1.6 mg/dL (1.6-2.4); Total Protein, Blood 7.8 g/dL (6.4-8.2); Troponin I 0.058 ng/mL (0.000-0.040)
[2020-12-23] MEDS ORDERED: CALCIUM ACETAT667 M1 PO (20:45)
[2020-12-23 20:50] LABS: Source, Urine Clean Catch
[2020-12-23 20:52] LABS: Appearance, Urine Hazy (Clear); Bilirubin, Urine Neg (Neg); Blood, Urine 5+ (Neg); Color, Urine Yellow (P-Yellow); Glucose Qualitative, Urine 2+ (Neg); Ketones, Urine Neg (Neg); Leukocyte Esterase, Urine 3+ (Neg); Nitrite, Urine Neg (Neg); Protein, Urine 3+ (Neg); Urobilinogen, Urine NORM (Normal)
[2020-12-23 21:01] LABS: Bacteria Many /hpf; Red Blood Cells, Urine 25-50 /hpf (0-2); Squamous Epithelial Cells Mod /hpf (Few); White Blood Cells, Urine 25-50 /hpf (0-5)
--- NOTE | 2020-12-23 23:42 | NUR ---
ASSUMPTION OF CARE RECEIVED REPORT FROM YOMAIRA RN. PATIENT ARRIVED TO UNIT AT 2215 VIA GURNEY. 3 PERSON TRANSFER TO BED. PATIENT A/O, REQUESTING FOOD, ANSWERING QUESTIONS APPROPRIATELY. VITALS STABLE, HEART RATE AFIB, LOW 100'S. O2 100% ON 1L 02 VIA LA. CALL PLACED TO DR. BACK, RECEIVED NEW ORDERS AND WILL TREAT PRESCRIBED. ORIENTED PATIENT TO ROOM AND CALL LIGHT. WHITE GLOVE TO LEFT HAND STATING FOR NEUROPATHY. DIALYSIS PORT TO RIGHT SUBCLAVIAN, AND DIALYSIS FISTULA TO LEFT UPPER EXTREMITY CURRENTLY IN HEALING PHASE WITH DRESSING CDI. NEPHROSTOMY TUBE TO RIGHT FLANK, DRAINING SCANT RED DRAINAGE.
[2020-12-23 23:46] LABS: Magnesium, Blood 1.7 mg/dL (1.6-2.4); Potassium, Blood 3.5 mmol/L (3.5-5.5)
[2020-12-24 02:04] LABS: BASOPHILS ABSOLUTE AUTO 0.03 K/mm3 (0.00-0.23); BASOPHILS PERCENT AUTO 0 % (0-2); EOSINOPHILS ABSOLUTE AUTO 0.23 K/mm3 (0.00-0.68); EOSINOPHILS PERCENT AUTO 2 % (0-6); Hemoglobin 8.6 g/dL (11.5-16.0); IMMATURE GRAN ABSOLUTE AUTO 0.05 K/mm3 (0.00-0.10); IMMATURE GRAN PERCENT AUTO 0 % (0-1); LYMPHOCYTES ABSOLUTE AUTO 2.35 K/mm3 (0.84-5.20); LYMPHOCYTES PERCENT AUTO 21 % (21-46); MONOCYTES ABSOLUTE AUTO 0.82 K/mm3 (0.16-1.47); MONOCYTES PERCENT AUTO 7 % (4-13); Mean Corpuscular HGB 31.9 pg (26.0-34.0); Mean Corpuscular HGB Conc 33.1 g/dL (31.5-36.5); Mean Corpuscular Volume 96 fL (80-100); Mean Platelet Volume 9.2 fL (9.1-12.4); NEUTROPHILS ABSOLUTE AUTO 7.93 K/mm3 (1.96-9.15); NEUTROPHILS PERCENT AUTO 70 % (41-73); Platelet Count 287 K/mm3 (150-400); RDW Coefficient Variation 14.5 % (11.7-14.2); RDW Standard Deviation 50.5 fL (35.1-46.3); White Blood Cell Count 11.41 K/mm3 (4.00-11.30)
[2020-12-24 02:24] LABS: Albumin, Blood 2.4 g/dL (3.4-5.0); Albumin/Globulin Ratio 0.6 (0.8-1.8); Bilirubin, Total 0.4 mg/dL (0.1-1.0); Bun/Creatinine Ratio 11.5 (12.0-20.0); Calcium, Blood 7.5 mg/dL (8.5-10.1); Creatinine, Blood 1.74 mg/dL (0.40-1.00); Phosphorus, Blood 2.8 mg/dL (2.5-4.9); Potassium, Blood 3.7 mmol/L (3.5-5.5); Total Protein, Blood 6.4 g/dL (6.4-8.2); Troponin I 0.108 ng/mL (0.000-0.040)
[2020-12-24 02:53] LABS: Influenza A, PCR NEGATIVE (NEGATIVE); Influenza B, PCR NEGATIVE (NEGATIVE); Resp Syncytial Virus, PCR NEGATIVE (NEGATIVE); SARS-Cov-2 (COVID-19) PCR, MMC NEGATIVE (NEGATIVE)
[2020-12-24 03:21] LABS: Source, Urine Catheter
[2020-12-24 03:24] LABS: Appearance, Urine Hazy (Clear); Bilirubin, Urine Neg (Neg); Blood, Urine 5+ (Neg); Color, Urine Yellow (P-Yellow); Glucose Qualitative, Urine Neg (Neg); Ketones, Urine 1+ (Neg); Leukocyte Esterase, Urine 3+ (Neg); Nitrite, Urine Neg (Neg); Protein, Urine 4+ (Neg); Specific Gravity, Urine 1.015 (1.003-1.022); Urobilinogen, Urine NORM (Normal)
[2020-12-24 03:29] LABS: Bacteria Many /hpf; Red Blood Cells, Urine 25-50 /hpf (0-2); Squamous Epithelial Cells Not Seen /hpf (Few); White Blood Cells, Urine 25-50 /hpf (0-5)
[2020-12-24 03:35] LABS: Magnesium, Blood 1.9 mg/dL (1.6-2.4)
--- NOTE | 2020-12-24 04:00 | NUR ---
REASSESSMENT NO ACUTE CHANGES FROM PREVIOUS ASSESSMENT. PATIENT AWOKE TO EAT A SNACK, REPOSITIONING SELF FROM SIDE TO SIDE FOR COMFORT. VITALS REMAIN STABLE, LABS REVIEWED, NEPHROSTOMY DRAINING S/S FLUID. CALL LIGHT IN REACH.
--- NOTE | 2020-12-24 06:07 | NUR ---
PHIL REVIEWED PHIL ORDER WITH KRISHNA FROM PHARMACY. KRISHNA STATED PHARMACY ADJUSTS THIS MEDICATION PER HOSPITAL PROTOCOL. DOSE ORDERED FOR 0600 THIS MORNING IS ACURATE PER LAB RESULTS. WILL TREAT PRESCRIBED.
--- NOTE | 2020-12-24 06:19 | NUR ---
SHIFT SUMMARY NO ACUTE EVENTS SINCE ADMISSION. PATIENT RESTED COMFORTABLY WITH NO REPORTS OF DISTRESS. REPOSITIONED SELF FROM SIDE TO SIDE. VITALS STABLE WITH 1L 02 VIA NC AND SATS ABOVE 95%. BOTH PERIPHERAL IVS REMAIN SALINE LOCKED. DIALYSIS PORT TO RIGHT SUBCLAVIAN REMAINS SECURED, SECURED DRESSING REMAINS TO LEFT UPPER ARM PROTECTING HEALING FISTULA. NEPHROSTOMY TO RIGHT FLANK SUTURED WITH DRESSING SURROUNDING SITE, C/D/I. DRAINING S/S FLUID. DISCUSSED WITH PATIENT HER USUAL URINATION PATTERN, SHE STATED SHE VOIDS 1-2 PER DAY, SOMETIMES NOT AT ALL ON DIALYSIS DAYS. DEPENDS IN PLACE FOR REPORTS OF INCONTINENCE. WILL CONTINUE TO MONITOR. CALL LIGHT IS IN REACH.
--- NOTE | 2020-12-24 07:21 | NUR ---
ASSUMED CARE: PT RESTING QUIETLY IN BED AT THIS TIME. NSR AT TIMES, AFIB ON OCCASION. SALINE LOCKED, 1L O2 VIA NC. NO ACUTE NEEDS OR CONCERNS AT THIS TIME.
--- NOTE | 2020-12-24 07:26 | NUR ---
PT CALLED STAFF INTO ROOM AND ASKED TO USE BEDPAN. REPORTS THAT SHE HAS BEEN FALLING FREQUENTLY AT HOME AND THAT SHE FEELS HER LEGS HAVE BEEN VERY WEAK LATELY. WILL DISCUSS FURTHER WITH DR DURING ROUNDS.
--- NOTE | 2020-12-24 08:41 | NUR ---
DIALYSIS NURSE CAME INTO UNIT AND IS MADE AWARE OF DR BACK'S WISHES FOR BLOOD CULTURE TO BE DRAWN FROM DIALYSIS PORT.
--- NOTE | 2020-12-24 12:41 | NUR ---
TRANSFER NOTE- PT ARRIVED ON MEDICAL FLOOR ALERT AND CONVERSING WITH STAFF NO S&S OF DISTRESS NOTED AT THE TIME OF TRANSFER. PT INSISTENT UPON TRANSFERING HERSELF TO THE NEW BED, SHE SCOOTED UNDER HER OWN POWER FROM ONE BED TO THE OTHER. PT CURRENTLY ON 1L VIA [place] AT THIS TIME.
--- NOTE | 2020-12-24 12:49 | NUR ---
REPORT GIVEN TO ALMAZ CRUZ. PT TRANSFERRED VIA BED BY RN AND SUPERVISOR COMMISSARY PRODUCTION. PT TRANSFERRED HERSELF FROM BED TO BED. ANTHONY AWARE THAT WE ARE WAITING FOR PT/OT EVAL FOR PT. NO FURTHER NEEDS OR CONCERNS AT THIS TIME.
--- NOTE | 2020-12-24 14:30 | NUR ---
PT IN DIALYSIS RECIEVEING TREATMENT, RECIEVED A CALL FROM MICHELLE MUSE, PT C/O SOB. REVIEWED PT MEDICATIONS NO BREATHING Tx ORDERED. PT HR PREVIOUSLY RUNNING 90'S TO ONE TEENS NOW READING 40'S ON VITALS. WENT TO EVALUATE THE PT WHO CONTINUED TO C/O SOB AND REQUEST AN INHAILER. CALLED DR ALMONTE AND RECIEVED AN ORDER FOR TELE AND EKG. PERFORMED EKG, PT ALREADY ON TELE, PLACED ON TELE AFTER TRANSFER TO MEDICAL FLOOR. CALLED WITH THE RESULT OF THE EKG PT HR NOW 80'S ON VITALS MACHINE, SATS 95% BUT HAVE BEEN 99-100. RECIEVED ORDER FOR BREATHING Tx Q4 PRN. CALLED RT KANWAL FOR A TREATMENT. PT RELAXED AT THIS TIME NO S&S OF EXTREME DISTRESS, BP ELEVATED, O2 SATS GREATER THAN 90% HR GREATER THAN 80 ON TELE. FLEXO FOLDER GLUER OPERATOR WILL CTM PT VITALS AND CALL WITH ANY CONCERNS, RT WILL PROVIDE PT WITH TREAMENT.
--- NOTE | 2020-12-24 18:39 | NUR ---
SHIFT SUMMARY- PT DENIES ANY SOB AT THIS TIME. O2 IN PLACESTILL ON 1L VIA NC. RT PROVIDED 1 BREATHING Tx ORDERED PRN Q4 NEEDED. PT IS AWARE. PT STATED SHE USES NEB Tx AT HOME, WELL A RESCUE INHALER. BP ELEVATED WHEN THE PT RETURNED FROM DIALYSIS, GAVE TIME TO SETTLE RECHECK WAS CLOSE TO PT BASELINE. PT ON TELE RUNNING NSR. PT IN BED CURRENTLY, WITH NO S&S OF DISTRESS NOTE. WILL CTM AND PASS ON TO NIGHT RN IN BEDSIDE REPORT.
[2020-12-25 04:59] LABS: Hemoglobin 8.4 g/dL (11.5-16.0)
[2020-12-25 05:30] LABS: Albumin, Blood 2.3 g/dL (3.4-5.0); Anion Gap 7 mmol/L (6-16); Blood Urea Nitrogen 19 mg/dL (8-24); Bun/Creatinine Ratio 10.7 (12.0-20.0); CO2, Blood 28 mmol/L (21-32); Calcium, Blood 7.5 mg/dL (8.5-10.1); Chloride, Blood 99 mmol/L (98-108); Creatinine, Blood 1.78 mg/dL (0.40-1.00); Glomerular Filtration Rate 30 (60-); Glucose, Blood 81 mg/dL (70-99); Magnesium, Blood 1.8 mg/dL (1.6-2.4); Phosphorus, Blood 3.2 mg/dL (2.5-4.9); Potassium, Blood 3.8 mmol/L (3.5-5.5); Sodium, Blood 134 mmol/L (136-145)
--- NOTE | 2020-12-25 05:38 | NUR ---
SHIFT SUMMARY PATIENT ALERT AND ORIENTED. WAS MEDICATED PER EMAR FOR PAIN. NO COMPLAINTS OF SHORTNESS OF BREATH. PATIENT SLEPT WELL OVERNIGHT WITH MINIMAL NEEDS. IVS PATENT AND FLUSHED. BED IN LOWEST POSITION WITH WHEELS LOCKED. CALL LIGHT WITHIN REACH. REPORT GIVEN TO ONCOMING RN.
--- NOTE | 2020-12-25 17:35 | NUR ---
SHIFT SUMMARY SHARIFA'S LUNGS SOUND VERY COARSE THIS SHIFT, GOT PRN RT TREATMENTS. HOME O2 EVAL SHOWED NO OXYGEN NECESSARY. UP IN CHAIR WITH SBA. COMPLAINS OF DYSURIA, DR ALMONTE ORDERED SANCTURA. CLARIFIER EVAL ORDERED, AWAITING THEIR INPUT. SPUTUM CULTURE SENT OFF. PT NOW ON RA. CONTINENT IN BATHROOM, CALLED APPROPRIATELY. CALL LIGHT IN REACH, [facility]
[2020-12-26 04:57] LABS: Hematocrit 24.8 % (33.0-51.0); Hemoglobin 8.1 g/dL (11.5-16.0)
--- NOTE | 2020-12-26 05:01 | NUR ---
SHIFT SUMMARY ASSUMED CARE OF PT AT 1900. PT IS A/OX4. HEART SOUNDS REGULAR, LUNG SOUNDS DIMINISHED IN BASES. PT HAS WET HACKING COUGH. PT WAS UNABLE TO PRODUCE ANOTHER SPUTUM SAMPLE. PT WAS CONTINENT OF URINE. PT WAS ABLE TO EMPTY OWN NEPHROTOMY BAG. PT IS A 1P SBA TO BATHROOM. NO ACUTE EVENTS. PT HOPES TO GO HOME TODAY. CALL LIGHT IN REACH, BED IN LOWEST POSITION.
[2020-12-26 05:17] LABS: Albumin, Blood 2.5 g/dL (3.4-5.0); Anion Gap 9 mmol/L (6-16); Blood Urea Nitrogen 28 mg/dL (8-24); Bun/Creatinine Ratio 11.2 (12.0-20.0); CO2, Blood 24 mmol/L (21-32); Calcium, Blood 7.9 mg/dL (8.5-10.1); Chloride, Blood 94 mmol/L (98-108); Creatinine, Blood 2.49 mg/dL (0.40-1.00); Glomerular Filtration Rate 20 (60-); Glucose, Blood 148 mg/dL (70-99); Magnesium, Blood 1.8 mg/dL (1.6-2.4); Phosphorus, Blood 4.4 mg/dL (2.5-4.9); Potassium, Blood 3.9 mmol/L (3.5-5.5); Sodium, Blood 127 mmol/L (136-145)
--- NOTE | 2020-12-26 17:35 | NUR ---
SUMMARY PT SITTING UP IN BED TALKING ON THE PHONE, PT HAS BEEN PLEASANT AND COOPERATIVE WITH CARE T/O THE DAY, PT WAS VERY SHORT OF BREATH FIRST THING THIS MORNING, PT RECIEVED IV STEROIDS AND A BREATHING TREATMENT, FOLLOWED BY DIALYSIS, PT BREATHING MUCH BETTER POST DIALYSIS, PT HAS BEEN ABLE TO TAKE OFF HER O2 AND GET UP TO THE BATHROOM INDEPENDENTLY, PT REPORTS FEELING BETTER, VSS, WILL CONT TO MONITOR
[2020-12-26] MEDS ORDERED: POTA10T PO (23:45)
[2020-12-26] MEDS ORDERED: FURO40 PO (23:46)
[2020-12-26] MEDS ORDERED: SUCR1 PO (23:47)
[2020-12-26] MEDS ORDERED: [UNRECOGNIZED DRUG - OTHER] IV (23:49)
[2020-12-27 05:29] LABS: Hematocrit 24.5 % (33.0-51.0); Hemoglobin 7.9 g/dL (11.5-16.0)
[2020-12-27 06:02] LABS: Albumin, Blood 2.6 g/dL (3.4-5.0); Anion Gap 10 mmol/L (6-16); Blood Urea Nitrogen 32 mg/dL (8-24); Bun/Creatinine Ratio 14.5 (12.0-20.0); CO2, Blood 23 mmol/L (21-32); Calcium, Blood 8.2 mg/dL (8.5-10.1); Chloride, Blood 93 mmol/L (98-108); Creatinine, Blood 2.21 mg/dL (0.40-1.00); Glomerular Filtration Rate 23 (60-); Glucose, Blood 391 mg/dL (70-99); Magnesium, Blood 1.8 mg/dL (1.6-2.4); Phosphorus, Blood 3.7 mg/dL (2.5-4.9); Sodium, Blood 126 mmol/L (136-145)
--- NOTE | 2020-12-27 08:40 | NUR ---
FITTER MACHINIST SUMMARY PATIENT A&OX4, NO COMPLAINTS OF PAIN OR DISCOMFORT. OOB WITH SBA TO BATHROOM. LEFT ARM FISTULA SITE CLEAN DRY AND INTACT WITH POSITIVE BRUIT AND THRILL. PATIENT STILL ON IV STEROIDS, BUT LOOKING FORWARD TO GOING HOME SOON
[2020-12-27] MEDS ORDERED: ELIQUIS2.5 MG PO (12:48)
[2020-12-27] MEDS ORDERED: IPRAT-ALBUT 0.5-3 ML INH (12:50)
[2020-12-27] MEDS ORDERED: Sanctura20 MG PO (12:50)
[2020-12-27] MEDS ORDERED: VISBIOME 112.51 EACH PO (12:51)
[2020-12-27] MEDS ORDERED: AMOCLA875 PO (12:51)
[2020-12-27] MEDS ORDERED: PRED20 PO (12:52)
--- NOTE | 2020-12-27 14:16 | NUR ---
Brief visit this afternoon. Pt just finished with RT home O2 evaluation. RT reports Pt was able to maintane O2 saturations. Pt eagar to D/C home and is not receptive to my visit. Pt focuses on geting ready to leave including going into bathroom to put clothes on. Pt reports no concerns at this time. Palliative Care will remain available.
[2020-12-27] MEDS ORDERED: LEVFLO500 PO (14:26)
--- NOTE | 2020-12-27 14:40 | NUR ---
SUMMARY PT DISCHARGED TO HOME WITH HER SISTER, PT VERBALIZED UNDERSTANDING OF DISCHARGE INSTRUCTIONS REGARDING MEDS AND FOLLOW UP, PT TAKEN DOWN SAFELY VIA WHEELCHAIR
== END 2020-12-27 14:30 | disposition home health service (06) | DRG 871 ==
LOC: ER 17:19 → ICUW 21:11 → MEDS 12-24 12:35
PROVIDERS: Emergency Medicine; Internal Medicine Nephrology; Nurse Practitioner Acute Care; Physician Assistant; ADMIT Internal Medicine
DX: A41.51 Sepsis due to Escherichia coli [E. coli] (principal); J18.9 Pneumonia, unspecified organism; J96.01 Acute respiratory failure with hypoxia; N18.6 End stage renal disease; C90.00 Multiple myeloma not having achieved remission; E87.1 Hypo-osmolality and hyponatremia; I48.92 Unspecified atrial flutter; J44.0 Chronic obstructive pulmonary disease with (acute) lower respiratory infection; J44.1 Chronic obstructive pulmonary disease with (acute) exacerbation; N13.30 Unspecified hydronephrosis; N39.0 Urinary tract infection, site not specified; Z68.1 Body mass index [BMI] 19.9 or less, adult; I13.2 Hypertensive heart and chronic kidney disease with heart failure and with stage 5 chronic kidney disease, or end stage renal disease; N25.81 Secondary hyperparathyroidism of renal origin; N13.8 Other obstructive and reflux uropathy; A41.9 Sepsis, unspecified organism; B96.1 Klebsiella pneumoniae [K. pneumoniae] as the cause of diseases classified elsewhere; Z20.822 Contact with and (suspected) exposure to COVID-19; D50.9 Iron deficiency anemia, unspecified; D63.1 Anemia in chronic kidney disease; R79.89 Other specified abnormal findings of blood chemistry; I50.9 Heart failure, unspecified; F17.210 Nicotine dependence, cigarettes, uncomplicated; E11.22 Type 2 diabetes mellitus with diabetic chronic kidney disease; E88.09 Other disorders of plasma-protein metabolism, not elsewhere classified; I27.20 Pulmonary hypertension, unspecified; K27.9 Peptic ulcer, site unspecified, unspecified as acute or chronic, without hemorrhage or perforation; Z88.8 Allergy status to other drugs, medicaments and biological substances; Z79.82 Long term (current) use of aspirin; Z79.899 Other long term (current) drug therapy
CPT/HCPCS: 0241U; 36415; 71046; 80053; 80069; 81001; 82947; 83605; 83735; 83880; 84100; 84132; 84145; 84484; 85014; 85018; 85025; 87040; 87077; 87086; 87186; 92610; 93005; 93010; 94640; 94760; 94761; 96365; 96367; 97116; 97162; 97165; 97530; 97535; 99285-25; A9270; A9270-GY; J0456; J0696; J0881; J2930; J3370; J7050; J7512

== ENCOUNTER 2021-01-10 20:51 | Observation (INO) | payer OTHER ==
[~2021-01-10] VITALS: Ht 160 cm; Wt 52.7 kg
[~2021-01-10 20:51] MED LIST changes: +CALCIUM ACETAT667 M1 PO; +ELIQUIS2.5 MG PO; +Sanctura20 MG PO; +VISBIOME 112.51 EACH PO; +[UNRECOGNIZED DRUG - OTHER] IV
[2021-01-10] MEDS ORDERED: ALPRAZOLAM0.5 M1 PO (21:11)
[2021-01-10] MEDS ORDERED: MEGE40T PO (21:12)
[2021-01-10] MEDS ORDERED: FLUTICASONE-SA1 EAC9 INH (21:13)
[2021-01-10] MEDS ORDERED: TIOT18 INH (21:13)
[2021-01-10 21:47] LABS: BASOPHILS ABSOLUTE AUTO 0.03 K/mm3 (0.00-0.23); BASOPHILS PERCENT AUTO 0 % (0-2); EOSINOPHILS ABSOLUTE AUTO 0.23 K/mm3 (0.00-0.68); EOSINOPHILS PERCENT AUTO 2 % (0-6); Hematocrit 24.8 % (33.0-51.0); Hemoglobin 8.2 g/dL (11.5-16.0); IMMATURE GRAN PERCENT AUTO 1 % (0-1); LYMPHOCYTES ABSOLUTE AUTO 1.87 K/mm3 (0.84-5.20); LYMPHOCYTES PERCENT AUTO 12 % (21-46); MONOCYTES ABSOLUTE AUTO 0.93 K/mm3 (0.16-1.47); MONOCYTES PERCENT AUTO 6 % (4-13); Mean Corpuscular HGB 32.2 pg (26.0-34.0); Mean Corpuscular HGB Conc 33.1 g/dL (31.5-36.5); Mean Corpuscular Volume 97 fL (80-100); Mean Platelet Volume 9.9 fL (9.1-12.4); NEUTROPHILS ABSOLUTE AUTO 12.27 K/mm3 (1.96-9.15); NEUTROPHILS PERCENT AUTO 80 % (41-73); Platelet Count 235 K/mm3 (150-400); RDW Standard Deviation 53.9 fL (35.1-46.3); Red Blood Cell Count 2.55 M/mm3 (3.80-5.20); White Blood Cell Count 15.43 K/mm3 (4.00-11.30)
[2021-01-10 21:58] LABS: PCO2 Arterial 34.1 mmHg (35-45); PO2 Arterial 59.3 mmHg (80-100); pH Blood Arterial 7.47 (7.35-7.45)
[2021-01-10 22:02] LABS: Albumin, Blood 2.9 g/dL (3.4-5.0); Albumin/Globulin Ratio 0.8 (0.8-1.8); Bilirubin, Total 0.3 mg/dL (0.1-1.0); Bun/Creatinine Ratio 16.6 (12.0-20.0); Calcium, Blood 7.5 mg/dL (8.5-10.1); Creatinine, Blood 1.93 mg/dL (0.40-1.00); Globulin, Blood 3.7 g/dL (2.2-4.0); Potassium, Blood 4.9 mmol/L (3.5-5.5); Total Protein, Blood 6.6 g/dL (6.4-8.2); Troponin I 0.057 ng/mL (0.000-0.040)
[2021-01-10 22:09] LABS: Magnesium, Blood 1.5 mg/dL (1.6-2.4); Phosphorus, Blood 4.7 mg/dL (2.5-4.9)
--- NOTE | 2021-01-11 04:18 | NUR ---
ADMIT NOTE REPORT FROM ER NURSE ALEX, COVERING FOR PRIMARY RN BREAK. PT BROUGHT TO ROOM ON GURNEY AND SLID HERSELF TO HOSPITAL BED. CALL LIGHT WITHIN REACH. PT ORIENTED TO ROOM/UNIT. PERSONAL POSSESSIONS WITH PT.
--- NOTE | 2021-01-11 04:35 | NUR ---
SHIFT SUMMARY ADMITTED FOR ACUTE ON CHRONIC RESPIRATORY FAILURE WITH HYPOXEMIA. FULL CODE. PLAN IS FOR DIALYSIS THIS AM. PT CURRENTLY ON BEDREST BUT INDEPENDENT WITH CANE AT HOME. OXYGEN CHANGED TO 3 LITERS PT WAS RESTING IN HIGH 90S. NO CONCERNS AT THIS TIME.
--- NOTE | 2021-01-11 04:41 | NUR ---
CTA/STUDENT NURSE I HAVE ASSESSED THIS PT. I HAVE READ THE AUTOMOTIVE PARTS MANAGER'S DOCUMENTATION AND I AGREE WITH HER ASSESSMENT. SHIFT SUMMARY LOCATED UNDER AUTOMOTIVE PARTS MANAGER NOTES.
[2021-01-11 06:17] LABS: Calcium, Blood 7.8 mg/dL (8.5-10.1); Creatinine, Blood 2.12 mg/dL (0.40-1.00); Potassium, Blood 4.3 mmol/L (3.5-5.5)
[2021-01-11] MEDS ORDERED: ONDA4ODT MM (11:53)
--- NOTE | 2021-01-11 12:00 | NUR ---
O2 TITRATED PATIENT TITRATED TO HOME DOSE OF 2 LITERS AND SATING AT 96-97 PERCENT
[2021-01-11] MEDS ORDERED: AZIT500 PO (13:38)
[2021-01-11] MEDS ORDERED: BANATROL PLUS1 EAC1 PO (13:39)
[2021-01-11] MEDS ORDERED: CEFP200 PO (13:39)
[2021-01-11 14:05] LABS: BASOPHILS ABSOLUTE AUTO 0.01 K/mm3 (0.00-0.23); BASOPHILS PERCENT AUTO 0 % (0-2); EOSINOPHILS PERCENT AUTO 0 % (0-6); Hematocrit 28.2 % (33.0-51.0); Hemoglobin 9.4 g/dL (11.5-16.0); IMMATURE GRAN ABSOLUTE AUTO 0.06 K/mm3 (0.00-0.10); IMMATURE GRAN PERCENT AUTO 1 % (0-1); LYMPHOCYTES ABSOLUTE AUTO 0.39 K/mm3 (0.84-5.20); LYMPHOCYTES PERCENT AUTO 4 % (21-46); MONOCYTES ABSOLUTE AUTO 0.09 K/mm3 (0.16-1.47); MONOCYTES PERCENT AUTO 1 % (4-13); Mean Corpuscular HGB 31.6 pg (26.0-34.0); Mean Corpuscular HGB Conc 33.3 g/dL (31.5-36.5); Mean Corpuscular Volume 95 fL (80-100); Mean Platelet Volume 9.6 fL (9.1-12.4); NEUTROPHILS ABSOLUTE AUTO 8.78 K/mm3 (1.96-9.15); NEUTROPHILS PERCENT AUTO 94 % (41-73); Platelet Count 227 K/mm3 (150-400); RDW Coefficient Variation 14.6 % (11.7-14.2); RDW Standard Deviation 50.7 fL (35.1-46.3); Red Blood Cell Count 2.97 M/mm3 (3.80-5.20); White Blood Cell Count 9.33 K/mm3 (4.00-11.30)
--- NOTE | 2021-01-11 16:01 | NUR ---
DISCHARGE PATIENT EDUCATED ON DISCHARGE INSTRUCTIONS AND NEW MEDICATION. PATIENT AND DAUGHTER DENY NEED FOR FURTHER INSTRUCTION AT THIS TIME. IV REMOVED AND INTACT. NO OTHER ACUTE CHANGES IN ASSESSMENT PRIOR TO DISCHARGE. PATIENT WHEELED OUT BY AIDE AND DRIVEN HOME BY DAUGHTER.
--- NOTE | 2021-01-11 16:34 | NUR ---
VIDEO GAME PROGRAMMER REVIEW THIS RN ASSESSED THE PT AND AGREES WITH CURRENT DOCUMENTATION FROM VIDEO GAME PROGRAMMER.
[2021-01-12] MEDS ORDERED: PANTOPRAZOLE SO40 M2 PO (15:24)
[2021-01-12] MEDS ORDERED: BUMETANIDE2 M2 PO (15:25)
== END 2021-01-11 15:44 | disposition home or self-care (01) ==
LOC: ER 20:51 → MEDS 20:52 → ERHOLD 20:52 → MEDS 01-11 02:46 → ENPENDDIS 01-11 10:50 → MEDS 01-11 15:44
PROVIDERS: Emergency Medicine; Family Medicine; ADMIT Internal Medicine
DX: J96.21 Acute and chronic respiratory failure with hypoxia (principal); J44.1 Chronic obstructive pulmonary disease with (acute) exacerbation; D72.829 Elevated white blood cell count, unspecified; I48.91 Unspecified atrial fibrillation; C90.00 Multiple myeloma not having achieved remission; I13.2 Hypertensive heart and chronic kidney disease with heart failure and with stage 5 chronic kidney disease, or end stage renal disease; E11.22 Type 2 diabetes mellitus with diabetic chronic kidney disease; I50.9 Heart failure, unspecified; N18.6 End stage renal disease; D63.1 Anemia in chronic kidney disease; N25.81 Secondary hyperparathyroidism of renal origin; F17.200 Nicotine dependence, unspecified, uncomplicated; Z99.2 Dependence on renal dialysis; Z79.01 Long term (current) use of anticoagulants; Z93.6 Other artificial openings of urinary tract status; Z87.81 Personal history of (healed) traumatic fracture; Z88.8 Allergy status to other drugs, medicaments and biological substances
CPT/HCPCS: 36415; 36600; 71045; 80048; 80053; 82803; 83735; 83880; 84100; 84484; 85025; 93005; 93010; 94640; 94760; 96372; 96374; 99285-25; A9270; G0257; G0378; J0881; J2930

== ENCOUNTER 2021-01-12 13:32 | Observation (INO) | payer OTHER ==
[~2021-01-12] VITALS: Ht 160 cm; Wt 48.0 kg
[~2021-01-12 13:32] MED LIST changes: +ALPRAZOLAM0.5 M1 PO; +BANATROL PLUS1 EAC1 PO; +CEFP200 PO; +FLUTICASONE-SA1 EAC9 INH
[2021-01-12 14:25] LABS: BASOPHILS ABSOLUTE AUTO 0.02 K/mm3 (0.00-0.23); BASOPHILS PERCENT AUTO 0 % (0-2); EOSINOPHILS ABSOLUTE AUTO 0.05 K/mm3 (0.00-0.68); EOSINOPHILS PERCENT AUTO 0 % (0-6); Hemoglobin 8.9 g/dL (11.5-16.0); IMMATURE GRAN ABSOLUTE AUTO 0.09 K/mm3 (0.00-0.10); IMMATURE GRAN PERCENT AUTO 1 % (0-1); LYMPHOCYTES ABSOLUTE AUTO 1.53 K/mm3 (0.84-5.20); LYMPHOCYTES PERCENT AUTO 10 % (21-46); MONOCYTES PERCENT AUTO 6 % (4-13); Mean Corpuscular Volume 97 fL (80-100); Mean Platelet Volume 9.3 fL (9.1-12.4); NEUTROPHILS ABSOLUTE AUTO 13.24 K/mm3 (1.96-9.15); NEUTROPHILS PERCENT AUTO 84 % (41-73); Platelet Count 247 K/mm3 (150-400); RDW Coefficient Variation 15.1 % (11.7-14.2); RDW Standard Deviation 53.7 fL (35.1-46.3); Red Blood Cell Count 2.78 M/mm3 (3.80-5.20); White Blood Cell Count 15.83 K/mm3 (4.00-11.30)
[2021-01-12 14:43] LABS: Albumin/Globulin Ratio 0.9 (0.8-1.8); Bilirubin, Total 0.3 mg/dL (0.1-1.0); Bun/Creatinine Ratio 15.4 (12.0-20.0); Calcium, Blood 7.7 mg/dL (8.5-10.1); Creatinine, Blood 2.79 mg/dL (0.40-1.00); Globulin, Blood 3.5 g/dL (2.2-4.0); Potassium, Blood 4.1 mmol/L (3.5-5.5); Total Protein, Blood 6.5 g/dL (6.4-8.2); Troponin I 0.067 ng/mL (0.000-0.040)
[2021-01-12] MEDS ORDERED: PANTOPRAZOLE SO40 M2 PO (15:24)
[2021-01-12] MEDS ORDERED: BUMETANIDE2 M2 PO (15:25)
[2021-01-13 04:46] LABS: Hematocrit 28.2 % (33.0-51.0); Hemoglobin 9.3 g/dL (11.5-16.0)
[2021-01-13 05:06] LABS: Albumin, Blood 2.8 g/dL (3.4-5.0); Albumin/Globulin Ratio 0.8 (0.8-1.8); Bilirubin, Total 0.3 mg/dL (0.1-1.0); Bun/Creatinine Ratio 16.7 (12.0-20.0); Calcium, Blood 7.3 mg/dL (8.5-10.1); Creatinine, Blood 1.98 mg/dL (0.40-1.00); Globulin, Blood 3.5 g/dL (2.2-4.0); Magnesium, Blood 1.7 mg/dL (1.6-2.4); Phosphorus, Blood 4.4 mg/dL (2.5-4.9); Potassium, Blood 3.6 mmol/L (3.5-5.5); Total Protein, Blood 6.3 g/dL (6.4-8.2)
--- NOTE | 2021-01-13 06:07 | NUR ---
SHIFT SUMMARY PT WAS ALERT, ORIENTED, AND COOPERATIVE WITH CARE. PT STATED DIFFICULTY BREATHING AT START OF SHIFT ON 2LPM VIA NC WITH O2 SATS >90%. PT HAD DIALYSIS AND PER REPORT REMOVED 2L OF FLUID. PT STATED FEELING MUCH BETTER AND NO LONGER DIFFICULTY BREATHING. PT REMAINED ON 2LPM T/O THE NIGHT WITH O2 SATS >96%. BY HYPERTENSIVE DURING DIALYSIS, UP TO 186/104. BP BACK DOWN TO 133/85 AFTER DIALYSIS. HR 80-100'S WITH PAC'S. PT ABLE TO AMBULATE AND USE BSC, PT VOIDS URINE, HAS NEPHROSTOMY ON R SIDE, DRESSING CHANGED 01/11 PER PT. PT STATED PAIN/BURNING WITH URINATION. PT OTHERWISE HAD AN UNEVENTFUL NIGHT WITH DIALYSIS.
--- NOTE | 2021-01-13 08:00 | NUR ---
PT SITTING UP IN CHAIR EATING BREAKFAST, ISN'T ABLE TO CLEARLY ANSWER QUESTIONS, BUT IS A/OX3, PLEASANT AND COOPERATIVE WITH CARE, FOLLOWS COMMANDS WELL, DENIES PAIN, STATES SHE IS BREATHING BETTER, LUNGS ARE DIM T/O, STATES SHE HAS A NONPRODUCTIVE COUGH, STATES IT'S STUCK, IS ON 2 LITERS O2 AND IS A HOME O2 USER, HRR, TELE IN PLACE RUNNING SR WITH OCC PVC'S, NO EDEMA NOTED, PPP+1, CAP REFILL <3SEC, VS STABLE, AFEBRILE, IV SITE IS CLEAR AND PATENT, BTX4, ABD FLAT SOFT NONTENDER, VOIDS VIS NEPHROSTOMY AND VOIDS, SKIN C/W/D, BREE العلي, CALL LIGHT IN REACH.
--- NOTE | 2021-01-13 12:15 | NUR ---
PT'S CALLED asking about pt's status post angio. Called and he said that he will call Narciso Sandoval (pt's ) now. Call to Dr Leung to update her on plan for [facility] for pt to [facility]. Also clarified that pt only needs 20 MEq of Kcl, not 40 total today.
--- NOTE | 2021-01-13 16:02 | NUR ---
pt has been discharged to home with instructions to have an extra dialysis day on friday, and to keep regular schedule after. she verbalized understanding, her time was written down for her. iv removed intact, she did bleed a lot pressure held until stopped, no new medications to call in. daughter in law coming to transport her home.
--- NOTE | 2021-01-13 16:48 | NUR ---
PT LEFT VIA WHEELCHAIR WITH MATERIALS ENGINEER IN ATTENDENCE.
== END 2021-01-13 16:48 | disposition home or self-care (01) ==
LOC: ER 13:32 → PCU 13:33 → ER 18:19 → PCU 18:51
PROVIDERS: Emergency Medicine; Family Medicine; Internal Medicine Nephrology; ADMIT Internal Medicine
DX: I13.2 Hypertensive heart and chronic kidney disease with heart failure and with stage 5 chronic kidney disease, or end stage renal disease (principal); I50.30 Unspecified diastolic (congestive) heart failure; N18.6 End stage renal disease; E87.70 Fluid overload, unspecified; E11.22 Type 2 diabetes mellitus with diabetic chronic kidney disease; J96.21 Acute and chronic respiratory failure with hypoxia; A41.9 Sepsis, unspecified organism; J44.9 Chronic obstructive pulmonary disease, unspecified; R79.89 Other specified abnormal findings of blood chemistry; E87.1 Hypo-osmolality and hyponatremia; D64.9 Anemia, unspecified; C90.00 Multiple myeloma not having achieved remission; F17.200 Nicotine dependence, unspecified, uncomplicated; I25.2 Old myocardial infarction; I48.91 Unspecified atrial fibrillation; I27.20 Pulmonary hypertension, unspecified; I31.3 Pericardial effusion (noninflammatory); Z93.6 Other artificial openings of urinary tract status; Z99.2 Dependence on renal dialysis; Z88.8 Allergy status to other drugs, medicaments and biological substances; Z87.81 Personal history of (healed) traumatic fracture; Z79.01 Long term (current) use of anticoagulants; Z79.82 Long term (current) use of aspirin
CPT/HCPCS: 36415; 71045; 80053; 83605; 83735; 83880; 84100; 84145; 84484; 85014; 85018; 85025; 87086; 93005; 93010; 93308; 93321; 93971; 94640; 94760; 99285-25; A9270; A9270-GY; G0257; J0696; J2930; J7050

== ENCOUNTER 2021-01-27 16:20 | Observation (INO) | payer OTHER ==
[~2021-01-27] VITALS: Ht 160 cm; Wt 49.3 kg
[~2021-01-27 16:20] MED LIST changes: -BUME2 PO; +BUMETANIDE2 M2 PO; -CALCIUM ACETAT667 M1 PO; -Lopressor 25 mg25 MG PO; +PANTOPRAZOLE SO40 M2 PO; -Sanctura20 MG PO
[2021-01-27] MEDS ORDERED: Sanctura20 MG PO (16:59)
[2021-01-27] MEDS ORDERED: SUCR1 PO (17:00)
[2021-01-27 17:09] LABS: BASOPHILS ABSOLUTE AUTO 0.05 K/mm3 (0.00-0.23); BASOPHILS PERCENT AUTO 1 % (0-2); EOSINOPHILS ABSOLUTE AUTO 0.13 K/mm3 (0.00-0.68); EOSINOPHILS PERCENT AUTO 1 % (0-6); Hematocrit 30.3 % (33.0-51.0); Hemoglobin 9.6 g/dL (11.5-16.0); IMMATURE GRAN ABSOLUTE AUTO 0.06 K/mm3 (0.00-0.10); IMMATURE GRAN PERCENT AUTO 1 % (0-1); LYMPHOCYTES ABSOLUTE AUTO 2.43 K/mm3 (0.84-5.20); LYMPHOCYTES PERCENT AUTO 24 % (21-46); MONOCYTES ABSOLUTE AUTO 0.73 K/mm3 (0.16-1.47); MONOCYTES PERCENT AUTO 7 % (4-13); Mean Corpuscular HGB 31.5 pg (26.0-34.0); Mean Corpuscular HGB Conc 31.7 g/dL (31.5-36.5); Mean Corpuscular Volume 99 fL (80-100); Mean Platelet Volume 9.4 fL (9.1-12.4); NEUTROPHILS ABSOLUTE AUTO 6.61 K/mm3 (1.96-9.15); NEUTROPHILS PERCENT AUTO 66 % (41-73); Platelet Count 271 K/mm3 (150-400); RDW Coefficient Variation 14.2 % (11.7-14.2); RDW Standard Deviation 51.1 fL (35.1-46.3); Red Blood Cell Count 3.05 M/mm3 (3.80-5.20); White Blood Cell Count 10.01 K/mm3 (4.00-11.30)
[2021-01-27 17:30] LABS: Albumin, Blood 3.2 g/dL (3.4-5.0); Albumin/Globulin Ratio 0.8 (0.8-1.8); Bilirubin, Total 0.3 mg/dL (0.1-1.0); Creatinine, Blood 2.34 mg/dL (0.40-1.00); Globulin, Blood 3.8 g/dL (2.2-4.0)
[2021-01-27 17:48] LABS: Bun/Creatinine Ratio 18.8 (12.0-20.0); Calcium, Blood 7.8 mg/dL (8.5-10.1); Magnesium, Blood 1.5 mg/dL (1.6-2.4); Potassium, Blood 3.9 mmol/L (3.5-5.5); Troponin I 0.106 ng/mL (0.000-0.040)
[2021-01-27] MEDS ORDERED: CHANTIX1 EACH PO (18:56)
--- NOTE | 2021-01-27 19:38 | NUR ---
NON-ROUTINE HOURS 1:[address] BACK FOR PATIENT TO BE ADMITTED TO FLOOR VIA ER WITH C/O SOB R/T EXCESS FLUID. HD TO COMMENCE SOON PATIENT TRANSFERED TO FLOOR.
--- NOTE | 2021-01-27 23:57 | NUR ---
ADMIT NOTE PT ARRIVED TO PCU FROM ED VIA ED STRETCHER AT APPROX 2014. THE PT WAS SLID FROM ED STRETCHER TO PCU BED B 4 STAFF. PT A&OX4. SP02>92% ON 4L NC. PT HAS LABORED BREATHING. TELEMETRY READS SR, HR 80'S. SABRINA, FROM DIALYSIS, IN ROOM UPON ADMIT TO START DIALYSIS. PT HAS PERMCATH IN R UPPER CHEST, FISTULA IN L FOREARM. PT HAS NEPROSTOMY BAG COLLECTING CLEAR YELLOW URINE. PT INCONTINENT OF BOWEL, C/D ATTENDS IN PLACE. PT ORIENTED TO ROOM. CALL LIGHT IN REACH.
[2021-01-28 04:05] LABS: Hematocrit 28.8 % (33.0-51.0); Hemoglobin 9.3 g/dL (11.5-16.0)
--- NOTE | 2021-01-28 04:48 | NUR ---
SHIFT SUMMARY NO ACUTE CHANGES THIS SHIFT. PT A&OX4. SP02>92% ON 4L NC. PT SOB RELIVED AFTER DIALYSIS. TELEMETRY READS SR, HR 80'S. SABRINA, FROM DIALYSIS, IN ROOM THIS SHIFT FOR DIALYSIS. DR BACK IN ROOM THIS EVENING TO CONSULT. PT HAS PERMCATH IN R UPPER CHEST, FISTULA IN L FOREARM. PT HAS NEPROSTOMY BAG COLLECTING CLEAR DARK YELLOW URINE. PT INCONTINENT OF STOOL, C/D ATTENDS IN PLACE. PT DENIED PAIN. SCDS ON DURING SHIFT. CALL LIGHT IN REACH. WILL GIVE REPORT TO ONCOMING NURSE.
[2021-01-28 04:52] LABS: Albumin, Blood 3.2 g/dL (3.4-5.0); Albumin/Globulin Ratio 0.9 (0.8-1.8); Bilirubin, Total 0.4 mg/dL (0.1-1.0); Calcium, Blood 8.2 mg/dL (8.5-10.1); Creatinine, Blood 1.56 mg/dL (0.40-1.00); Globulin, Blood 3.6 g/dL (2.2-4.0); Phosphorus, Blood 3.9 mg/dL (2.5-4.9); Potassium, Blood 3.7 mmol/L (3.5-5.5); Total Protein, Blood 6.8 g/dL (6.4-8.2)
--- NOTE | 2021-01-28 17:08 | NUR ---
SHIFT SUMMARY; A/A/OX4 DURING SHIFT. REMOVED FROM O2 TO RA BY MAINTAINING SATS OF 96%. NEPHOSTOMY DRAINING TO LEG BAG, UP TO CHAIR AT BEDSIDE DURING SHIFT. REPOSITIONS SELF IN BED, BSC WITH STANDBY ASSIST. VSS, WILL CONTINUE TO TREAT AND MONITOR UNTIL CHANGE OF SHIFT.
[2021-01-29 03:47] LABS: Hemoglobin 8.6 g/dL (11.5-16.0)
[2021-01-29 04:08] LABS: Albumin, Blood 3.1 g/dL (3.4-5.0); Anion Gap 12 mmol/L (6-16); Blood Urea Nitrogen 49 mg/dL (8-24); Bun/Creatinine Ratio 21.2 (12.0-20.0); CO2, Blood 22 mmol/L (21-32); Calcium, Blood 7.9 mg/dL (8.5-10.1); Chloride, Blood 100 mmol/L (98-108); Creatinine, Blood 2.31 mg/dL (0.40-1.00); Glomerular Filtration Rate 22 (60-); Glucose, Blood 211 mg/dL (70-99); Magnesium, Blood 1.9 mg/dL (1.6-2.4); Phosphorus, Blood 5.3 mg/dL (2.5-4.9); Potassium, Blood 3.9 mmol/L (3.5-5.5); Sodium, Blood 134 mmol/L (136-145)
--- NOTE | 2021-01-29 05:39 | NUR ---
SHIFT SUMMARY PATIENT FOUND TO BE A&OX4, MENDES, FOLLOWING COMMANDS. SR IN THE 60'S ON THE MONITOR CURRENTLY. ON RA UPON ASSESSMENT IN NO ACUTE DISTRESS. HUFFMAN NOTED BUT MUCH IMPROVED PER PATIENT REPORT. BP ELEVATED BUT OTHERWISE VSS. 3L NC USED PRN AFTER EXERTION. UP WITH SBA TO BSC. LEFT NEPHROSTOMY TUBE PATENT. PRN XANAX GIVEN FOR ANXIETY/SLEEP. NO CONCERNS AT THIS TIME. WILL CONTINUE TO MONITOR.
--- NOTE | 2021-01-29 10:32 | NUR ---
PT ALERT AND ORIENTED X4. ON ROOM AIR THIS AM SATING ABOVE 92%. DENIES SOB. LABORED BREATHING WHEN UP. TELE SHOWING SINUS WITH HR 70-80'S. STATES SHE WEAR OXYGEN PRN AT NIGHT. NEPHROSTOMY DRAINING CLEAR, CARRIE URINE. RIGHT FOREARM IV FLUSHING AND SALINE LOCKED. ACHS. DIALYSIS THIS AM. WILL CONTINUE TO MONITOR.
--- NOTE | 2021-01-29 12:32 | NUR ---
PT BACK FROM DIALYSIS. NO ACUTE CHANGES. SITTING UP IN BED EATING LUNCH. WILL CONTINUE TO MONITOR
--- NOTE | 2021-01-29 17:52 | NUR ---
SHIFT SUMMARY: PT REMAINS ALERT AND ORIENTED X4. ON ROOM AIR SATING WELL. NO ACUTE CHANGES. SLEEPING ON AND OFF AFTER DIALYSIS. NEPHROSTOMY DRAINING WELL. PT DENIES PAIN. MEDICAL STATUS NO TELE. VITAL SIGNS STABLE. EATING WELL. CALLING APPROPRIATLY. WILL REPORT OFF TO ONCOMING RN.
--- NOTE | 2021-01-29 21:50 | NUR ---
ASSUMED CARE RECEIVED REPORT FROM ELENIASSOCIATE DIRECTOR CAREER SERVICES. PT TRANSPORTED TO MEDICAL FLOOR VIA W/C. TRANSFERRED TO BED. NO ACUTE CHANGES NOTED FROM SHIFT ASSESSMENT, O2 SATS WNL ON 3L/NC. NEPHROSTOMY TO RT FLANK DRAINING SMALL AMOUNT CARRIE YELLOW URINE, DRSG C/D/I, TUBING FREE OF KINKS. PT DENIES PAIN OR NEEDS AT THIS TIME. CALL LIGHT, POSSESSIONS IN REACH, BED IN LOW POSITION WITH ALARMS ON.
--- NOTE | 2021-01-29 21:55 | NUR ---
PATIENT ALERT, ORIENTED, AND COOPERATIVE WITH CARE. REPOSITIONS SELF IN BED. ONE PERSON ASSIST TO BEDSIDE COMMODE. HAD INCONTINENT FORMED BOWEL MOVEMENT. NEPHROSTOMY DRAINING, CLEAR CARRIE. 02 SATS >90% ON RA, PATIENT STATES SHE WEARS 3L 02 VIA NC AT NIGHT PRN. VSS, NO ACUTE CHANGES. REPORT CALLED TO ALMAZ CONNORS. PATIENT TRANSFERRED VIA WHEEL CHAIR TO ROOM [phone] @[phone].
--- NOTE | 2021-01-30 06:00 | NUR ---
DEVELOPMENT DIRECTOR SUMMARY PT RESTING, IN NO ACUTE DISTRESS. HAS BEEN SLEEPING THROUGH MUCH OF THE NIGHT SINCE TRANSFER TO MEDICAL FLOOR. VS REVIEWED,WNL; O2 SATS STABLE ON 3L/NC. PT HAS CALLED APPROPRIATELY T/O NIGHT. DENIES PAIN OR DISCOMFORT. NO ACUTE NEEDS ASSESSED AT THIS TIME. CALL LIGHT, POSSESSIONS IN REACH, BED IN LOW POSITION WITH ALARMS ON. WILL CONTINUE TO PROVIDE CARE UNTIL REPORT GIVEN TO DAY RN.
[2021-01-30 06:48] LABS: Albumin, Blood 2.9 g/dL (3.4-5.0); Anion Gap 8 mmol/L (6-16); Blood Urea Nitrogen 38 mg/dL (8-24); Bun/Creatinine Ratio 16.7 (12.0-20.0); CO2, Blood 24 mmol/L (21-32); Calcium, Blood 7.3 mg/dL (8.5-10.1); Chloride, Blood 100 mmol/L (98-108); Creatinine, Blood 2.27 mg/dL (0.40-1.00); Glomerular Filtration Rate 22 (60-); Glucose, Blood 84 mg/dL (70-99); Magnesium, Blood 1.8 mg/dL (1.6-2.4); Phosphorus, Blood 3.4 mg/dL (2.5-4.9); Potassium, Blood 4.1 mmol/L (3.5-5.5); Sodium, Blood 132 mmol/L (136-145)
--- NOTE | 2021-01-30 16:33 | NUR ---
PATIENT DISCHARGE: PATIENT DISCHARGED TO HOME / XFR TO HOME HEALTH THIS SHIFT. MEDICATION RECONCILIATION COMPLETED; NO NEW MEDS TO REPORT. DISCHARGE EDUCATION COMPLETED WITH PATIENT AND FAMILY; PT NOTIFIED OF HD APPOINTMENT 01/31 @ 1620 @ DOC. PATIENT TRANSPORTED TO EXIT BY [facility] STAFF WITH WHEELCHAIR AT 1535. PATIENT DEPARTED [facility] VIA PRIVATE AUTO.
[2021-03-23] MEDS ORDERED: METO25ER PO (15:32)
[2021-03-23] MEDS ORDERED: Sanctura20 MG PO (15:33)
[2021-03-23] MEDS ORDERED: CALCIUM ACETAT667 M1 PO (15:35)
[2021-03-23] MEDS ORDERED: BUME2 PO (15:40)
[2021-03-23] MEDS ORDERED: IPRAT-ALBUT 0.5-3 ML INH (15:43)
[2021-03-23] MEDS ORDERED: CEFP200 PO (20:52)
[2021-03-23] MEDS ORDERED: AZIT250 PO (20:53)
[2021-03-24] MEDS ORDERED: Prednisone10 MG PO (14:30)
[2021-03-24] MEDS ORDERED: ENTRESTO 24 MG1 EACH PO (14:31)
[2021-03-24] MEDS ORDERED: METO50 PO (14:32)
== END 2021-01-30 15:31 | disposition home health service (06) ==
LOC: ER 16:20 → PCU 16:21 → MEDS 01-29 21:20 → ENPENDDIS 01-30 11:15 → MEDS 01-30 15:31
PROVIDERS: Emergency Medicine; Internal Medicine Nephrology; ADMIT Internal Medicine
DX: J96.21 Acute and chronic respiratory failure with hypoxia (principal); I13.2 Hypertensive heart and chronic kidney disease with heart failure and with stage 5 chronic kidney disease, or end stage renal disease; N18.6 End stage renal disease; I50.33 Acute on chronic diastolic (congestive) heart failure; D63.1 Anemia in chronic kidney disease; E87.70 Fluid overload, unspecified; E11.22 Type 2 diabetes mellitus with diabetic chronic kidney disease; E11.65 Type 2 diabetes mellitus with hyperglycemia; I48.91 Unspecified atrial fibrillation; I27.20 Pulmonary hypertension, unspecified; J44.9 Chronic obstructive pulmonary disease, unspecified; C90.00 Multiple myeloma not having achieved remission; F17.210 Nicotine dependence, cigarettes, uncomplicated; Z99.2 Dependence on renal dialysis; Z88.8 Allergy status to other drugs, medicaments and biological substances; Z91.19 Patient's noncompliance with other medical treatment and regimen; Z79.01 Long term (current) use of anticoagulants; Z93.6 Other artificial openings of urinary tract status
CPT/HCPCS: 36415; 71045; 80053; 80069; 82947; 83735; 83880; 84100; 84484; 85014; 85018; 85025; 93005; 93010; 94640; 94644; 94660; 94760; 94761; 94762; 96372; 96374; 96376; 97110; 97161; 97166; 97530; 99285-25; A9270; G0257; G0378; J0881; J1940; J2060; J2930; J7512

== ENCOUNTER 2021-02-12 10:09 | Emergency (ER) | payer OTHER ==
[~2021-02-12] VITALS: Ht 160 cm; Wt 47.2 kg
[~2021-02-12 10:09] MED LIST changes: +CHANTIX1 EACH PO; +Sanctura20 MG PO
[2021-02-12 11:04] LABS: BASOPHILS ABSOLUTE AUTO 0.04 K/mm3 (0.00-0.23); BASOPHILS PERCENT AUTO 0 % (0-2); EOSINOPHILS ABSOLUTE AUTO 0.13 K/mm3 (0.00-0.68); EOSINOPHILS PERCENT AUTO 1 % (0-6); Hematocrit 30.7 % (33.0-51.0); Hemoglobin 9.7 g/dL (11.5-16.0); IMMATURE GRAN ABSOLUTE AUTO 0.03 K/mm3 (0.00-0.10); IMMATURE GRAN PERCENT AUTO 0 % (0-1); LYMPHOCYTES ABSOLUTE AUTO 1.43 K/mm3 (0.84-5.20); LYMPHOCYTES PERCENT AUTO 16 % (21-46); MONOCYTES ABSOLUTE AUTO 0.59 K/mm3 (0.16-1.47); MONOCYTES PERCENT AUTO 6 % (4-13); Mean Corpuscular HGB 30.4 pg (26.0-34.0); Mean Corpuscular HGB Conc 31.6 g/dL (31.5-36.5); Mean Corpuscular Volume 96 fL (80-100); Mean Platelet Volume 9.3 fL (9.1-12.4); NEUTROPHILS ABSOLUTE AUTO 6.95 K/mm3 (1.96-9.15); NEUTROPHILS PERCENT AUTO 76 % (41-73); Platelet Count 267 K/mm3 (150-400); RDW Coefficient Variation 13.7 % (11.7-14.2); RDW Standard Deviation 48.8 fL (35.1-46.3); Red Blood Cell Count 3.19 M/mm3 (3.80-5.20); White Blood Cell Count 9.17 K/mm3 (4.00-11.30)
[2021-02-12 11:30] LABS: Albumin/Globulin Ratio 0.9 (0.8-1.8); Bilirubin, Total 0.3 mg/dL (0.1-1.0); Bun/Creatinine Ratio 15.7 (12.0-20.0); Creatinine, Blood 2.1 mg/dL (0.40-1.00); Globulin, Blood 3.4 g/dL (2.2-4.0); Total Protein, Blood 6.4 g/dL (6.4-8.2)
[2021-02-12 12:30] LABS: Source, Urine Clean Catch
[2021-02-12 12:41] LABS: Appearance, Urine Cloudy (Clear); Bilirubin, Urine Neg (Neg); Blood, Urine 5+ (Neg); Color, Urine Yellow (P-Yellow); Glucose Qualitative, Urine Neg (Neg); Ketones, Urine Neg (Neg); Leukocyte Esterase, Urine 3+ (Neg); Nitrite, Urine Pos (Neg); Protein, Urine 3+ (Neg); Urobilinogen, Urine NORM (Normal)
[2021-02-12 12:54] LABS: Red Blood Cells, Urine TNTC /hpf (0-2); White Blood Cells, Urine TNTC /hpf (0-5)
[2021-02-12 12:55] LABS: Bacteria Many /hpf; Squamous Epithelial Cells Rare /hpf (Few)
[2021-02-12] MEDS ORDERED: CIPRO250 MG PO (13:22)
[2021-03-23] MEDS ORDERED: METO25ER PO (15:32)
[2021-03-23] MEDS ORDERED: Sanctura20 MG PO (15:33)
[2021-03-23] MEDS ORDERED: CALCIUM ACETAT667 M1 PO (15:35)
[2021-03-23] MEDS ORDERED: BUME2 PO (15:40)
[2021-03-23] MEDS ORDERED: IPRAT-ALBUT 0.5-3 ML INH (15:43)
[2021-03-23] MEDS ORDERED: CEFP200 PO (20:52)
[2021-03-23] MEDS ORDERED: AZIT250 PO (20:53)
[2021-03-24] MEDS ORDERED: Prednisone10 MG PO (14:30)
[2021-03-24] MEDS ORDERED: ENTRESTO 24 MG1 EACH PO (14:31)
[2021-03-24] MEDS ORDERED: METO50 PO (14:32)
== END 2021-02-12 13:45 | disposition home or self-care (01) ==
LOC: ER 10:09
PROVIDERS: Emergency Medicine
DX: N39.0 Urinary tract infection, site not specified (principal); J44.9 Chronic obstructive pulmonary disease, unspecified; E11.9 Type 2 diabetes mellitus without complications; I50.9 Heart failure, unspecified; I11.0 Hypertensive heart disease with heart failure; Z88.8 Allergy status to other drugs, medicaments and biological substances; Z79.01 Long term (current) use of anticoagulants; Z79.899 Other long term (current) drug therapy
CPT/HCPCS: 80053; 81001; 83605; 85025; 87077; 87086; 87186; 96374; 99282-25; A9270; J2550

== ENCOUNTER 2021-02-26 22:00 | Inpatient (IN) | payer MEDICARE, OTHER ==
[~2021-02-26] VITALS: Ht 160 cm; Wt 48.1 kg
[~2021-02-26 22:00] MED LIST changes: +CIPRO250 MG PO
[2021-02-26 22:07] LABS: PCO2 Arterial 34.1 mmHg (35-45); PO2 Arterial 165 mmHg (80-100); pH Blood Arterial 7.35 (7.35-7.45)
[2021-02-26 22:42] LABS: BASOPHILS ABSOLUTE AUTO 0.07 K/mm3 (0.00-0.23); BASOPHILS PERCENT AUTO 1 % (0-2); EOSINOPHILS ABSOLUTE AUTO 0.26 K/mm3 (0.00-0.68); EOSINOPHILS PERCENT AUTO 2 % (0-6); Hematocrit 30.6 % (33.0-51.0); Hemoglobin 9.5 g/dL (11.5-16.0); IMMATURE GRAN ABSOLUTE AUTO 0.09 K/mm3 (0.00-0.10); IMMATURE GRAN PERCENT AUTO 1 % (0-1); LYMPHOCYTES ABSOLUTE AUTO 2.96 K/mm3 (0.84-5.20); LYMPHOCYTES PERCENT AUTO 25 % (21-46); MONOCYTES ABSOLUTE AUTO 0.94 K/mm3 (0.16-1.47); MONOCYTES PERCENT AUTO 8 % (4-13); Mean Corpuscular HGB 30.3 pg (26.0-34.0); Mean Corpuscular Volume 98 fL (80-100); Mean Platelet Volume 9.3 fL (9.1-12.4); NEUTROPHILS ABSOLUTE AUTO 7.76 K/mm3 (1.96-9.15); NEUTROPHILS PERCENT AUTO 64 % (41-73); Platelet Count 289 K/mm3 (150-400); RDW Coefficient Variation 13.5 % (11.7-14.2); RDW Standard Deviation 47.8 fL (35.1-46.3); Red Blood Cell Count 3.14 M/mm3 (3.80-5.20); White Blood Cell Count 12.08 K/mm3 (4.00-11.30)
[2021-02-26] MEDS ORDERED: HYDR1TAB94 PO (22:42)
[2021-02-26] MEDS ORDERED: NITROGLYCERIN0.4 MG SL (22:43)
[2021-02-26] MEDS ORDERED: GUAI600T33 PO (22:43)
[2021-02-26] MEDS ORDERED: ONDA4 PO (22:44)
[2021-02-26] MEDS ORDERED: XANAX0.5 MG PO (22:44)
[2021-02-26] MEDS ORDERED: CEPH500 PO (22:45)
[2021-02-26 23:01] LABS: Albumin, Blood 3.2 g/dL (3.4-5.0); Albumin/Globulin Ratio 0.9 (0.8-1.8); Bilirubin, Total 0.3 mg/dL (0.1-1.0); Calcium, Blood 8.1 mg/dL (8.5-10.1); Creatinine, Blood 2.43 mg/dL (0.40-1.00); Globulin, Blood 3.6 g/dL (2.2-4.0); Potassium, Blood 4.1 mmol/L (3.5-5.5); Total Protein, Blood 6.8 g/dL (6.4-8.2); Troponin I 0.086 ng/mL (0.000-0.040)
[2021-02-26 23:10] LABS: SARS-Cov-2 (COVID-19) PCR, MMC NEGATIVE (NEGATIVE)
--- NOTE | 2021-02-27 00:35 | NUR ---
ADMISSION NOTE PT ADMITTED TO PCU 6 FROM ED. PT TRANSFERED FROM ED GURNEY TO BED WITHOUT ISSUE. PT CURRENTLY ON 2L NC, SPO2 >92%. PER PT, NORMALLY USES 2-3L NC PRN DURING SLEEP. BIPAP ON STANDBY AT BEDSIDE. DIALYSIS NURSE AT BEDSIDE, SETTING UP FOR DIALYSIS. VSS HR 80'S SR WITH PACS PER TELEMONITOR, SBP 130'S. PT DENIES PAIN WHEN NOT MOVING, STATES PAIN INCREASES WITH MOVEMENT. ABLE TO HELP TURN SELF. NEPHROSTOMY TO R SIDE, DRESSING C/D/I. IV SALINE LOCKED. PT ALERT AND ORIENTED, ANSWERING ALL ADMISSION QUESTIONS.
--- NOTE | 2021-02-27 05:50 | NUR ---
SHIFT SUMMARY PT RESTING COMFORTABLY IN BED. ALERT AND ORIENTED SINCE ARRIVAL TO UNIT. DENIES PAIN. ABLE TO REPOSITION SELF IN BED. 2.5L REMOVED DURING DIALYSIS THIS SHIFT. PT REMAINS ON 2L NC, DENIES BEING SOB; BIPAP AT BEDSIDE ON STANDBY IF NEEDED. PT WITH WEAKNESS TO EXTREMITIES X4, USES CANE TO AMBULATE AT BASELINE. CALL LIGHT WITHIN REACH, PT USES APPROPRIATELY.
[2021-02-27 06:42] LABS: BASOPHILS ABSOLUTE AUTO 0.02 K/mm3 (0.00-0.23); BASOPHILS PERCENT AUTO 0 % (0-2); EOSINOPHILS PERCENT AUTO 0 % (0-6); Hemoglobin 9.4 g/dL (11.5-16.0); IMMATURE GRAN ABSOLUTE AUTO 0.06 K/mm3 (0.00-0.10); IMMATURE GRAN PERCENT AUTO 1 % (0-1); LYMPHOCYTES ABSOLUTE AUTO 0.55 K/mm3 (0.84-5.20); LYMPHOCYTES PERCENT AUTO 6 % (21-46); MONOCYTES ABSOLUTE AUTO 0.12 K/mm3 (0.16-1.47); MONOCYTES PERCENT AUTO 1 % (4-13); Mean Corpuscular HGB 30.4 pg (26.0-34.0); Mean Corpuscular HGB Conc 32.4 g/dL (31.5-36.5); Mean Corpuscular Volume 94 fL (80-100); NEUTROPHILS ABSOLUTE AUTO 8.82 K/mm3 (1.96-9.15); NEUTROPHILS PERCENT AUTO 92 % (41-73); Platelet Count 246 K/mm3 (150-400); RDW Coefficient Variation 13.4 % (11.7-14.2); RDW Standard Deviation 45.3 fL (35.1-46.3); Red Blood Cell Count 3.09 M/mm3 (3.80-5.20); White Blood Cell Count 9.57 K/mm3 (4.00-11.30)
[2021-02-27 06:58] LABS: Albumin, Blood 3.2 g/dL (3.4-5.0); Albumin/Globulin Ratio 0.9 (0.8-1.8); Bilirubin, Total 0.4 mg/dL (0.1-1.0); Bun/Creatinine Ratio 11.6 (12.0-20.0); Calcium, Blood 8.1 mg/dL (8.5-10.1); Creatinine, Blood 1.64 mg/dL (0.40-1.00); Globulin, Blood 3.7 g/dL (2.2-4.0); Potassium, Blood 3.2 mmol/L (3.5-5.5); Total Protein, Blood 6.9 g/dL (6.4-8.2); Troponin I 0.091 ng/mL (0.000-0.040)
--- NOTE | 2021-02-27 07:30 | NUR ---
INITIAL ASSESSMENT: PT IS RESTING IN BED ON HER LEFT SIDE, SHE IS ALERT AND OX3. PT DENIES CHEST PAIN AT THIS TIME. HR IRREG, A-FIB 90S-LOW 100S. LS DIM IN THE BASES, BIOX WNL ON 2L VIA NC. PT STATES SHE WEARS 2-3L HOME O2 AT HS PRN AT HOME. BT+. PT HAS PERMACATH TO RIGHT UPPER CHEST WITH DRESSING, CDI. FISTULA TO LEFT UPPER ARM, + BRUIT/THRILL. NEPHROSTOMY TO RIGHT FLANK WITH URESIL DRAINAGE BAG WITH GAUZE DRESSING CDI-PT STATES DRESSING CHANGES Q FRIDAY. PPP. PT HAS 1+ PITTING EDEMA TO LLE. VSS. PT DENIES OTHER NEEDS AT THIS TIME, CALL LIGHT IN REACH, WILL CONTINUE TO MONITOR. PLAN FOR DIALYSIS AT 9AM TODAY.
--- NOTE | 2021-02-27 09:00 | NUR ---
PT REQUESTS THAT AM MEDS BE GIVEN POST DIALYSIS. PT TAKEN DOWN TO DIALYSIS VIA BED.
--- NOTE | 2021-02-27 12:00 | NUR ---
PT RETURED FROM DIALYSIS. 3L REMOVED PER FRUIT I FARMWORKER. AM PO MEDS GIVEN. PT DENIES OTHER NEEDS AT THIS TIME. CALL LIGHT IN REACH, WILL CONTINUE TO MONITOR.
[2021-02-27 14:30] LABS: Troponin I 0.083 ng/mL (0.000-0.040)
--- NOTE | 2021-02-27 16:30 | NUR ---
PATIENT IS RESTING COMFORTABLY IN BED. VSS. DAUGHTER IN LAW AT BEDSIDE. PATIENT AND DAUGHTER IN LAW ASKING ABOUT CHECKING PATIENTS FISTULA THAT WAS RECENTLY PLACED, THEY WERE SUPPOSED TO HAVE A F/U ULTRASOUND AND THAT HAS NOT BEEN DONE YET. I TOLD THEM WE COULD POSSIBLY CHECK WITH DR. FITZPATRICK TOMORROW TO SEE IF HE WANTS TO LOOK AT IT. PT DENIES OTHER NEEDS AT THIS TIME. CALL LIGHT IN REACH. WILL CONTINUE TO MONITOR.
--- NOTE | 2021-02-27 18:39 | NUR ---
PATIENT HAS DONE WELL T/O THE SHIFT. SHE WAS DIALYZED TODAY AND 3L WAS REMOVED, PT IS BREATHING MUCH BETTER AND EDEMA IS DOWN. VSS. THROUGH OUT THE SHIFT. PLAN TO HAVE RIGHT NEPHROSTOMY REMOVED TOMORROW LATE MORNING, NPO AFTER MIDNIGHT. NO ACUTE CHANGES THIS SHIFT. WILL REPORT TO ONCOMING RN.
[2021-02-28 03:50] LABS: Hematocrit 27.2 % (33.0-51.0); Hemoglobin 8.7 g/dL (11.5-16.0)
[2021-02-28 04:08] LABS: Albumin, Blood 2.9 g/dL (3.4-5.0); Anion Gap 5 mmol/L (6-16); Blood Urea Nitrogen 31 mg/dL (8-24); Bun/Creatinine Ratio 12.6 (12.0-20.0); CO2, Blood 27 mmol/L (21-32); Chloride, Blood 102 mmol/L (98-108); Creatinine, Blood 2.47 mg/dL (0.40-1.00); Glomerular Filtration Rate 20 (60-); Glucose, Blood 98 mg/dL (70-99); Magnesium, Blood 1.9 mg/dL (1.6-2.4); Phosphorus, Blood 3.9 mg/dL (2.5-4.9); Sodium, Blood 134 mmol/L (136-145)
--- NOTE | 2021-02-28 05:10 | NUR ---
SHIFT SUMMARY PT AOX4 T/O SHIFT. VSS. ROOM AIR. TELE SINUS RHYTHM 60'S-70'S W/PAC'S. BREATHING EVEN AND UNLABORED AT REST, SLIGHT DYSPNEA WITH WALKING TO BATHROOM, OTHERWISE INDEPENDENT AND WALKS W/O DIFFICULTY AND LITTLE ASSISTANCE. KRYSTLE HELD AND PT NPO AFTER MIDNIGHT DUE TO PROCEDURE TO HAVE R NEPHROSTOMY REMOVED LATER THIS AM. IV IN R ARM SALINE LOCKED.
--- NOTE | 2021-02-28 08:00 | NUR ---
pt laying in bed awake a/ox3, pleasant and coopertive with care, follows commands well, denies complaints, states she slept well last night, and feels good this am, lungs are clear t/o, resp even and unlabored, no cough noted, hrr, tele in place running sr with pvc's per monitor, see strip, no edema noted, ppp+1, cap refill <3sec, vs stable, afebrile, iv site is clear and patent, btx4, abd flat soft nontender, voids once a night per pt, and has a urostomy tube that puts out some urine, plan is for this to be removed today, skin c/w/d, frail, with scatterred bruising, maew, ambulated to bathroom and gave herself a towel bath, permacath noted to right chest wall, and fistula to left upper arm, bruit noted, joce, call light in reach, will have dialysis first then procedure to remove tube.
--- NOTE | 2021-02-28 15:49 | NUR ---
PT RETURNED TO ROOM PCU 6 FROM PROCEDURE. PT AWAKE AND ALERT, VSS DOCUMENTED. PT DENIES PAIN OR DISCOMFORT AT THIS TIME. PT PROVIDED WITH MEAL, NO DIFFICULTIES WITH SWALLOWING NOTED. CALL LIGHT IN REACH. NO OTHER NEEDS IDENTIFIED AT THIS TIME. PRIMARY RN NISHA UPDATED.
--- NOTE | 2021-02-28 19:22 | NUR ---
pt has been discharged after having her nephrostomy tube changed and dialysis this am, went over instructions with her, she verbalized understanding, iv removed intact, she has all her belongings, and called her daughter to pick her up. call light in reach.
--- NOTE | 2021-02-28 19:37 | NUR ---
DC SUMMARY PT AOX4 ON DEPART, DC INSTRUCTIONS WITH PT. PT ESCORTED OUT TO [facility] BY [facility] ACCOMPANIED BY DAUGHTER OF PT. PT BELONGINGS WITH PT.
[2021-03-23] MEDS ORDERED: METO25ER PO (15:32)
[2021-03-23] MEDS ORDERED: Sanctura20 MG PO (15:33)
[2021-03-23] MEDS ORDERED: CALCIUM ACETAT667 M1 PO (15:35)
[2021-03-23] MEDS ORDERED: BUME2 PO (15:40)
[2021-03-23] MEDS ORDERED: IPRAT-ALBUT 0.5-3 ML INH (15:43)
[2021-03-23] MEDS ORDERED: CEFP200 PO (20:52)
[2021-03-23] MEDS ORDERED: AZIT250 PO (20:53)
[2021-03-24] MEDS ORDERED: Prednisone10 MG PO (14:30)
[2021-03-24] MEDS ORDERED: ENTRESTO 24 MG1 EACH PO (14:31)
[2021-03-24] MEDS ORDERED: METO50 PO (14:32)
== END 2021-02-28 19:26 | disposition home or self-care (01) | DRG 291 ==
LOC: ER 22:00 → PCU 23:35
PROVIDERS: Emergency Medicine; Internal Medicine Nephrology; ADMIT Internal Medicine
PROC: 5A1D70Z Performance of Urinary Filtration, Intermittent, Less than 6 Hours Per Day (ICD-10-PCS; principal; 2021-02-26)
PROC: 5A09357 Assistance with Respiratory Ventilation, Less than 24 Consecutive Hours, Continuous Positive Airway Pressure (ICD-10-PCS; 2021-02-26)
PROC: 0T9330Z Drainage of Right Kidney Pelvis with Drainage Device, Percutaneous Approach (ICD-10-PCS; 2021-02-28)
PROC: 0TP5X0Z Removal of Drainage Device from Kidney, External Approach (ICD-10-PCS; 2021-02-28)
PROC: BT111ZZ Fluoroscopy of Right Kidney using Low Osmolar Contrast (ICD-10-PCS; 2021-02-28)
DX: I13.2 Hypertensive heart and chronic kidney disease with heart failure and with stage 5 chronic kidney disease, or end stage renal disease (principal); N18.6 End stage renal disease; I50.33 Acute on chronic diastolic (congestive) heart failure; J96.21 Acute and chronic respiratory failure with hypoxia; E43 Unspecified severe protein-calorie malnutrition; C90.00 Multiple myeloma not having achieved remission; E87.1 Hypo-osmolality and hyponatremia; N13.30 Unspecified hydronephrosis; I24.8 Other forms of acute ischemic heart disease; E87.2 Acidosis; R00.1 Bradycardia, unspecified; J44.9 Chronic obstructive pulmonary disease, unspecified; E87.6 Hypokalemia; Z20.822 Contact with and (suspected) exposure to COVID-19; E88.09 Other disorders of plasma-protein metabolism, not elsewhere classified; D50.9 Iron deficiency anemia, unspecified; I27.20 Pulmonary hypertension, unspecified; N13.9 Obstructive and reflux uropathy, unspecified; D63.1 Anemia in chronic kidney disease; D72.829 Elevated white blood cell count, unspecified; E11.22 Type 2 diabetes mellitus with diabetic chronic kidney disease; F17.210 Nicotine dependence, cigarettes, uncomplicated; Z91.09 Other allergy status, other than to drugs and biological substances; Z79.899 Other long term (current) drug therapy; Z79.01 Long term (current) use of anticoagulants; Z99.2 Dependence on renal dialysis; Z98.890 Other specified postprocedural states; Z99.81 Dependence on supplemental oxygen; Z93.6 Other artificial openings of urinary tract status
CPT/HCPCS: 36415; 36600; 50435; 71045; 80048; 80053; 80069; 82550; 82803; 82947; 83605; 83735; 83880; 84484; 85007; 85014; 85018; 85025; 85027; 85610; 93005; 93010; 94640; 94644; 94660; 94760; 94762; 96374; 99152; 99153; 99285-25; A9270; C1729; C1769; J0881; J1940; J2250; J3010; J7050; Q9967; U0004

== ENCOUNTER 2021-03-08 07:06 | Emergency (ER) | payer OTHER ==
[~2021-03-08] VITALS: Ht 160 cm; Wt 47.6 kg
[~2021-03-08 07:06] MED LIST changes: +HYDR1TAB94 PO; +NITROGLYCERIN0.4 MG SL; +XANAX0.5 MG PO
[2021-03-08 08:11] LABS: BASOPHILS ABSOLUTE AUTO 0.06 K/mm3 (0.00-0.23); BASOPHILS PERCENT AUTO 1 % (0-2); EOSINOPHILS ABSOLUTE AUTO 0.42 K/mm3 (0.00-0.68); EOSINOPHILS PERCENT AUTO 4 % (0-6); Hemoglobin 9.7 g/dL (11.5-16.0); IMMATURE GRAN ABSOLUTE AUTO 0.06 K/mm3 (0.00-0.10); IMMATURE GRAN PERCENT AUTO 1 % (0-1); LYMPHOCYTES ABSOLUTE AUTO 2.16 K/mm3 (0.84-5.20); LYMPHOCYTES PERCENT AUTO 19 % (21-46); MONOCYTES ABSOLUTE AUTO 1.38 K/mm3 (0.16-1.47); MONOCYTES PERCENT AUTO 12 % (4-13); Mean Corpuscular HGB 30.4 pg (26.0-34.0); Mean Corpuscular HGB Conc 31.3 g/dL (31.5-36.5); Mean Corpuscular Volume 97 fL (80-100); NEUTROPHILS ABSOLUTE AUTO 7.55 K/mm3 (1.96-9.15); NEUTROPHILS PERCENT AUTO 65 % (41-73); Platelet Count 285 K/mm3 (150-400); RDW Standard Deviation 49.2 fL (35.1-46.3); Red Blood Cell Count 3.19 M/mm3 (3.80-5.20); White Blood Cell Count 11.63 K/mm3 (4.00-11.30)
[2021-03-08 08:58] LABS: Albumin, Blood 2.8 g/dL (3.4-5.0); Albumin/Globulin Ratio 0.8 (0.8-1.8); Bilirubin, Total 0.4 mg/dL (0.1-1.0); Bun/Creatinine Ratio 13.6 (12.0-20.0); Calcium, Blood 8.1 mg/dL (8.5-10.1); Creatinine, Blood 2.73 mg/dL (0.40-1.00); Globulin, Blood 3.4 g/dL (2.2-4.0); Potassium, Blood 4.4 mmol/L (3.5-5.5); Total Protein, Blood 6.2 g/dL (6.4-8.2); Troponin I 0.055 ng/mL (0.000-0.040)
[2021-03-08] MEDS ORDERED: PRED20 PO (09:33)
[2021-03-23] MEDS ORDERED: METO25ER PO (15:32)
[2021-03-23] MEDS ORDERED: Sanctura20 MG PO (15:33)
[2021-03-23] MEDS ORDERED: CALCIUM ACETAT667 M1 PO (15:35)
[2021-03-23] MEDS ORDERED: BUME2 PO (15:40)
[2021-03-23] MEDS ORDERED: IPRAT-ALBUT 0.5-3 ML INH (15:43)
[2021-03-23] MEDS ORDERED: CEFP200 PO (20:52)
[2021-03-23] MEDS ORDERED: AZIT250 PO (20:53)
[2021-03-24] MEDS ORDERED: Prednisone10 MG PO (14:30)
[2021-03-24] MEDS ORDERED: ENTRESTO 24 MG1 EACH PO (14:31)
[2021-03-24] MEDS ORDERED: METO50 PO (14:32)
== END 2021-03-08 12:17 | disposition home or self-care (01) ==
LOC: ER 07:06
PROVIDERS: Emergency Medicine
DX: J44.1 Chronic obstructive pulmonary disease with (acute) exacerbation (principal); R79.89 Other specified abnormal findings of blood chemistry; E11.22 Type 2 diabetes mellitus with diabetic chronic kidney disease; I13.2 Hypertensive heart and chronic kidney disease with heart failure and with stage 5 chronic kidney disease, or end stage renal disease; N18.6 End stage renal disease; F17.210 Nicotine dependence, cigarettes, uncomplicated; Z99.2 Dependence on renal dialysis; Z88.8 Allergy status to other drugs, medicaments and biological substances; Z79.899 Other long term (current) drug therapy
CPT/HCPCS: 71045; 80053; 84484; 85025; 93005; 93010; 94640; 96374; 99285-25; J2930

== ENCOUNTER 2021-03-19 08:00 | Emergency (ER) | payer OTHER ==
[~2021-03-19] VITALS: Ht 160 cm; Wt 47.6 kg
[2021-03-19] MEDS ORDERED: ALBU90OI INH (08:41)
[2021-03-19] MEDS ORDERED: Aspir 8181 MG PO (08:41)
[2021-03-19 08:57] LABS: BASOPHILS ABSOLUTE AUTO 0.02 K/mm3 (0.00-0.23); BASOPHILS PERCENT AUTO 0 % (0-2); EOSINOPHILS ABSOLUTE AUTO 0.08 K/mm3 (0.00-0.68); EOSINOPHILS PERCENT AUTO 1 % (0-6); Hematocrit 32.8 % (33.0-51.0); Hemoglobin 10.3 g/dL (11.5-16.0); IMMATURE GRAN ABSOLUTE AUTO 0.12 K/mm3 (0.00-0.10); IMMATURE GRAN PERCENT AUTO 1 % (0-1); LYMPHOCYTES ABSOLUTE AUTO 2.03 K/mm3 (0.84-5.20); LYMPHOCYTES PERCENT AUTO 14 % (21-46); MONOCYTES ABSOLUTE AUTO 0.81 K/mm3 (0.16-1.47); MONOCYTES PERCENT AUTO 5 % (4-13); Mean Corpuscular HGB 29.7 pg (26.0-34.0); Mean Corpuscular HGB Conc 31.4 g/dL (31.5-36.5); Mean Corpuscular Volume 95 fL (80-100); Mean Platelet Volume 9.1 fL (9.1-12.4); NEUTROPHILS ABSOLUTE AUTO 12.01 K/mm3 (1.96-9.15); NEUTROPHILS PERCENT AUTO 80 % (41-73); Platelet Count 329 K/mm3 (150-400); RDW Coefficient Variation 14.4 % (11.7-14.2); RDW Standard Deviation 49.1 fL (35.1-46.3); Red Blood Cell Count 3.47 M/mm3 (3.80-5.20); White Blood Cell Count 15.07 K/mm3 (4.00-11.30)
[2021-03-19 09:36] LABS: Albumin, Blood 3.1 g/dL (3.4-5.0); Albumin/Globulin Ratio 0.8 (0.8-1.8); Bilirubin, Total 0.3 mg/dL (0.1-1.0); Bun/Creatinine Ratio 13.9 (12.0-20.0); Calcium, Blood 7.9 mg/dL (8.5-10.1); Creatinine, Blood 2.66 mg/dL (0.40-1.00); Globulin, Blood 3.7 g/dL (2.2-4.0); Potassium, Blood 3.5 mmol/L (3.5-5.5); Total Protein, Blood 6.8 g/dL (6.4-8.2); Troponin I 0.078 ng/mL (0.000-0.040)
[2021-03-19] MEDS ORDERED: Toprol Xl25 MG PO (10:47)
[2021-03-20] MEDS ORDERED: Zithromax250 MG PO (16:10)
[2021-03-20] MEDS ORDERED: CEFP200 PO (16:10)
[2021-03-23] MEDS ORDERED: METO25ER PO (15:32)
[2021-03-23] MEDS ORDERED: Sanctura20 MG PO (15:33)
[2021-03-23] MEDS ORDERED: CALCIUM ACETAT667 M1 PO (15:35)
[2021-03-23] MEDS ORDERED: BUME2 PO (15:40)
[2021-03-23] MEDS ORDERED: IPRAT-ALBUT 0.5-3 ML INH (15:43)
[2021-03-23] MEDS ORDERED: CEFP200 PO (20:52)
[2021-03-23] MEDS ORDERED: AZIT250 PO (20:53)
[2021-03-24] MEDS ORDERED: Prednisone10 MG PO (14:30)
[2021-03-24] MEDS ORDERED: ENTRESTO 24 MG1 EACH PO (14:31)
[2021-03-24] MEDS ORDERED: METO50 PO (14:32)
== END 2021-03-19 11:27 | disposition home or self-care (01) ==
LOC: ER 08:00
PROVIDERS: Emergency Medicine
DX: I13.2 Hypertensive heart and chronic kidney disease with heart failure and with stage 5 chronic kidney disease, or end stage renal disease (principal); N18.6 End stage renal disease; I50.9 Heart failure, unspecified; I16.0 Hypertensive urgency; J44.9 Chronic obstructive pulmonary disease, unspecified; E11.22 Type 2 diabetes mellitus with diabetic chronic kidney disease; F17.210 Nicotine dependence, cigarettes, uncomplicated; Z79.899 Other long term (current) drug therapy; Z79.82 Long term (current) use of aspirin; Z88.8 Allergy status to other drugs, medicaments and biological substances
CPT/HCPCS: 36415; 71045; 80053; 83880; 84484; 85025; 93005; 93010; 94640; 96374; 99285-25; A9270

== ENCOUNTER 2021-03-20 14:15 | Emergency (ER) | payer OTHER ==
[~2021-03-20] VITALS: Ht 160 cm; Wt 47.6 kg
[~2021-03-20 14:15] MED LIST changes: +ALBU90OI INH; +Aspir 8181 MG PO; +Toprol Xl25 MG PO
[2021-03-20 15:19] LABS: Albumin, Blood 2.7 g/dL (3.4-5.0); Albumin/Globulin Ratio 0.8 (0.8-1.8); Bilirubin, Total 0.2 mg/dL (0.1-1.0); Bun/Creatinine Ratio 14.7 (12.0-20.0); Calcium, Blood 7.6 mg/dL (8.5-10.1); Creatinine, Blood 2.72 mg/dL (0.40-1.00); Globulin, Blood 3.4 g/dL (2.2-4.0); Potassium, Blood 3.5 mmol/L (3.5-5.5); Total Protein, Blood 6.1 g/dL (6.4-8.2)
[2021-03-20 15:38] LABS: BASOPHILS ABSOLUTE AUTO 0.02 K/mm3 (0.00-0.23); BASOPHILS PERCENT AUTO 0 % (0-2); EOSINOPHILS ABSOLUTE AUTO 0.08 K/mm3 (0.00-0.68); EOSINOPHILS PERCENT AUTO 1 % (0-6); Hematocrit 28.8 % (33.0-51.0); Hemoglobin 9.2 g/dL (11.5-16.0); IMMATURE GRAN ABSOLUTE AUTO 0.09 K/mm3 (0.00-0.10); IMMATURE GRAN PERCENT AUTO 1 % (0-1); LYMPHOCYTES ABSOLUTE AUTO 1.77 K/mm3 (0.84-5.20); LYMPHOCYTES PERCENT AUTO 12 % (21-46); MONOCYTES ABSOLUTE AUTO 0.75 K/mm3 (0.16-1.47); MONOCYTES PERCENT AUTO 5 % (4-13); Mean Corpuscular HGB 28.9 pg (26.0-34.0); Mean Corpuscular HGB Conc 31.9 g/dL (31.5-36.5); Mean Corpuscular Volume 91 fL (80-100); Mean Platelet Volume 8.8 fL (9.1-12.4); NEUTROPHILS ABSOLUTE AUTO 11.68 K/mm3 (1.96-9.15); NEUTROPHILS PERCENT AUTO 81 % (41-73); Platelet Count 298 K/mm3 (150-400); RDW Standard Deviation 46.5 fL (35.1-46.3); Red Blood Cell Count 3.18 M/mm3 (3.80-5.20); White Blood Cell Count 14.39 K/mm3 (4.00-11.30)
[2021-03-20] MEDS ORDERED: Zithromax250 MG PO (16:10)
[2021-03-20] MEDS ORDERED: CEFP200 PO (16:10)
[2021-03-20 16:28] LABS: Source, Urine Catheter
[2021-03-20 16:39] LABS: Appearance, Urine Hazy (Clear); Bilirubin, Urine Neg (Neg); Blood, Urine 5+ (Neg); Color, Urine Yellow (P-Yellow); Glucose Qualitative, Urine Neg (Neg); Ketones, Urine Neg (Neg); Leukocyte Esterase, Urine 3+ (Neg); Nitrite, Urine Neg (Neg); Protein, Urine 3+ (Neg); Specific Gravity, Urine 1.005 (1.003-1.022); Urobilinogen, Urine NORM (Normal)
[2021-03-20 16:42] LABS: White Blood Cells, Urine 50-100 /hpf (0-5)
[2021-03-20 16:43] LABS: Bacteria Many /hpf; Squamous Epithelial Cells Few /hpf (Few)
== END 2021-03-20 17:35 | disposition home or self-care (01) ==
LOC: ER 14:15
PROVIDERS: Emergency Medicine; Physician Assistant
DX: J18.9 Pneumonia, unspecified organism (principal); N39.0 Urinary tract infection, site not specified; I13.2 Hypertensive heart and chronic kidney disease with heart failure and with stage 5 chronic kidney disease, or end stage renal disease; I50.9 Heart failure, unspecified; E11.22 Type 2 diabetes mellitus with diabetic chronic kidney disease; N18.6 End stage renal disease; J44.0 Chronic obstructive pulmonary disease with (acute) lower respiratory infection; Z99.2 Dependence on renal dialysis; Z79.899 Other long term (current) drug therapy; Z79.52 Long term (current) use of systemic steroids; F17.210 Nicotine dependence, cigarettes, uncomplicated
CPT/HCPCS: 36415; 71045; 80053; 81001; 83880; 84145; 85025; 87077; 87086; 87186; 93005; 93010; 99285-25; A9270

== ENCOUNTER 2021-03-23 14:13 | Observation (INO) | payer OTHER ==
[~2021-03-23] VITALS: Ht 160 cm; Wt 42.2 kg
[~2021-03-23 14:13] MED LIST changes: +Zithromax250 MG PO
[2021-03-23 15:25] LABS: BASOPHILS ABSOLUTE AUTO 0.04 K/mm3 (0.00-0.23); BASOPHILS PERCENT AUTO 0 % (0-2); EOSINOPHILS ABSOLUTE AUTO 0.09 K/mm3 (0.00-0.68); EOSINOPHILS PERCENT AUTO 1 % (0-6); Hematocrit 37.3 % (33.0-51.0); Hemoglobin 11.9 g/dL (11.5-16.0); IMMATURE GRAN ABSOLUTE AUTO 0.09 K/mm3 (0.00-0.10); IMMATURE GRAN PERCENT AUTO 1 % (0-1); LYMPHOCYTES ABSOLUTE AUTO 1.79 K/mm3 (0.84-5.20); LYMPHOCYTES PERCENT AUTO 14 % (21-46); MONOCYTES ABSOLUTE AUTO 0.65 K/mm3 (0.16-1.47); MONOCYTES PERCENT AUTO 5 % (4-13); Mean Corpuscular HGB 29.1 pg (26.0-34.0); Mean Corpuscular HGB Conc 31.9 g/dL (31.5-36.5); Mean Corpuscular Volume 91 fL (80-100); Mean Platelet Volume 9.7 fL (9.1-12.4); NEUTROPHILS ABSOLUTE AUTO 9.87 K/mm3 (1.96-9.15); NEUTROPHILS PERCENT AUTO 79 % (41-73); Platelet Count 367 K/mm3 (150-400); RDW Coefficient Variation 13.7 % (11.7-14.2); RDW Standard Deviation 45.2 fL (35.1-46.3); Red Blood Cell Count 4.09 M/mm3 (3.80-5.20); White Blood Cell Count 12.53 K/mm3 (4.00-11.30)
[2021-03-23] MEDS ORDERED: METO25ER PO ×2 (15:32)
[2021-03-23] MEDS ORDERED: Sanctura20 MG PO ×2 (15:33)
[2021-03-23] MEDS ORDERED: Chantix1 MG PO (15:34)
[2021-03-23] MEDS ORDERED: CALCIUM ACETAT667 M1 PO ×2 (15:35)
[2021-03-23] MEDS ORDERED: BUME2 PO ×2 (15:40)
[2021-03-23] MEDS ORDERED: IPRAT-ALBUT 0.5-3 ML INH ×2 (15:43)
[2021-03-23 15:45] LABS: Albumin, Blood 3.3 g/dL (3.4-5.0); Albumin/Globulin Ratio 0.7 (0.8-1.8); Bilirubin, Total 0.5 mg/dL (0.1-1.0); Bun/Creatinine Ratio 13.1 (12.0-20.0); Calcium, Blood 8.6 mg/dL (8.5-10.1); Creatinine, Blood 1.3 mg/dL (0.40-1.00); Globulin, Blood 4.5 g/dL (2.2-4.0); Total Protein, Blood 7.8 g/dL (6.4-8.2); Troponin I 0.151 ng/mL (0.000-0.040)
[2021-03-23 16:38] LABS: International Normalized Ratio 1.01; Prothrombin Time Results 10.9 Sec (9.7-11.5)
[2021-03-23] MEDS ORDERED: CEFP200 PO ×2 (20:52)
[2021-03-23] MEDS ORDERED: AZIT250 PO ×2 (20:53)
--- NOTE | 2021-03-23 23:37 | NUR ---
ADMIT NOTE PT ARRIVED TO PCU FROM ED AT APPROX 2044. PT AMBULATED FROM ED STRETCHER TO PCU BED INDEPENDENTLY. PT A&OX4, PLEASANT. SP02>92% ON 3L NC. DYSPNEA W/ EXERTION BUT ABLE TO STAND AND REMOVE CLOTHING/TRANSFER W/ MINIMAL ISSUE. TELEMETRY READ AFIB, HR 100'S. AT APPROX 2130 PT CONVERTED TO NSR, HR 70'S. PT ORIENTED TO CALL LIGHT, ROOM. BED IN LOW POSITION. PT CURRENTLY SLEEPING IN ROOM.
[2021-03-24 04:24] LABS: Calcium, Blood 7.6 mg/dL (8.5-10.1); Creatinine, Blood 2.69 mg/dL (0.40-1.00)
--- NOTE | 2021-03-24 06:04 | NUR ---
SHIFT SUMMARY NO ACUTE CHANGES THIS SHIFT. PT A&OX4. SP02>92% ON 3L NC. DYSPNEA W/ EXERTION. TELEEMTRY READS NSR, HR 70'S. PT HAS NEPHROSTOMY DRAINING TO GRAVITY. PT SLEPT MOST OF NIGHT. CALL LIGHT IN REACH. WILL GIVE REPORT TO ONCOMING NURSE.
--- NOTE | 2021-03-24 08:01 | NUR ---
pt laying in bed awake a/ox3, pleasant and cooperative with care, follows commands well, denies pain, states she feels pretty good, lungs are clear, dim t/o, resp even and unlabored, no cough noted, is on 3 liters of o2 at [place], no cough noted, hrr, tele in place running sr per monitor, see strip, no edema noted, ppp+faint, nephrostomy tube to left flank, skin c/w/d, joce dickey, call light in reach.
[2021-03-24] MEDS ORDERED: Prednisone10 MG PO ×2 (14:30)
[2021-03-24] MEDS ORDERED: ENTRESTO 24 MG1 EACH PO ×2 (14:31)
[2021-03-24] MEDS ORDERED: METO50 PO ×2 (14:32)
--- NOTE | 2021-03-24 14:51 | NUR ---
pt will be discharged today, Dr. Jiang added some medication changes. furnace filler ambulated pt to bathroom. call light in reach.
--- NOTE | 2021-03-24 15:46 | NUR ---
pt has been discharged to home, new scripts called into [facility] in [place], iv removed intact, went over new medications and follow up appts. will have dialysis on friday. left via wheelchair with all her belongings with data report analyst in attendence.
== END 2021-03-24 15:36 | disposition home or self-care (01) ==
LOC: ER 14:13 → PCU 14:14
PROVIDERS: Emergency Medicine; ADMIT Internal Medicine
DX: J96.21 Acute and chronic respiratory failure with hypoxia (principal); I48.91 Unspecified atrial fibrillation; J44.9 Chronic obstructive pulmonary disease, unspecified; I13.2 Hypertensive heart and chronic kidney disease with heart failure and with stage 5 chronic kidney disease, or end stage renal disease; N18.6 End stage renal disease; I50.32 Chronic diastolic (congestive) heart failure; E11.22 Type 2 diabetes mellitus with diabetic chronic kidney disease; D63.1 Anemia in chronic kidney disease; F17.210 Nicotine dependence, cigarettes, uncomplicated; Z99.2 Dependence on renal dialysis; Z79.82 Long term (current) use of aspirin; Z79.01 Long term (current) use of anticoagulants
CPT/HCPCS: 36415; 71045; 80048; 80053; 83880; 84484; 85025; 85610; 93005; 93010; 94640; 94664; 94667; 94760; 99285-25; A9270; G0257; G0378

== ENCOUNTER → 2021-03-30 | Outpatient (CLI) | payer OTHER ==
[~2021-03-30] MED LIST changes: +AZIT250 PO; +BUME2 PO; +CALCIUM ACETAT667 M1 PO; +Chantix1 MG PO; +ENTRESTO 24 MG1 EACH PO; +METO25ER PO; +METO50 PO; +Prednisone10 MG PO
[2021-03-30 16:08] LABS: Bilirubin, Urine Neg (Neg); Blood, Urine 5+ (Neg); Glucose Qualitative, Urine Neg (Neg); Ketones, Urine 1+ (Neg); Leukocyte Esterase, Urine 3+ (Neg); Nitrite, Urine Neg (Neg); Protein, Urine 4+ (Neg); Urobilinogen, Urine NORM (Normal)
[2021-03-30 16:19] LABS: Appearance, Urine Turbid (Clear); Bacteria Few /hpf; Color, Urine Red (P-Yellow); Red Blood Cells, Urine TNTC /hpf (0-2); Squamous Epithelial Cells Not Seen /hpf (Few); White Blood Cells, Urine TNTC /hpf (0-5); Yeast/Fungi Urine Mod /hpf
== END | disposition home or self-care (01) ==
LOC: LAB SHORT 15:00 → LAB 15:00
PROVIDERS: Family Medicine
DX: N39.0 Urinary tract infection, site not specified (principal); R82.90 Unspecified abnormal findings in urine; Z93.6 Other artificial openings of urinary tract status
CPT/HCPCS: 81001; 87077; 87086; 87186

== ENCOUNTER 2021-04-05 16:36 | Emergency (ER) | payer OTHER ==
[~2021-04-05] VITALS: Ht 160 cm; Wt 47.6 kg
[2021-04-05 17:24] LABS: BASOPHILS ABSOLUTE AUTO 0.03 K/mm3 (0.00-0.23); BASOPHILS PERCENT AUTO 0 % (0-2); EOSINOPHILS ABSOLUTE AUTO 0.02 K/mm3 (0.00-0.68); EOSINOPHILS PERCENT AUTO 0 % (0-6); Hematocrit 35.3 % (33.0-51.0); Hemoglobin 11.7 g/dL (11.5-16.0); IMMATURE GRAN PERCENT AUTO 2 % (0-1); LYMPHOCYTES ABSOLUTE AUTO 1.02 K/mm3 (0.84-5.20); LYMPHOCYTES PERCENT AUTO 6 % (21-46); MONOCYTES ABSOLUTE AUTO 0.27 K/mm3 (0.16-1.47); MONOCYTES PERCENT AUTO 2 % (4-13); Mean Corpuscular HGB 28.8 pg (26.0-34.0); Mean Corpuscular HGB Conc 33.1 g/dL (31.5-36.5); Mean Corpuscular Volume 87 fL (80-100); Mean Platelet Volume 9.1 fL (9.1-12.4); NEUTROPHILS ABSOLUTE AUTO 14.24 K/mm3 (1.96-9.15); NEUTROPHILS PERCENT AUTO 90 % (41-73); Platelet Count 398 K/mm3 (150-400); RDW Coefficient Variation 14.8 % (11.7-14.2); RDW Standard Deviation 46.5 fL (35.1-46.3); Red Blood Cell Count 4.06 M/mm3 (3.80-5.20); White Blood Cell Count 15.88 K/mm3 (4.00-11.30)
[2021-04-05 17:54] LABS: Albumin, Blood 3.1 g/dL (3.4-5.0); Albumin/Globulin Ratio 0.8 (0.8-1.8); Bilirubin, Total 0.6 mg/dL (0.1-1.0); Calcium, Blood 7.8 mg/dL (8.5-10.1); Creatinine, Blood 2.72 mg/dL (0.40-1.00); Globulin, Blood 3.9 g/dL (2.2-4.0); Potassium, Blood 3.7 mmol/L (3.5-5.5)
== END 2021-04-05 21:47 | disposition home or self-care (01) ==
LOC: ER 16:36
PROVIDERS: Emergency Medicine
DX: R42 Dizziness and giddiness (principal); R11.0 Nausea; Z79.899 Other long term (current) drug therapy; Z79.82 Long term (current) use of aspirin
CPT/HCPCS: 36415; 71045; 80053; 84484; 85025; 93005; 93010; 99285-25

== ENCOUNTER 2021-05-26 01:11 | Emergency (ER) | payer OTHER ==
[~2021-05-26] VITALS: Ht 160 cm; Wt 43.1 kg
[2021-05-26 03:09] LABS: BASOPHILS ABSOLUTE AUTO 0.03 K/mm3 (0.00-0.23); BASOPHILS PERCENT AUTO 0 % (0-2); EOSINOPHILS ABSOLUTE AUTO 0.25 K/mm3 (0.00-0.68); EOSINOPHILS PERCENT AUTO 2 % (0-6); Hemoglobin 10.2 g/dL (11.5-16.0); IMMATURE GRAN ABSOLUTE AUTO 0.14 K/mm3 (0.00-0.10); IMMATURE GRAN PERCENT AUTO 1 % (0-1); LYMPHOCYTES PERCENT AUTO 17 % (21-46); MONOCYTES ABSOLUTE AUTO 0.93 K/mm3 (0.16-1.47); MONOCYTES PERCENT AUTO 7 % (4-13); Mean Corpuscular HGB 28.8 pg (26.0-34.0); Mean Corpuscular HGB Conc 32.9 g/dL (31.5-36.5); Mean Corpuscular Volume 88 fL (80-100); Mean Platelet Volume 9.4 fL (9.1-12.4); NEUTROPHILS ABSOLUTE AUTO 9.55 K/mm3 (1.96-9.15); NEUTROPHILS PERCENT AUTO 72 % (41-73); Platelet Count 286 K/mm3 (150-400); RDW Coefficient Variation 15.1 % (11.7-14.2); RDW Standard Deviation 48.9 fL (35.1-46.3); Red Blood Cell Count 3.54 M/mm3 (3.80-5.20)
[2021-05-26 03:24] LABS: International Normalized Ratio 1.08; Prothrombin Time Results 11.6 Sec (9.7-11.5)
[2021-05-26 03:26] LABS: Albumin, Blood 2.8 g/dL (3.4-5.0); Albumin/Globulin Ratio 0.8 (0.8-1.8); Bilirubin, Total 0.3 mg/dL (0.1-1.0); Bun/Creatinine Ratio 9.1 (12.0-20.0); Calcium, Blood 8.1 mg/dL (8.5-10.1); Creatinine, Blood 4.73 mg/dL (0.40-1.00); Globulin, Blood 3.5 g/dL (2.2-4.0); Potassium, Blood 4.1 mmol/L (3.5-5.5); Total Protein, Blood 6.3 g/dL (6.4-8.2)
[2021-05-26] MEDS ORDERED: HYDR1TAB94 PO (04:33)
== END 2021-05-26 05:30 | disposition home or self-care (01) ==
LOC: ER 01:11
PROVIDERS: Emergency Medicine
DX: S32.592A Other specified fracture of left pubis, initial encounter for closed fracture (principal); M25.511 Pain in right shoulder; I13.2 Hypertensive heart and chronic kidney disease with heart failure and with stage 5 chronic kidney disease, or end stage renal disease; E11.22 Type 2 diabetes mellitus with diabetic chronic kidney disease; I50.9 Heart failure, unspecified; N18.6 End stage renal disease; J44.9 Chronic obstructive pulmonary disease, unspecified; I48.91 Unspecified atrial fibrillation; Z88.8 Allergy status to other drugs, medicaments and biological substances; Z79.899 Other long term (current) drug therapy; Z79.01 Long term (current) use of anticoagulants; Z79.82 Long term (current) use of aspirin; Z99.2 Dependence on renal dialysis; W06.XXXA Fall from bed, initial encounter
CPT/HCPCS: 36415; 70450; 72125; 72192; 73030; 80053; 83880; 85025; 85610; 96374; 99284-25; J2270

== ENCOUNTER 2021-05-29 16:03 | Emergency (ER) | payer OTHER ==
[~2021-05-29] VITALS: Ht 157.5 cm; Wt 40.8 kg
[2021-05-29 16:43] LABS: BASOPHILS ABSOLUTE AUTO 0.03 K/mm3 (0.00-0.23); BASOPHILS PERCENT AUTO 0 % (0-2); EOSINOPHILS ABSOLUTE AUTO 0.21 K/mm3 (0.00-0.68); EOSINOPHILS PERCENT AUTO 2 % (0-6); Hematocrit 36.5 % (33.0-51.0); Hemoglobin 11.5 g/dL (11.5-16.0); IMMATURE GRAN PERCENT AUTO 1 % (0-1); LYMPHOCYTES ABSOLUTE AUTO 1.36 K/mm3 (0.84-5.20); LYMPHOCYTES PERCENT AUTO 11 % (21-46); MONOCYTES ABSOLUTE AUTO 0.63 K/mm3 (0.16-1.47); MONOCYTES PERCENT AUTO 5 % (4-13); Mean Corpuscular HGB 27.9 pg (26.0-34.0); Mean Corpuscular HGB Conc 31.5 g/dL (31.5-36.5); Mean Corpuscular Volume 89 fL (80-100); Mean Platelet Volume 9.3 fL (9.1-12.4); NEUTROPHILS ABSOLUTE AUTO 10.61 K/mm3 (1.96-9.15); NEUTROPHILS PERCENT AUTO 82 % (41-73); Platelet Count 340 K/mm3 (150-400); RDW Coefficient Variation 15.1 % (11.7-14.2); Red Blood Cell Count 4.12 M/mm3 (3.80-5.20); White Blood Cell Count 12.94 K/mm3 (4.00-11.30)
[2021-05-29 17:01] LABS: Troponin I <0.015 ng/mL (0.000-0.040)
[2021-05-29 17:42] LABS: Alanine Aminotransfer (ALT/SGP 32 U/L (12-78); Albumin, Blood 2.8 g/dL (3.4-5.0); Albumin/Globulin Ratio 0.6 (0.8-1.8); Alk Phos 107 U/L (50-136); Anion Gap 7 mmol/L (6-16); Aspartate Aminotrans (AST/SGOT 7 U/L (12-37); Bilirubin, Total 0.4 mg/dL (0.1-1.0); Blood Urea Nitrogen 27 mg/dL (8-24); Bun/Creatinine Ratio 8.6 (12.0-20.0); CO2, Blood 32 mmol/L (21-32); Calcium, Blood 8.4 mg/dL (8.5-10.1); Chloride, Blood 96 mmol/L (98-108); Creatinine, Blood 3.15 mg/dL (0.40-1.00); Globulin, Blood 4.6 g/dL (2.2-4.0); Glomerular Filtration Rate 14 (60-); Glucose, Blood 160 mg/dL (70-99); Potassium, Blood 3.6 mmol/L (3.5-5.5); Sodium, Blood 135 mmol/L (136-145); Total Protein, Blood 7.4 g/dL (6.4-8.2)
[2021-05-29] MEDS ORDERED: Prednisone20 MG PO (19:56)
== END 2021-05-29 20:07 | disposition home or self-care (01) ==
LOC: ER 16:03
PROVIDERS: Emergency Medicine
DX: J44.9 Chronic obstructive pulmonary disease, unspecified (principal); I13.2 Hypertensive heart and chronic kidney disease with heart failure and with stage 5 chronic kidney disease, or end stage renal disease; E11.22 Type 2 diabetes mellitus with diabetic chronic kidney disease; I50.9 Heart failure, unspecified; N18.6 End stage renal disease; I48.91 Unspecified atrial fibrillation; F17.210 Nicotine dependence, cigarettes, uncomplicated; Z99.2 Dependence on renal dialysis; Z88.8 Allergy status to other drugs, medicaments and biological substances; Z79.899 Other long term (current) drug therapy; Z79.01 Long term (current) use of anticoagulants; Z79.82 Long term (current) use of aspirin
CPT/HCPCS: 36415; 71045; 80053; 84484; 85025; 93005; 93010; 94640; 96374; 99285-25; J2930

== ENCOUNTER 2021-06-18 08:10 | Day surgery (SDC) | payer OTHER ==
[~2021-06-18] VITALS: Ht 160 cm; Wt 43.2 kg
[~2021-06-18 08:10] MED LIST changes: +Prednisone20 MG PO
[2021-06-18] MEDS ORDERED: FERSU300 PO (08:21)
[2021-06-18] MEDS ORDERED: Rena-Vite Tabl0.8 MG PO (08:23)
[2021-06-18] MEDS ORDERED: TIOT18 INH (08:26)
[2021-06-18] MEDS ORDERED: ONDA4 PO (08:26)
== END 2021-06-18 12:00 | disposition home or self-care (01) ==
LOC: MHTC 08:10
DX: I12.0 Hypertensive chronic kidney disease with stage 5 chronic kidney disease or end stage renal disease (principal); E11.22 Type 2 diabetes mellitus with diabetic chronic kidney disease; N18.6 End stage renal disease; J44.9 Chronic obstructive pulmonary disease, unspecified; F17.210 Nicotine dependence, cigarettes, uncomplicated; Z46.6 Encounter for fitting and adjustment of urinary device; Z88.8 Allergy status to other drugs, medicaments and biological substances; Z79.01 Long term (current) use of anticoagulants; Z79.82 Long term (current) use of aspirin
CPT/HCPCS: 99152; 99153; C1729; C1769; J2250; J3010; J7030; J7040; Q9967

== ENCOUNTER 2021-06-26 21:15 | Emergency (ER) | payer OTHER ==
[~2021-06-26] VITALS: Ht 160 cm; Wt 44.5 kg
[~2021-06-26 21:15] MED LIST changes: +Rena-Vite Tabl0.8 MG PO
[2021-06-26 21:50] LABS: BASOPHILS ABSOLUTE AUTO 0.09 K/mm3 (0.00-0.23); BASOPHILS PERCENT AUTO 1 % (0-2); EOSINOPHILS ABSOLUTE AUTO 0.37 K/mm3 (0.00-0.68); EOSINOPHILS PERCENT AUTO 3 % (0-6); Hematocrit 34.9 % (33.0-51.0); Hemoglobin 10.9 g/dL (11.5-16.0); IMMATURE GRAN ABSOLUTE AUTO 0.11 K/mm3 (0.00-0.10); IMMATURE GRAN PERCENT AUTO 1 % (0-1); LYMPHOCYTES ABSOLUTE AUTO 1.75 K/mm3 (0.84-5.20); LYMPHOCYTES PERCENT AUTO 15 % (21-46); MONOCYTES ABSOLUTE AUTO 1.18 K/mm3 (0.16-1.47); MONOCYTES PERCENT AUTO 10 % (4-13); Mean Corpuscular HGB 27.4 pg (26.0-34.0); Mean Corpuscular HGB Conc 31.2 g/dL (31.5-36.5); Mean Corpuscular Volume 88 fL (80-100); Mean Platelet Volume 9.9 fL (9.1-12.4); NEUTROPHILS PERCENT AUTO 70 % (41-73); Platelet Count 300 K/mm3 (150-400); RDW Coefficient Variation 15.3 % (11.7-14.2); RDW Standard Deviation 48.4 fL (35.1-46.3); Red Blood Cell Count 3.98 M/mm3 (3.80-5.20)
[2021-06-26] MEDS ORDERED: Sanctura20 MG PO (21:50)
[2021-06-26] MEDS ORDERED: ASPI81CH PO (21:52)
[2021-06-26] MEDS ORDERED: MELATONIN5 M1 PO (21:53)
[2021-06-26] MEDS ORDERED: FLUT1DIS5 INH (21:56)
[2021-06-26 22:07] LABS: Albumin, Blood 2.4 g/dL (3.4-5.0); Albumin/Globulin Ratio 0.5 (0.8-1.8); Bilirubin, Total 0.3 mg/dL (0.1-1.0); Bun/Creatinine Ratio 8.7 (12.0-20.0); Calcium, Blood 8.4 mg/dL (8.5-10.1); Creatinine, Blood 3.21 mg/dL (0.40-1.00); Globulin, Blood 4.6 g/dL (2.2-4.0); Potassium, Blood 3.8 mmol/L (3.5-5.5)
[2021-06-26 23:25] LABS: Source, Urine Clean Catch
[2021-06-26 23:27] LABS: Blood, Urine 5+ (Neg); Glucose Qualitative, Urine 3+ (Neg); Ketones, Urine 1+ (Neg); Leukocyte Esterase, Urine 3+ (Neg); Nitrite, Urine Pos (Neg); Protein, Urine 3+ (Neg); Urobilinogen, Urine 1+ (Normal)
[2021-06-26 23:39] LABS: Appearance, Urine Cloudy (Clear); Bilirubin, Urine 1+ (Neg); Color, Urine Red (P-Yellow)
[2021-06-26 23:40] LABS: Bacteria Mod /hpf; Red Blood Cells, Urine TNTC /hpf (0-2); Squamous Epithelial Cells Not Seen /hpf (Few); White Blood Cells, Urine 25-50 /hpf (0-5)
[2021-06-27] MEDS ORDERED: CEFP200 PO
== END 2021-06-27 00:57 | disposition home or self-care (01) ==
LOC: ER 21:15
PROVIDERS: Student in an Organized Health Care Education/Training Program
DX: N39.0 Urinary tract infection, site not specified (principal); R31.9 Hematuria, unspecified; I13.0 Hypertensive heart and chronic kidney disease with heart failure and stage 1 through stage 4 chronic kidney disease, or unspecified chronic kidney disease; E11.22 Type 2 diabetes mellitus with diabetic chronic kidney disease; I50.9 Heart failure, unspecified; N18.6 End stage renal disease; J44.9 Chronic obstructive pulmonary disease, unspecified; I48.91 Unspecified atrial fibrillation; F17.210 Nicotine dependence, cigarettes, uncomplicated; Z88.8 Allergy status to other drugs, medicaments and biological substances; Z79.899 Other long term (current) drug therapy; Z79.82 Long term (current) use of aspirin; Z99.2 Dependence on renal dialysis
CPT/HCPCS: 36415; 80053; 81001; 85025; 87086; 87147; 93005; 93010; 99284-25; A9270

== ENCOUNTER 2021-07-02 19:55 | Emergency (ER) | payer OTHER ==
[~2021-07-02] VITALS: Ht 160 cm; Wt 43.1 kg
[~2021-07-02 19:55] MED LIST changes: +MELATONIN5 M1 PO
[2021-07-02 21:37] LABS: BASOPHILS ABSOLUTE AUTO 0.06 K/mm3 (0.00-0.23); BASOPHILS PERCENT AUTO 1 % (0-2); EOSINOPHILS ABSOLUTE AUTO 0.31 K/mm3 (0.00-0.68); EOSINOPHILS PERCENT AUTO 3 % (0-6); Hematocrit 33.4 % (33.0-51.0); Hemoglobin 10.5 g/dL (11.5-16.0); IMMATURE GRAN ABSOLUTE AUTO 0.07 K/mm3 (0.00-0.10); IMMATURE GRAN PERCENT AUTO 1 % (0-1); LYMPHOCYTES PERCENT AUTO 22 % (21-46); MONOCYTES ABSOLUTE AUTO 1.07 K/mm3 (0.16-1.47); MONOCYTES PERCENT AUTO 9 % (4-13); Mean Corpuscular HGB 27.7 pg (26.0-34.0); Mean Corpuscular HGB Conc 31.4 g/dL (31.5-36.5); Mean Corpuscular Volume 88 fL (80-100); NEUTROPHILS PERCENT AUTO 66 % (41-73); RDW Coefficient Variation 15.4 % (11.7-14.2); Red Blood Cell Count 3.79 M/mm3 (3.80-5.20); White Blood Cell Count 11.61 K/mm3 (4.00-11.30)
[2021-07-02 21:39] LABS: Mean Platelet Volume 9.5 fL (9.1-12.4); Platelet Count 283 K/mm3 (150-400)
[2021-07-02 21:53] LABS: Albumin, Blood 2.4 g/dL (3.4-5.0); Albumin/Globulin Ratio 0.5 (0.8-1.8); Bilirubin, Total 0.3 mg/dL (0.1-1.0); Bun/Creatinine Ratio 9.4 (12.0-20.0); Calcium, Blood 8.7 mg/dL (8.5-10.1); Creatinine, Blood 3.71 mg/dL (0.40-1.00); Globulin, Blood 4.5 g/dL (2.2-4.0); Potassium, Blood 4.4 mmol/L (3.5-5.5); Total Protein, Blood 6.9 g/dL (6.4-8.2)
== END 2021-07-03 00:40 | disposition home or self-care (01) ==
LOC: ER 19:55
PROVIDERS: Emergency Medicine
DX: R06.00 Dyspnea, unspecified (principal); E11.22 Type 2 diabetes mellitus with diabetic chronic kidney disease; J44.9 Chronic obstructive pulmonary disease, unspecified; I50.9 Heart failure, unspecified; I13.2 Hypertensive heart and chronic kidney disease with heart failure and with stage 5 chronic kidney disease, or end stage renal disease; N18.6 End stage renal disease; F17.200 Nicotine dependence, unspecified, uncomplicated; Z79.899 Other long term (current) drug therapy
CPT/HCPCS: 71046; 80053; 83880; 85025; 93005; 93010; 99285-25

== ENCOUNTER 2021-09-01 22:52 | Emergency (ER) | payer OTHER ==
[~2021-09-01] VITALS: Ht 160 cm; Wt 47.2 kg
[2021-09-01 23:32] LABS: BASOPHILS ABSOLUTE AUTO 0.06 K/mm3 (0.00-0.23); BASOPHILS PERCENT AUTO 0 % (0-2); EOSINOPHILS ABSOLUTE AUTO 0.18 K/mm3 (0.00-0.68); EOSINOPHILS PERCENT AUTO 1 % (0-6); Hematocrit 30.1 % (33.0-51.0); Hemoglobin 9.8 g/dL (11.5-16.0); IMMATURE GRAN ABSOLUTE AUTO 0.09 K/mm3 (0.00-0.10); IMMATURE GRAN PERCENT AUTO 1 % (0-1); LYMPHOCYTES ABSOLUTE AUTO 2.34 K/mm3 (0.84-5.20); LYMPHOCYTES PERCENT AUTO 17 % (21-46); MONOCYTES ABSOLUTE AUTO 0.94 K/mm3 (0.16-1.47); MONOCYTES PERCENT AUTO 7 % (4-13); Mean Corpuscular HGB 28.8 pg (26.0-34.0); Mean Corpuscular HGB Conc 32.6 g/dL (31.5-36.5); Mean Corpuscular Volume 89 fL (80-100); Mean Platelet Volume 9.5 fL (9.1-12.4); NEUTROPHILS ABSOLUTE AUTO 10.01 K/mm3 (1.96-9.15); NEUTROPHILS PERCENT AUTO 74 % (41-73); Platelet Count 281 K/mm3 (150-400); RDW Coefficient Variation 16.6 % (11.7-14.2); RDW Standard Deviation 54.2 fL (35.1-46.3); White Blood Cell Count 13.62 K/mm3 (4.00-11.30)
[2021-09-01] MEDS ORDERED: [UNRECOGNIZED DRUG - OTHER] (23:44)
[2021-09-01] MEDS ORDERED: Doxycycline Mo100 M1 (23:46)
[2021-09-02 00:09] LABS: Influenza A, PCR NEGATIVE (NEGATIVE); Influenza B, PCR NEGATIVE (NEGATIVE); Resp Syncytial Virus, PCR NEGATIVE (NEGATIVE); SARS-Cov-2 (COVID-19) PCR, MMC NEGATIVE (NEGATIVE)
[2021-09-02 00:21] LABS: Troponin I <0.015 ng/mL (0.000-0.040)
[2021-09-02 00:22] LABS: Alanine Aminotransfer (ALT/SGP 23 U/L (12-78); Albumin, Blood 2.2 g/dL (3.4-5.0); Albumin/Globulin Ratio 0.6 (0.8-1.8); Alk Phos 85 U/L (50-136); Anion Gap 8 mmol/L (6-16); Aspartate Aminotrans (AST/SGOT 15 U/L (12-37); Bilirubin, Total 0.2 mg/dL (0.1-1.0); Blood Urea Nitrogen 14 mg/dL (8-24); Bun/Creatinine Ratio 6.9 (12.0-20.0); CO2, Blood 31 mmol/L (21-32); Chloride, Blood 95 mmol/L (98-108); Creatinine, Blood 2.03 mg/dL (0.40-1.00); Globulin, Blood 3.8 g/dL (2.2-4.0); Glomerular Filtration Rate 24 (60-); Glucose, Blood 157 mg/dL (70-99); Potassium, Blood 3.9 mmol/L (3.5-5.5); Sodium, Blood 134 mmol/L (136-145)
== END 2021-09-02 03:15 | disposition home or self-care (01) ==
LOC: ER 22:52
PROVIDERS: Emergency Medicine
DX: J02.9 Acute pharyngitis, unspecified (principal); Z88.8 Allergy status to other drugs, medicaments and biological substances; Z79.899 Other long term (current) drug therapy; Z79.82 Long term (current) use of aspirin; I13.2 Hypertensive heart and chronic kidney disease with heart failure and with stage 5 chronic kidney disease, or end stage renal disease; E11.22 Type 2 diabetes mellitus with diabetic chronic kidney disease; I50.9 Heart failure, unspecified; N18.6 End stage renal disease; Z99.2 Dependence on renal dialysis; I48.91 Unspecified atrial fibrillation; F17.210 Nicotine dependence, cigarettes, uncomplicated
CPT/HCPCS: 0241U; 71045; 80053; 83880; 84484; 85025; 93005; 93010; 99284-25

== ENCOUNTER 2021-10-15 18:52 | Emergency (ER) | payer OTHER ==
[~2021-10-15] VITALS: Ht 160 cm; Wt 43.1 kg
[~2021-10-15 18:52] MED LIST changes: +Doxycycline Mo100 M1; +HYDROCODONE-AC1 EAC7 PO; +Megace PO; +[UNRECOGNIZED DRUG - OTHER]
[2021-10-15 19:42] LABS: BASOPHILS ABSOLUTE AUTO 0.07 K/mm3 (0.00-0.23); BASOPHILS PERCENT AUTO 1 % (0-2); EOSINOPHILS PERCENT AUTO 2 % (0-6); Hematocrit 29.4 % (33.0-51.0); Hemoglobin 9.5 g/dL (11.5-16.0); IMMATURE GRAN ABSOLUTE AUTO 0.13 K/mm3 (0.00-0.10); IMMATURE GRAN PERCENT AUTO 1 % (0-1); LYMPHOCYTES ABSOLUTE AUTO 2.81 K/mm3 (0.84-5.20); LYMPHOCYTES PERCENT AUTO 18 % (21-46); MONOCYTES ABSOLUTE AUTO 1.12 K/mm3 (0.16-1.47); MONOCYTES PERCENT AUTO 7 % (4-13); Mean Corpuscular HGB 29.3 pg (26.0-34.0); Mean Corpuscular HGB Conc 32.3 g/dL (31.5-36.5); Mean Corpuscular Volume 91 fL (80-100); Mean Platelet Volume 9.3 fL (9.1-12.4); NEUTROPHILS ABSOLUTE AUTO 10.95 K/mm3 (1.96-9.15); NEUTROPHILS PERCENT AUTO 71 % (41-73); Platelet Count 346 K/mm3 (150-400); RDW Standard Deviation 52.4 fL (35.1-46.3); Red Blood Cell Count 3.24 M/mm3 (3.80-5.20); White Blood Cell Count 15.38 K/mm3 (4.00-11.30)
[2021-10-15] MEDS ORDERED: CEFP200 PO (22:18)
[2021-10-16] MEDS ORDERED: METO25 PO (13:14)
[2021-10-16] MEDS ORDERED: NITR100CA PO (13:15)
== END 2021-10-15 22:25 | disposition home or self-care (01) ==
LOC: ER 18:52
PROVIDERS: Physician Assistant
DX: N39.0 Urinary tract infection, site not specified (principal); R31.9 Hematuria, unspecified; I50.9 Heart failure, unspecified; I13.2 Hypertensive heart and chronic kidney disease with heart failure and with stage 5 chronic kidney disease, or end stage renal disease; N18.6 End stage renal disease; J44.9 Chronic obstructive pulmonary disease, unspecified; I48.91 Unspecified atrial fibrillation; F17.210 Nicotine dependence, cigarettes, uncomplicated; E11.9 Type 2 diabetes mellitus without complications; Z79.82 Long term (current) use of aspirin; Z79.899 Other long term (current) drug therapy; Z91.09 Other allergy status, other than to drugs and biological substances
CPT/HCPCS: 36415; 85025; 96374; 99283; J0696; J7030

== ENCOUNTER 2021-10-17 09:00 | Day surgery (SDC) | payer OTHER ==
[~2021-10-17] VITALS: Ht 160 cm; Wt 44.9 kg
[~2021-10-17 09:00] MED LIST changes: +METO25 PO; +NITR100CA PO
[2021-10-17] MEDS ORDERED: Calcium Carbon500 MG PO (09:44)
[2021-10-17] MEDS ORDERED: CALCIUM CITRAT1 EAC9 PO (09:46)
[2021-10-17] MEDS ORDERED: LOPE2C PO (09:46)
[2021-10-17] MEDS ORDERED: ONDA4 PO (09:47)
--- NOTE | 2021-10-17 11:30 | NUR ---
PT TO RECOVERY ROOM POST PROCEDURE. PT AWAKE AND CONVERSING APPROPRIATELY-NO SEDATION GIVE; DENIES PAIN POST PROCEDURE. MONITOR SR 60'S, B/P 161/80, AFEBRILE, SPO2 96% 2L NC-PT USES O2 AT HOME. R FLANK NEPH TUBE SITE NO SWELLING/HEMATOMA, STAY FIX DRSG IN PLACE AND CONNECTED TO DRAINAGE BAG. NEPH TUBE DRAINING SM AMT OF GARY BLOOD, DR FITZPATRICK AWARE.
--- NOTE | 2021-10-17 12:45 | NUR ---
PT DRESSED SELF WITHOUT ISSUE, SITE UNCHANGED.
--- NOTE | 2021-10-17 13:00 | NUR ---
PT RECEIVED DISCHARGE INSTRUCTIONS, MED LIST AND AFTER CARE INSTRUCTIONS; VERBALIZED GOOD UNDERSTANDING. PT LEFT FACILITY VIA W/C, CONDITION DIMITRY.
== END 2021-10-17 13:00 | disposition home or self-care (01) ==
LOC: MHTC 09:00
DX: N13.5 Crossing vessel and stricture of ureter without hydronephrosis (principal); I12.0 Hypertensive chronic kidney disease with stage 5 chronic kidney disease or end stage renal disease; E11.22 Type 2 diabetes mellitus with diabetic chronic kidney disease; N18.6 End stage renal disease; J44.9 Chronic obstructive pulmonary disease, unspecified; F17.210 Nicotine dependence, cigarettes, uncomplicated; Z99.2 Dependence on renal dialysis; Z88.8 Allergy status to other drugs, medicaments and biological substances; Z93.6 Other artificial openings of urinary tract status; Z79.82 Long term (current) use of aspirin; Z79.01 Long term (current) use of anticoagulants
CPT/HCPCS: C1729; C1769; C1887; J1644; J7050; Q9967

== ENCOUNTER 2021-11-01 14:36 | Emergency (ER) | payer OTHER ==
[~2021-11-01] VITALS: Ht 160 cm; Wt 49.9 kg
[~2021-11-01 14:36] MED LIST changes: +CALCIUM CITRAT1 EAC9 PO; +Calcium Carbon500 MG PO; +LOPE2C PO
[2021-11-01 15:09] LABS: BASOPHILS ABSOLUTE AUTO 0.02 K/mm3 (0.00-0.23); BASOPHILS PERCENT AUTO 0 % (0-2); EOSINOPHILS ABSOLUTE AUTO 0.03 K/mm3 (0.00-0.68); EOSINOPHILS PERCENT AUTO 0 % (0-6); Hematocrit 28.4 % (33.0-51.0); Hemoglobin 9.2 g/dL (11.5-16.0); IMMATURE GRAN ABSOLUTE AUTO 0.48 K/mm3 (0.00-0.10); IMMATURE GRAN PERCENT AUTO 4 % (0-1); LYMPHOCYTES ABSOLUTE AUTO 1.79 K/mm3 (0.84-5.20); LYMPHOCYTES PERCENT AUTO 13 % (21-46); MONOCYTES ABSOLUTE AUTO 0.97 K/mm3 (0.16-1.47); MONOCYTES PERCENT AUTO 7 % (4-13); Mean Corpuscular HGB 29.1 pg (26.0-34.0); Mean Corpuscular HGB Conc 32.4 g/dL (31.5-36.5); Mean Corpuscular Volume 90 fL (80-100); Mean Platelet Volume 9.7 fL (9.1-12.4); NEUTROPHILS ABSOLUTE AUTO 10.28 K/mm3 (1.96-9.15); NEUTROPHILS PERCENT AUTO 76 % (41-73); Platelet Count 452 K/mm3 (150-400); RDW Coefficient Variation 15.5 % (11.7-14.2); RDW Standard Deviation 50.7 fL (35.1-46.3); Red Blood Cell Count 3.16 M/mm3 (3.80-5.20); White Blood Cell Count 13.57 K/mm3 (4.00-11.30)
[2021-11-01 15:38] LABS: Albumin, Blood 2.4 g/dL (3.4-5.0); Albumin/Globulin Ratio 0.6 (0.8-1.8); Bilirubin, Total 0.4 mg/dL (0.1-1.0); Bun/Creatinine Ratio 19.2 (12.0-20.0); Calcium, Blood 8.1 mg/dL (8.5-10.1); Creatinine, Blood 3.07 mg/dL (0.40-1.00); Globulin, Blood 4.3 g/dL (2.2-4.0); Potassium, Blood 3.9 mmol/L (3.5-5.5); Total Protein, Blood 6.7 g/dL (6.4-8.2)
[2021-11-01 17:06] LABS: Appearance, Urine Turbid (Clear); Bilirubin, Urine Neg (Neg); Blood, Urine 4+ (Neg); Color, Urine Yellow (P-Yellow); Glucose Qualitative, Urine Neg (Neg); Ketones, Urine Neg (Neg); Leukocyte Esterase, Urine 3+ (Neg); Nitrite, Urine Neg (Neg); Protein, Urine 3+ (Neg); Urobilinogen, Urine NORM (Normal)
[2021-11-01 17:19] LABS: Appearance, Urine Turbid (Clear); Bilirubin, Urine Neg (Neg); Blood, Urine 3+ (Neg); Color, Urine Yellow (P-Yellow); Glucose Qualitative, Urine Neg (Neg); Ketones, Urine Neg (Neg); Leukocyte Esterase, Urine 3+ (Neg); Nitrite, Urine Neg (Neg); Protein, Urine 3+ (Neg); Urobilinogen, Urine NORM (Normal); pH, Urine 6.5 (5.0-8.0)
[2021-11-01] MEDS ORDERED: MORP20L PO (17:22)
[2021-11-01 17:26] LABS: Bacteria Many /hpf; Squamous Epithelial Cells Few /hpf (Few)
[2021-11-01 17:27] LABS: Amorphous Light (0-Heavy); Triple Phosphate Crystals Few /hpf
--- NOTE | 2021-11-01 17:39 | NUR ---
ED Palliative Care Consult Spoke with Dr Tapia and discussed case. Pt would benefit from discussion regarding goals of care. Pt resting on gurney upon arrival. Pt is known to this gag writer from previous hospital stays. Offered therapeutic listening as Pt reports being tired of dialysis and no longer wants to continue dialysis. Discussed hospice as an option with Pt initialy saying no. She states "hospice will keep me alive". Educated on hospice philosophy with V/U made by Pt. Pt is agreeable for hospice services. Pt gives this RN verbal permission to call family. Attempted to call Pt's son Aric and left message with request for a return phone call. Called and spoke with Pt's daughter in law Candace. Discussed Pt's wishes with Candace reporting family will be on board with Pt's wishes. Candace reports family's preference is [facility]. Spoke with [facility]. Dr Tapia signs [facility] orders. Faxed [facility] [place] signed orders. Dr Tapia to write a prescription for Roxanol for Pt to go home with. Spoke with ED Dry Can Tender Analilia and discussed case. Analilia will call family when Pt is ready to D/C home. Palliative Care will remain available.
[2021-11-01 17:40] LABS: Source, Urine Clean Catch
[2021-11-01 17:44] LABS: Source, Urine Nephrostomy
[2021-11-01 17:47] LABS: Bacteria Many /hpf; Squamous Epithelial Cells Few /hpf (Few); White Blood Cells, Urine 50-100 /hpf (0-5)
== END 2021-11-01 18:18 | disposition home or self-care (01) ==
LOC: ER 14:36
PROVIDERS: Emergency Medicine
DX: K92.1 Melena (principal); I13.2 Hypertensive heart and chronic kidney disease with heart failure and with stage 5 chronic kidney disease, or end stage renal disease; N18.6 End stage renal disease; I48.91 Unspecified atrial fibrillation; Z88.8 Allergy status to other drugs, medicaments and biological substances; Z79.899 Other long term (current) drug therapy; Z79.82 Long term (current) use of aspirin; I50.9 Heart failure, unspecified; J44.9 Chronic obstructive pulmonary disease, unspecified; E11.22 Type 2 diabetes mellitus with diabetic chronic kidney disease; F17.210 Nicotine dependence, cigarettes, uncomplicated
CPT/HCPCS: 36415; 80053; 81001; 85025; 86850; 86900; 86901; 87077; 87086; 87186; 93005; 93010; 99284-25